=== PATIENT | female | born 1990 | race Caucasian/White ===

== ENCOUNTER → 2018-01-22 10:48 | Outpatient (CLI) | payer OTHER, SELFPAY ==
--- NOTE | 2018-01-22 10:52 | RAD_ITS ---
STUDY: X-RAY CHEST REASON FOR EXAM: Female, 27 years old. EPIGASTRIC PAIN TECHNIQUE: Frontal and lateral views of the chest. COMPARISON: None. FINDINGS: The lungs are clear and expanded. There is no demonstrated pleural abnormality. Normal size heart. Normal mediastinum and cecilia. Normal visualized pulmonary arteries. Normal visualized aortic arch and descending thoracic aorta. Normal visualized thoracic spine. Normal visualized ribs, clavicles, and shoulders. There is no demonstrated abnormality of the visualized soft tissue structures of the upper abdomen. RAD/Chest PA and Lateral IMPRESSION: Normal x-ray examination of the chest. Electronically Signed: Nicole Baires MD at 11:33 EDT Tel , Service support ,
== END ==
PROVIDERS: Family Provider Internal Medicine; PCP Internal Medicine; Visit Provider Physician Assistant
DX: R10.9 Unspecified abdominal pain (principal); Z87.09 Personal history of other diseases of the respiratory system
CPT/HCPCS: 71046

== ENCOUNTER 2018-01-24 12:20 | Observation (INO) | payer OTHER, SELFPAY ==
[2018-01-24] VITALS (7 sets, daily range): BP systolic 110–128; BP diastolic 69–87; PULSE 67–100; RESP 16; TEMP 36.6–37.2; O2SAT 100; BMI 25.6; BMI 25.2
--- NOTE | 2018-01-24 12:54 | ED.VISSUMM ---
- ER Visit Summary Date of Service: 01/24/18 Chief Complaint: Black stool History of Present Illness: The patient is a 27 F with nausea, vomiting, and diarrhea this week. Today she had diarrhea with black stool, 6 episodes. She has a history of cholecystectomy and had a upper endoscopy last year which she said was normal. No history of ulcer. No blood thinners. No history of liver disease or heavy alcohol use. Physical Examination: Vital signs unremarkable. Afebrile. No acute distress. Lungs clear. Heart regular. Abdomen diffusely tender, mildly. No guarding or rebound. No distention or masses. Skin appears normal. Test Results: We will check labs, urinalysis, and Hemoccult. Emergency Department Course and Treatment: Patient received Protonix while awaiting results. Hemoccult positive. Hemoglobin 8.7. Otherwise labs fairly unremarkable. test negative. Patient has remained stable. I spoke with Dr. Montalvo who said he would likely scope the patient tomorrow. I spoke with the hospitalist who will admit. Type and screen pending. Treatment Plan: As above Disposition: Admission Impression: 1. Upper GI bleed 2. Anemia This note was generated with [employer] dictation software. It may contain incorrect words, spelling, and punctuation that were not noted in review of the chart prior to signing ED Disposition - Plan for ED Patient: Chief Complaint: Abd Pain Referrals: Kathie Najera DO [Primary Care Provider] -
[2018-01-24 13:30] LABS: Mucous, Urine 0 SEEN /hpf (<or=2+); Red Blood Cells-Urine 0 SEEN /hpf (0-5); Squamous Epithelial Cells - UA 0 SEEN /hpf (5-10); White Blood Cells 0 SEEN /hpf (0-5)
[2018-01-24 13:37] LABS: Absolute Lymphocyte Count 1.47 X10^3/ul (0.83-4.51); Absolute Neutrophil Count 4.6 X10^3/uL (2.0-7.7); Basophil# 0.04 X10^3/uL; Basophil% 0.6 % (0-1); Color, Urine Yellow (Yellow); Eosinophil# 0.14 X10^3/uL; Glucose, Dipstick Normal (Normal); Hematocrit 28.9 % (37-47); Hemoglobin 8.7 g/dl (12.0-15.0); Ketone-Dipstick Negative (Negative); Leukocyte Esterase-Dipstick Negative /ul (Negative); Lymphocyte # 1.47 X10^3/ul (4.0); Lymphocyte % 21.2 % (19-41); Mean Corp Hgb Conc 30.1 g/gl (32-36); Mean Corpuscular Volume 79.8 fL (81-99); Mean Platelet Vol. 11.6 fl (6.2-12.0); Monocyte# 0.74 X10^3/uL; Monocyte% 10.7 % (0-10); Neutrophil # 4.55 X10^3/uL (2.7-7.7); Neutrophil % 65.5 % (47-70); Nitrite-Dipstick Negative (Negative); Occult Blood-Urine Negative /ul (Negative); POSITIVE COUNT NO; POSITIVE DIFFERENTIAL NO; POSITIVE MORPHOLOGY NO; Platelet Count 250 K/mm3 (150-450); Protein-Dipstick Negative (Negative); RBC Distribution Width CV 14.5 % (11.6-14.6); RBC Distribution Width SD 42.2 fl (35.1-43.9); Red Blood Count 3.62 M/mm3 (4.2-5.4); Specific Gravity, Urine 1.015 (1.002-1.030); Urine Bilirubin Dipstick Negative (Negative); Urine Clarity Sl. Cloudy (Clear); Urine Urobilinogen Normal (Normal); White Blood Count 6.9 K/mm3 (4.4-11.0)
[2018-01-24 13:40] LABS: International Normalized Ratio 1.1; Prothrombin Time (Protime)PT. 13.9 SECONDS (11.7-14.9)
[2018-01-24 13:46] LABS: Bacteria RARE /hpf (None Seen)
[2018-01-24 13:48] LABS: AST(SGOT) 12 U/L (15-37); Alanine Aminotransfer ALT/SGPT 16 U/L (13-56); Albumin, Serum 3.7 g/dL (3.2-5.0); Alkaline Phosphatase 36 U/L (45-117); Anion Gap 6 (5-15); BUN 30 mg/dL (7-18); Calcium,Total 8.8 mg/dL (8.5-10.1); Chloride 108 mmol/L (98-107); Creatinine, Serum 0.86 mg/dL (0.55-1.02); EST Glomerular Filtration Rate 83 mL/min (>60); Est Glom Filt Rate - Afr Amer 100 mL/min (>60); Estimated Creatinine Clearance 90.36 ml/min; Globulin 3.7 g/dL (2.2-4.2); Glucose 70 mg/dL (74-106); Lipase 70 U/L (73-393); Potassium 3.9 mmol/L (3.5-5.1); Protein, Total 7.4 g/dL (6.4-8.2); Sodium Level 142 mmol/L (136-145)
[2018-01-24 13:59] LABS: Pregnancy, Serum, hCG Quali. NEGATIVE Negative (0-9 Nonpreg)
--- NOTE | 2018-01-24 16:29 | CON.PCM_ITS ---
Problem List (1) GI bleed Status: Acute Qualifiers: GI bleed type/associated pathology: melena Qualified Code(s): K92.1 - Melena (2) Anemia Status: Acute Qualifiers: Anemia type: unspecified type Qualified Code(s): D64.9 - Anemia, unspecified Reason for Consult Date of Consultation: 01/24/18 History of Present Illness: The patient is a 27 year old F who presents to the emergency department with a 1 day history of melanotic stools. She has had about a 2 week history of increasing epigastric and right upper quadrant abdominal pain she states that she has not been taking any nonsteroidals or aspirin. She has had + nausea, vomiting and diarrhea. The pain has been aggressive in nature. I have taken out her gallbladder and scoped her in the past and did not find any ulcers. Although her presentation at that time was fairly consistent with peptic ulcer disease. Her hemoglobin in the emergency department was 8.7. Past Medical History Allergies ciprofloxacin [From Cipro] Allergy (Verified 01/24/18 12:22) Hives ciprofloxacin HCl [From Cipro] Allergy (Verified 01/24/18 12:22) Hives levofloxacin [From Levaquin] Allergy (Verified 01/24/18 12:22) Hives prednisone Allergy (Verified 01/24/18 12:22) Hives Home Medications: Ambulatory Orders Medication Instructions Recorded Montelukast [Singulair] 10 mg PO DAILY 04/05/17 Surgical History: cholecystectomy, - - Esophagogastroduodenoscopy with biopsies Smoking Status: Never smoker - *Family History Maternal History Items: No pertinent history Review of Systems Constitutional: Denies: Chills, Fever, Weight Change Eyes: Denies: Blurred vision, Pain, Redness, Vision Change HEENT: Denies: Dysphasia, Ear Pain, Eye Pain, Head Aches, Hearing Changes, Sore Throat Cardiovascular: Denies: Chest Pain, Chest Pressure, Chest Tightness, Palpitations Respiratory: Denies: Cough, Hemoptysis, Shortness of breath at rest, Shortness of breath upon exertion, Wheezing Gastrointestinal: Reports: Abdominal Pain, Diarrhea, Nausea, Melena, Vomiting Genitourinary: Denies: Dysuria, Frequency, Hematuria, Urgency Musculoskeletal: Denies: Joint Pain Psychiatric: Reports: - - Patient has been extremely stressed at work. Patient Problems: Active and Suspected Problems (Last Reviewed 01/22/18 @ 10:19 by Mee Diego) GI bleed (Acute) Anemia (Acute) - Physical Exam General: Alert, Oriented x3 HEENT: Atraumatic, PERRLA, EOMI, Normocephalic Oral: Moist Mucosa Neck: Supple, No JVD Lungs: Clear to auscultation Cardiovascular: Regular rate, Regular Rhythm, No murmurs Abdomen: Bowel Sounds Present, Soft, Non Tender, Non-Distended Extremities: No clubbing, No cyanosis, No edema Skin: No rashes, No breakdown Musculoskeletal: No Tenderness to Palpation of Joints or Extremities Lymphatic: No Cervical, Supraclavicular, or Inguinal Adenopathy Neurological: Cranial nerves II-XII grossly intact Psych/Mental Status: Normal Affect, Appropriate Vital Signs Temp Pulse Resp BP Pulse Ox 98 F 84 16 128/74 H 100 01/24/18 12:23 01/24/18 15:56 01/24/18 15:56 01/24/18 15:56 01/24/18 15:56 Oxygen Delivery Method Room Air Weight: 158 lb 11.725 oz Body Mass Index (BMI) 25.6 Microbiology Past 72 Hours 01/24/18 14:45 Stool Occult Blood (LITA) - Final Stool Occult Blood Positive Laboratory Tests Past 24 Hrs 01/24/18 01/24/18 01/24/18 13:20 13:20 13:20 WBC 6.9 RBC 3.62 L Hgb 8.7 L Hct 28.9 L MCV 79.8 L MCH 24.0 L MCHC 30.1 L RDW 14.5 RDW Differential 42.2 Plt Count 250 MPV 11.6 Immature Gran % (Auto) 0.000 Neut % (Auto) 65.5 Lymph % (Auto) 21.2 [place] % (Auto) 10.7 H Eos % (Auto) 2.0 Baso % (Auto) 0.6 Absolute Neuts (auto) 4.6 Absolute Lymphs (auto) 1.47 Total Counted Not Reportable PT INR APTT Sodium 142 Potassium 3.9 Chloride 108 H Carbon Dioxide 28.0 Anion Gap 6 BUN 30 H Creatinine 0.86 Estim Creat Clear Calc 90.36 Est GFR (MDRD) Af Amer 100 Est GFR (MDRD) Non-Af 83 BUN/Creatinine Ratio 35.0 H Glucose 70 L Calcium 8.8 Total Bilirubin 0.20 AST 12 L ALT 16 Alkaline Phosphatase 36 L Total Protein 7.4 Albumin 3.7 Globulin 3.7 Albumin/Globulin Ratio 1.0 Lipase 70 L Serum , Qual NEGATIVE Urine Color Urine Clarity Urine pH Ur Specific [place] Urine Protein Urine Glucose (UA) Urine Ketones Urine Occult Blood Urine Nitrite Urine Bilirubin Urine Urobilinogen Ur Leukocyte Esterase Urine RBC Urine WBC Ur Squamous Epith Cells Urine Bacteria Urine Mucus Blood Type Antibody Screen 01/24/18 01/24/18 01/24/18 13:20 13:20 15:55 WBC RBC Hgb Hct MCV MCH MCHC RDW RDW Differential Plt Count MPV Immature Gran % (Auto) Neut % (Auto) Lymph % (Auto) [place] % (Auto) Eos % (Auto) Baso % (Auto) Absolute Neuts (auto) Absolute Lymphs (auto) Total Counted PT 13.9 INR 1.1 APTT 31.0 Sodium Potassium Chloride Carbon Dioxide Anion Gap BUN Creatinine Estim Creat Clear Calc Est GFR (MDRD) Af Amer Est GFR (MDRD) Non-Af BUN/Creatinine Ratio Glucose Calcium Total Bilirubin AST ALT Alkaline Phosphatase Total Protein Albumin Globulin Albumin/Globulin Ratio Lipase Serum , Qual Urine Color Yellow Urine Clarity Sl. Cloudy Urine pH 6.0 Ur Specific [place] 1.015 Urine Protein Negative Urine Glucose (UA) Normal Urine Ketones Negative Urine Occult Blood Negative Urine Nitrite Negative Urine Bilirubin Negative Urine Urobilinogen Normal Ur Leukocyte Esterase Negative Urine RBC 0 SEEN Urine WBC 0 SEEN Ur Squamous Epith Cells 0 SEEN Urine Bacteria RARE Urine Mucus 0 SEEN Blood Type Pending Antibody Screen Pending Assessment/Plan Active and Suspected Problems (Last Reviewed 01/22/18 @ 10:19 by Mee Diego) GI bleed (Acute) Anemia (Acute) The plan is to perform an esophagogastroduodenoscopy with biopsy. More than likely we are going to find some sort of peptic ulcer disease either in the stomach or the duodenum. Hopefully we can get her symptoms under control with outpatient proton pump inhibitors.
[2018-01-24] MEDS: 0.9% NaCl Peripheral Flush Adult/Peds IV (17:37)
--- NOTE | 2018-01-24 18:57 | HP.PCM_ITS ---
Problem List (1) GI bleed Status: Acute Qualifiers: GI bleed type/associated pathology: melena Qualified Code(s): K92.1 - Melena (2) Anemia Status: Acute Qualifiers: Anemia type: unspecified type Qualified Code(s): D64.9 - Anemia, unspecified (3) Abdominal pain Status: Acute Qualifiers: Abdominal location: epigastric Qualified Code(s): R10.13 - Epigastric pain History of Present Illness Date of Admission: 01/24/18 Chief Complaint: melena The patient is a 27 year old F non-smoker, social EtOH, occasional NSAIDs, presents with 1 day history melena with epigastric abdominal pain over the past week. Patient reports a stressful job, noted developing epigastric abdominal pain over the past week. She describes pain as heartburn type. This morning she had about 6-7 episodes of diarrheal black stool. She denies dizziness, bright red blood per rectum, chest pain, hematemesis, nausea, or complaints. Emergency department, the patient was hemodynamically stable, blood pressure 128 /87, and afebrile. Laboratories were pertinent for hemoglobin 8.7, MCV 79.8, which represents about a 4 point drop over the past 6 months. Platelet count was normal 250K .INR was normal. Chemistries were noncontributory. Urinalysis , serum , and serum lipase were normal. The patient received IV proton pump inhibitor, supportive care, and was admitted. The patient was seen and examined in the ED. [] Past Medical History Allergies ciprofloxacin [From Cipro] Allergy (Verified 01/24/18 12:22) Hives ciprofloxacin HCl [From Cipro] Allergy (Verified 01/24/18 12:22) Hives levofloxacin [From Levaquin] Allergy (Verified 01/24/18 12:22) Hives prednisone Allergy (Verified 01/24/18 12:22) Hives Home Medications: Ambulatory Orders Medication Instructions Recorded Montelukast [Singulair] 10 mg PO DAILY 04/05/17 Surgical History: cholecystectomy, - - Esophagogastroduodenoscopy with biopsies Smoking Status: Never smoker - *Family History Maternal History Items: No pertinent history Review of Systems Gastrointestinal: Reports: - - as per HPI Gynecological: Reports: - - LMP 1 week ago, normal, menses otherwise normal VTE Information - Inpt Only VTE Present on Admission: No VTE Mechan Device Prophylaxis: None VTE Pharm Prophylaxis ordered?: No Reason prophylaxis not ordered:: Medical Contraindication - low risk, active bleeding Patient Problems: Active and Suspected Problems (Last Reviewed 01/22/18 @ 10:19 by Mee Diego) GI bleed (Acute) Anemia (Acute) Objective: non toxic appearing, HD stable - Physical Exam General: Alert, Oriented x3, Cooperative Oral: Moist Mucosa Neck: No JVD Lungs: Clear to auscultation Cardiovascular: Regular rate, Regular Rhythm, Normal S1, Normal S2 Abdomen: Bowel Sounds Present, Soft, - - tender epigastrium. no masses, no HSM Vital Signs Temp Pulse Resp BP Pulse Ox 98.1 F 93 16 112/69 100 01/24/18 16:51 01/24/18 16:51 01/24/18 16:51 01/24/18 16:52 01/24/18 16:51 Oxygen Delivery Method Room Air Weight: 156 lb 4.924 oz Body Mass Index (BMI) 25.2 Assessment/Plan Active and Suspected Problems (Last Reviewed 01/22/18 @ 10:19 by Mee Diego) GI bleed (Acute) Anemia (Acute) 27-year-old patient who presents with melena, microcytic anemia, and epigastric abdominal pain. Differential diagnosis at this time to include acid peptic disease, erosive esophagitis, Dieulaufoy lesion, AVM/mass. 1. GI bleed, melena 2. Anemia, microcytic, consistent with iron deficiency/blood loss. PLAN admit PCU medical supportive care iron studies appreciate notes from Dr. Montalvo, reviewed IV PPI infusion clear diet, NPO post MN for planned endoscopy repeat H/H at 1999; transfuse PRBCs prn hemoglobin less than 7 full lab in AM Code Visit Inpatient E&M: 57863 Init Hosp L2
[2018-01-24 20:07] LABS: Hematocrit 27.7 % (37-47); Hemoglobin 8.5 g/dl (12.0-15.0)
[2018-01-24 20:48] LABS: Ferritin 3 ng/mL (8-252); Iron 15 ug/dL (50-170); Iron Binding Capacity,Total 340 ug/dL (250-450); PERCENT IRON SATURATION 4.4 % (15.0-55.0)
[2018-01-25] VITALS (12 sets, daily range): BP systolic 97–128; BP diastolic 43–74; PULSE 67–92; RESP 14–18; TEMP 36.6–36.8; O2SAT 97–100; BMI 25.2
--- NOTE | 2018-01-25 07:53 | NURSING ---
pt transported off unit for EGD by endo staff.
--- NOTE | 2018-01-25 08:03 | PCM.OPRPT ---
Problem List (1) GI bleed Status: Acute Qualifiers: GI bleed type/associated pathology: melena Qualified Code(s): K92.1 - Melena (2) Anemia Status: Acute Qualifiers: Anemia type: unspecified type Qualified Code(s): D64.9 - Anemia, unspecified (3) Gastric ulcer Status: Acute Qualifiers: Gastric ulcer chronicity: acute Gastric ulcer complication status: with hemorrhage Qualified Code(s): K25.0 - Acute gastric ulcer with hemorrhage Report of Operation Date of Procedure: 01/25/18 Pre-Operative Diagnosis: k92.1 melena. d64.9 anemia Post-Operative Diagnosis: Same plus k25.0 gastric ulcer with hemorrhage Surgery/Procedure Performed:: 43378 esophagogastroduodenoscopy with biopsy Type of Anesthesia:: IV Sedation Special Medications: 100 mg of Demerol IV. 3 mg of Versed IV Specimen's removed: Biopsy for H. pylori Description of Procedure: Patient was brought into the endoscopy suite. Back of her throat was sprayed with Cetacaine spray. A bite-block was placed. She was placed in the left lateral decubitus position. She was given graded anesthesia. Scope was inserted into the oropharynx and directed down through the esophagus into the stomach and into the duodenum. Operative findings: 1. Duodenum: Normal appearance no mass lesions no ulcerations. 2. Stomach: No less than 6 small gastric ulcers were identified on the greater curvature the stomach and lesser curvature of the stomach the greatest of these was on the lesser curvature all greater like no active bleeding was identified prepyloric area looked good biopsy for H. pylori was obtained. 3 esophagus: Normal appearance no mass lesions no esophagitis no hiatal hernia was identified. Patient will be started on proton pump therapy as well as Carafate. With no active bleeding patient will probably be able to be discharged from the hospital today. She will need another esophagogastroduodenoscopy in 6 weeks. - Admit VTE Documentation VTE Present on Admission: No VTE Mechan Device Prophylaxis: None VTE Pharm Prophylaxis ordered?: No Reason prophylaxis not ordered:: Treatment Not Indicated
[2018-01-25 08:54] LABS: Absolute Lymphocyte Count 1.22 X10^3/ul (0.83-4.51); Absolute Neutrophil Count 2.7 X10^3/uL (2.0-7.7); Basophil# 0.04 X10^3/uL; Basophil% 0.8 % (0-1); Eosinophil# 0.37 X10^3/uL; Eosinophils% 7.6 % (0-5); Hematocrit 27.6 % (37-47); Hemoglobin 8.5 g/dl (12.0-15.0); Lymphocyte # 1.22 X10^3/ul (4.0); Lymphocyte % 25.1 % (19-41); Mean Corp Hgb Conc 30.8 g/gl (32-36); Mean Corpuscular Hgb 24.6 pg (27.0-32.0); Mean Corpuscular Volume 79.8 fL (81-99); Mean Platelet Vol. 11.1 fl (6.2-12.0); Monocyte# 0.53 X10^3/uL; Monocyte% 10.9 % (0-10); Neutrophil # 2.71 X10^3/uL (2.7-7.7); Neutrophil % 55.6 % (47-70); POSITIVE COUNT NO; POSITIVE DIFFERENTIAL NO; POSITIVE MORPHOLOGY NO; Platelet Count 226 K/mm3 (150-450); RBC Distribution Width CV 14.7 % (11.6-14.6); RBC Distribution Width SD 42.2 fl (35.1-43.9); Red Blood Count 3.46 M/mm3 (4.2-5.4); White Blood Count 4.9 K/mm3 (4.4-11.0)
[2018-01-25 09:03] LABS: International Normalized Ratio 1.1; Prothrombin Time (Protime)PT. 14.4 SECONDS (11.7-14.9)
[2018-01-25 09:28] LABS: ALB/GLOB Ratio 0.9 RATIO (0.9-2.4); AST(SGOT) 11 U/L (15-37); Alanine Aminotransfer ALT/SGPT 15 U/L (13-56); Albumin, Serum 3.3 g/dL (3.2-5.0); Alkaline Phosphatase 31 U/L (45-117); Anion Gap 10 (5-15); BUN 17 mg/dL (7-18); BUN/Creat Ratio 20.6 RATIO (10-20); Calcium,Total 8.4 mg/dL (8.5-10.1); Chloride 107 mmol/L (98-107); Creatinine, Serum 0.83 mg/dL (0.55-1.02); EST Glomerular Filtration Rate 86 mL/min (>60); Est Glom Filt Rate - Afr Amer 104 mL/min (>60); Estimated Creatinine Clearance 93.62 ml/min; Globulin 3.5 g/dL (2.2-4.2); Glucose 91 mg/dL (74-106); Potassium 3.9 mmol/L (3.5-5.1); Protein, Total 6.8 g/dL (6.4-8.2); Sodium Level 142 mmol/L (136-145)
--- NOTE | 2018-01-25 11:44 | PCM.PN.HOSP ---
Patient Problems: Active and Suspected Problems (Last Reviewed 01/22/18 @ 10:19 by Mee Diego) GI bleed (Acute) Anemia (Acute) Gastric ulcer (Acute) Subjective: Patient is a 27-year-old with a history of occasional NSAID use who was admitted with a 1 day history of melena and associated epigastric abdominal pain for 4 weeks duration. On presentation she complained about 6 or 7 episodes of black diarrheal stool and denied any dizziness loss of consciousness, chest pain, any hematemesis or any nausea. She had EGD this morning which revealed no less than 6 small ulcers in the duodenum. She has remained stable. In examined this morning. She had no complaints and felt okay. She denied any fever or chills, any shortness of breath, any chest pain, any abdominal pain, any diarrhea vomiting or nausea. Review of systems otherwise negative. Vitals/I&O's: Vital Signs Temp Pulse Resp BP Pulse Ox 98.2 F 86 16 127/66 H 100 01/25/18 08:40 01/25/18 11:00 01/25/18 11:00 01/25/18 11:00 01/25/18 11:00 Oxygen Delivery Method Room Air Weight: 156 lb 4.924 oz Body Mass Index (BMI) 25.2 Intake and Output for Last 24 Hours 01/23/18 01/24/18 01/25/18 23:59 23:59 23:59 Intake Total 672 / 672 Balance 672 / 672 General: Alert, Oriented x3, Cooperative, No apparent distress HEENT: Atraumatic, PERRLA, EOMI, Normocephalic Oral: Moist Mucosa Neck: Supple, No JVD, Negative Carotid Bruits Lungs: Clear to auscultation, Normal air movement, No rhonchi, No wheeze Cardiovascular: Regular rate, Regular Rhythm, Normal S1, Normal S2, No murmurs Abdomen: Bowel Sounds Present, Soft, Non Tender, Non-Distended, No Hepato-splenomegaly, - - laparoscopic cholecystectomy scar on abdomen Extremities: No edema, Capillary Refill Less than 3 Seconds Skin: No rashes, No breakdown Musculoskeletal: No Tenderness to Palpation of Joints or Extremities Lymphatic: No Cervical, Supraclavicular, or Inguinal Adenopathy Neurological: Cranial nerves II-XII grossly intact, Neuro grossly intact Psych/Mental Status: Normal Affect, Appropriate, Alert and oriented to time, place, person, mood and affect Laboratory Results 01/24/18 19:59: Hgb 8.5 L, Hct 27.7 L 01/24/18 19:59: Iron 15 L, TIBC 340, Iron Saturation 4.4 L, Ferritin 3 L 01/25/18 08:40: WBC 4.9, RBC 3.46 L, Hgb 8.5 L, Hct 27.6 L, MCV 79.8 L, MCH 24.6 L, MCHC 30.8 L, RDW 14.7 H, RDW Differential 42.2, Plt Count 226, MPV 11.1, Immature Gran % (Auto) 0.000, Neut % (Auto) 55.6, Lymph % (Auto) 25.1, [place] % (Auto) 10.9 H, Eos % (Auto) 7.6 H, Baso % (Auto) 0.8, Absolute Neuts (auto) 2.7, Absolute Lymphs (auto) 1.22, Total Counted Not Reportable 01/25/18 08:40: PT 14.4, INR 1.1 01/25/18 08:40: Sodium 142, Potassium 3.9, Chloride 107, Carbon Dioxide 25.0, Anion Gap 10, BUN 17, Creatinine 0.83, Estim Creat Clear Calc 93.62, Est GFR (MDRD) Af Amer 104, Est GFR (MDRD) Non-Af 86, BUN/Creatinine Ratio 20.6 H, Glucose 91, Calcium 8.4 L, Magnesium 2.0, Total Bilirubin 0.30, AST 11 L, ALT 15, Alkaline Phosphatase 31 L, Total Protein 6.8, Albumin 3.3, Globulin 3.5, Albumin/Globulin Ratio 0.9 Current Medications Acetaminophen (Tylenol) 650 mg PO Q6H PRN PRN PRN Reason: Mild Pain (scale 0-3)/T>100.7 Pantoprazole Sodium 80 mg/ (Sodium Chloride) 100 mls @ 10 mls/hr CONT INF Q10H [facility] Last Admin: 01/25/18 02:18 Dose: 10 mls/hr Magnesium Hydroxide (Milk Of Magnesia) 30 ml PO DAILY PRN PRN PRN Reason: Constipation Melatonin (Melatonin) 3 mg PO QHS PRN PRN Reason: SLEEP Morphine Sulfate () 1 - 2 mg IV Q4H PRN PRN PRN Reason: Moderate Pain (pain scale 4-5) Nutritional Formula (Lactose Free) (Ensure Clear) 120 ml PO 4X/DAY [facility] Last Admin: 01/25/18 11:07 Dose: 120 ml Ondansetron HCl (Zofran) 4 mg IV Q8H PRN PRN PRN Reason: Nausea Sodium Chloride () 5 - 30 ml IV UD PRN PRN Reason: SALINE FLUSH Last Admin: 01/24/18 17:37 Dose: 10 ml Sucralfate (Carafate) 1 gm PO 1HR_ACHS [facility] Medical Necessity - Tobacco Use Smoking Status: Never smoker Assessment/Plan Active and Suspected Problems (Last Reviewed 01/22/18 @ 10:19 by Mee Diego) GI bleed (Acute) Anemia (Acute) Gastric ulcer (Acute) 27-year-old female presented with melena and epigastric abdominal pain. Being managed for peptic ulcer disease and anemia 1. UGI bleed due to peptic ulcer disease presented with melena stools and abdominal pain of a week's duration has a lot of stress with her work, but denies any chronic NSAID use had EGD this morning which revealed no less than 6 small ulcers in the duodenum biopsy for H pylori taken; per discussion with Dr Montalvo, he highly suspects it will be negative, and so doesnt want her treated for H pylori now will give po prilosec 40mg daily and sucralfate 1gram qid to follow up with Dr Montalvo for repeat EGD in 6 weeks 2. Iron deficiency anemia hb is 8.5. Iron panel indicative of iron deficiency anemia- iron level 15, iron saturation-4.4, TIBC 340, ferritin-3 will give ferrous sulfate 325mg bid. to follow up with PCP for repeat CBC in a 4 weeks Disposition: [facility]. To follow up with PCP and Dr Montalvo. Code Visit OBSV E&M: 26304 Initial observation care L2
--- NOTE | 2018-01-25 11:54 | PN_ITS ---
Patient Problems: Active and Suspected Problems (Last Reviewed 01/22/18 @ 10:19 by Mee Diego) GI bleed (Acute) Anemia (Acute) Gastric ulcer (Acute) Subjective: Patient is a 27-year-old with a history of occasional NSAID use who was admitted with a 1 day history of melena and associated epigastric abdominal pain for 4 weeks duration. On presentation she complained about 6 or 7 episodes of black diarrheal stool and denied any dizziness loss of consciousness , chest pain, any hematemesis or any nausea. She had EGD this morning which revealed no less than 6 small ulcers in the duodenum. She has remained stable. In examined this morning. She had no complaints and felt okay. She denied any fever or chills, any shortness of breath, any chest pain, any abdominal pain, any diarrhea vomiting or nausea. Review of systems otherwise negative. Vitals/I&O's: Vital Signs Temp Pulse Resp BP Pulse Ox 98.2 F 86 16 127/66 H 100 01/25/18 08:40 01/25/18 11:00 01/25/18 11:00 01/25/18 11:00 01/25/18 11:00 Oxygen Delivery Method Room Air Weight: 156 lb 4.924 oz Body Mass Index (BMI) 25.2 Intake and Output for Last 24 Hours 01/23/18 01/24/18 01/25/18 23:59 23:59 23:59 Intake Total 672 / 672 Balance 672 / 672 General: Alert, Oriented x3, Cooperative, No apparent distress HEENT: Atraumatic, PERRLA, EOMI, Normocephalic Oral: Moist Mucosa Neck: Supple, No JVD, Negative Carotid Bruits Lungs: Clear to auscultation, Normal air movement, No rhonchi, No wheeze Cardiovascular: Regular rate, Regular Rhythm, Normal S1, Normal S2, No murmurs Abdomen: Bowel Sounds Present, Soft, Non Tender, Non-Distended, No Hepato- splenomegaly, - - laparoscopic cholecystectomy scar on abdomen Extremities: No edema, Capillary Refill Less than 3 Seconds Skin: No rashes, No breakdown Musculoskeletal: No Tenderness to Palpation of Joints or Extremities Lymphatic: No Cervical, Supraclavicular, or Inguinal Adenopathy Neurological: Cranial nerves II-XII grossly intact, Neuro grossly intact Psych/Mental Status: Normal Affect, Appropriate, Alert and oriented to time, place, person, mood and affect Laboratory Results 01/24/18 19:59: Hgb 8.5 L, Hct 27.7 L 01/24/18 19:59: Iron 15 L, TIBC 340, Iron Saturation 4.4 L, Ferritin 3 L 01/25/18 08:40: WBC 4.9, RBC 3.46 L, Hgb 8.5 L, Hct 27.6 L, MCV 79.8 L, MCH 24.6 L, MCHC 30.8 L, RDW 14.7 H, RDW Differential 42.2, Plt Count 226, MPV 11.1 , Immature Gran % (Auto) 0.000, Neut % (Auto) 55.6, Lymph % (Auto) 25.1, [place] % (Auto) 10.9 H, Eos % (Auto) 7.6 H, Baso % (Auto) 0.8, Absolute Neuts (auto) 2.7 , Absolute Lymphs (auto) 1.22, Total Counted Not Reportable 01/25/18 08:40: PT 14.4, INR 1.1 01/25/18 08:40: Sodium 142, Potassium 3.9, Chloride 107, Carbon Dioxide 25.0, Anion Gap 10, BUN 17, Creatinine 0.83, Estim Creat Clear Calc 93.62, Est GFR ( MDRD) Af Amer 104, Est GFR (MDRD) Non-Af 86, BUN/Creatinine Ratio 20.6 H, Glucose 91, Calcium 8.4 L, Magnesium 2.0, Total Bilirubin 0.30, AST 11 L, ALT 15 , Alkaline Phosphatase 31 L, Total Protein 6.8, Albumin 3.3, Globulin 3.5, Albumin/Globulin Ratio 0.9 Current Medications Acetaminophen (Tylenol) 650 mg PO Q6H PRN PRN PRN Reason: Mild Pain (scale 0-3)/T>100.7 Pantoprazole Sodium 80 mg/ (Sodium Chloride) 100 mls @ 10 mls/hr CONT INF Q10H SARMAD Last Admin: 01/25/18 02:18 Dose: 10 mls/hr Magnesium Hydroxide (Milk Of Magnesia) 30 ml PO DAILY PRN PRN PRN Reason: Constipation Melatonin (Melatonin) 3 mg PO QHS PRN PRN Reason: SLEEP Morphine Sulfate () 1 - 2 mg IV Q4H PRN PRN PRN Reason: Moderate Pain (pain scale 4-5) Nutritional Formula (Lactose Free) (Ensure Clear) 120 ml PO 4X/DAY [facility] Last Admin: 01/25/18 11:07 Dose: 120 ml Ondansetron HCl (Zofran) 4 mg IV Q8H PRN PRN PRN Reason: Nausea Sodium Chloride () 5 - 30 ml IV UD PRN PRN Reason: SALINE FLUSH Last Admin: 01/24/18 17:37 Dose: 10 ml Sucralfate (Carafate) 1 gm PO 1HR_ACHS [facility] Medical Necessity - Tobacco Use Smoking Status: Never smoker Assessment/Plan Active and Suspected Problems (Last Reviewed 01/22/18 @ 10:19 by Mee Diego) GI bleed (Acute) Anemia (Acute) Gastric ulcer (Acute) 27-year-old female presented with melena and epigastric abdominal pain. Being managed for peptic ulcer disease and anemia 1. UGI bleed due to peptic ulcer disease * presented with melena stools and abdominal pain of a week's duration * has a lot of stress with her work, but denies any chronic NSAID use * had EGD this morning which revealed no less than 6 small ulcers in the duodenum * biopsy for H pylori taken; per discussion with Dr Montalvo, he highly suspects it will be negative, and so doesnt want her treated for H pylori now * will give po prilosec 40mg daily and sucralfate 1gram qid * to follow up with Dr Montalvo for repeat EGD in 6 weeks 2. Iron deficiency anemia * hb is 8.5. Iron panel indicative of iron deficiency anemia- iron level 15, iron saturation-4.4, TIBC 340, ferritin-3 * will give ferrous sulfate 325mg bid. * to follow up with PCP for repeat CBC in a 4 weeks * * Disposition: ri home. To follow up with PCP and Dr Montalvo. * Code Visit OBSV E&M: 64180 Initial observation care L2
--- NOTE | 2018-01-25 12:03 | PCM.DC ---
- Discharge Diagnoses Current Active Problems: Current Active and Chronic Problems (Last Reviewed 01/22/18 @ 10:19 by Mee Diego) GI bleed (Acute) Anemia (Acute) Gastric ulcer (Acute) You will use the following diet at home:: No restrictions Your food should be the consistency of: Regular Your liquids should be the consistency of: Regular/Thin Discharge Activity: Return to Normal Activity May resume sexual activity in: No Restrictions Weight Bearing Status: Weight bearing as tolerated Instructions: Anemia Additional Instructions: Please call your doctor if you have any rectal bleeding or vomit blood. Allergies/Adverse Reactions: Allergies ciprofloxacin [From Cipro] Allergy (Verified 01/24/18 12:22) Hives ciprofloxacin HCl [From Cipro] Allergy (Verified 01/24/18 12:22) Hives levofloxacin [From Levaquin] Allergy (Verified 01/24/18 12:22) Hives prednisone Allergy (Verified 01/24/18 12:22) Hives Medications to take at Discharge Montelukast [Singulair] 10 mg PO DAILY 04/05/17 Omeprazole [Prilosec] 20 mg PO BID 30 Days #60 cap 01/25/18 Sucralfate 1 gm PO 4X/DAY 30 Days #1200 mls 01/25/18 The following prescriptions were given: Omeprazole [Prilosec] 20 mg PO BID 30 Days #60 cap Sucralfate 1 gm PO 4X/DAY 30 Days #1200 mls Primary Care Physician: Kathie Najera DO [Primary Care Provider] - Please Follow Up With: Mitchell Montalvo MD When: in 4 weeks
--- NOTE | 2018-01-25 12:11 | PCM.DC.SUM ---
Discharge Date and Diagnosis Date of Admission: 01/24/18 Date of Discharge: 01/25/18 - Primary Discharge Diagnosis Active and Suspected Problems (Last Reviewed 01/22/18 @ 10:19 by Mee Diego) GI bleed (Acute) Anemia (Acute) Gastric ulcer (Acute) Hospital Course and Treatment Imaging Results: Labs & Testing WBC 4.9 K/mm3 (4.4-11.0) 01/25/18 08:40 RBC 3.46 M/mm3 (4.2-5.4) L 01/25/18 08:40 Hgb 8.5 g/dl (12.0-15.0) L 01/25/18 08:40 Hct 27.6 % (37-47) L 01/25/18 08:40 MCV 79.8 fL (81-99) L 01/25/18 08:40 MCH 24.6 pg (27.0-32.0) L 01/25/18 08:40 MCHC 30.8 g/gl (32-36) L 01/25/18 08:40 RDW 14.7 % (11.6-14.6) H 01/25/18 08:40 RDW Differential 42.2 fl (35.1-43.9) 01/25/18 08:40 Plt Count 226 K/mm3 (150-450) 01/25/18 08:40 MPV 11.1 fl (6.2-12.0) 01/25/18 08:40 Immature Gran % (Auto) 0.000 % (0.0-0.9) 01/25/18 08:40 Neut % (Auto) 55.6 % (47-70) 01/25/18 08:40 Lymph % (Auto) 25.1 % (19-41) 01/25/18 08:40 [place] % (Auto) 10.9 % (0-10) H 01/25/18 08:40 Eos % (Auto) 7.6 % (0-5) H 01/25/18 08:40 Baso % (Auto) 0.8 % (0-1) 01/25/18 08:40 Absolute Neuts (auto) 2.7 X10^3/uL (2.0-7.7) 01/25/18 08:40 Absolute Lymphs (auto) 1.22 X10^3/ul (0.83-4.51) 01/25/18 08:40 Total Counted Not Reportable 01/25/18 08:40 PT 14.4 SECONDS (11.7-14.9) 01/25/18 08:40 INR 1.1 01/25/18 08:40 APTT 31.0 Seconds (24.1-36.2) 01/24/18 13:20 Sodium 142 mmol/L (136-145) 01/25/18 08:40 Potassium 3.9 mmol/L (3.5-5.1) 01/25/18 08:40 Chloride 107 mmol/L (98-107) 01/25/18 08:40 Carbon Dioxide 25.0 mmol/L (21.0-32.0) 01/25/18 08:40 Anion Gap 10 (5-15) 01/25/18 08:40 BUN 17 mg/dL (7-18) 01/25/18 08:40 Creatinine 0.83 mg/dL (0.55-1.02) 01/25/18 08:40 Estim Creat Clear Calc 93.62 ml/min 01/25/18 08:40 Est GFR (MDRD) Af Amer 104 mL/min (>60) 01/25/18 08:40 Est GFR (MDRD) Non-Af 86 mL/min (>60) 01/25/18 08:40 BUN/Creatinine Ratio 20.6 RATIO (10-20) H 01/25/18 08:40 Glucose 91 mg/dL (74-106) 01/25/18 08:40 Calcium 8.4 mg/dL (8.5-10.1) L 01/25/18 08:40 Magnesium 2.0 mg/dL (1.6-2.6) 01/25/18 08:40 Iron 15 ug/dL (50-170) L 01/24/18 19:59 TIBC 340 ug/dL (250-450) 01/24/18 19:59 Iron Saturation 4.4 % (15.0-55.0) L 01/24/18 19:59 Ferritin 3 ng/mL (8-252) L 01/24/18 19:59 Total Bilirubin 0.30 mg/dL (0.20-1.00) 04/07/18 08:40 AST 11 U/L (15-37) L 01/25/18 08:40 ALT 15 U/L (13-56) 01/25/18 08:40 Alkaline Phosphatase 31 U/L (45-117) L 01/25/18 08:40 Total Protein 6.8 g/dL (6.4-8.2) 01/25/18 08:40 Albumin 3.3 g/dL (3.2-5.0) 01/25/18 08:40 Globulin 3.5 g/dL (2.2-4.2) 01/25/18 08:40 Albumin/Globulin Ratio 0.9 RATIO (0.9-2.4) 01/25/18 08:40 Lipase 70 U/L (73-393) L 01/24/18 13:20 Serum , Qual NEGATIVE Negative (0-9 Nonpreg) 01/24/18 13:20 Urine Color Yellow (Yellow) 01/24/18 13:20 Urine Clarity Sl. Cloudy (Clear) 01/24/18 13:20 Urine pH 6.0 (5.0 - 8.0) 01/24/18 13:20 Ur Specific [place] 1.015 (1.002-1.030) 01/24/18 13:20 Urine Protein Negative mg/dl (Negative) 01/24/18 13:20 Urine Glucose (UA) Normal mg/dl (Normal) 01/24/18 13:20 Urine Ketones Negative mg/dl (Negative) 01/24/18 13:20 Urine Occult Blood Negative /ul (Negative) 01/24/18 13:20 Urine Nitrite Negative (Negative) 01/24/18 13:20 Urine Bilirubin Negative mg/dL (Negative) 01/24/18 13:20 Urine Urobilinogen Normal mg/dl (Normal) 01/24/18 13:20 Ur Leukocyte Esterase Negative /ul (Negative) 01/24/18 13:20 Urine RBC 0 SEEN /hpf (0-5) 01/24/18 13:20 Urine WBC 0 SEEN /hpf (0-5) 01/24/18 13:20 Ur Squamous Epith Cells 0 SEEN /hpf (5-10) 01/24/18 13:20 Urine Bacteria RARE /hpf (None Seen) 01/24/18 13:20 Urine Mucus 0 SEEN /hpf (<or=2+) 01/24/18 13:20 Blood Type A POSITIVE 01/24/18 15:55 Antibody Screen NEGATIVE 01/24/18 15:55 Procedures: EGD - at least 6 small gastric ulcers in thh greateer and less curvature of stomach. No active bleeding identified. Esophagus normal. Summary of Care Provided: The patient is a 27 year old F who was admitted with a complaint of 1 day history of melena, and epigastric pain of 4 weeks duration. She had 6-7 black, watery stools prior to discharge. Hb was 8.5 on admission. stool for occult blood was positive. EGD showed at least 6 small gastric ulcers in greater and lesser curvatures of stomach, with no active bleeding identified. Iron panel was indicative of iron deficiency anemia. H Pylori testing was done, but per surgeon, he had a very low pretest probability of H pylori infection. Results were not available at time of discharge, so per discussion with surgeon, we deferred treatment for H pylori. She remained stable and was discharged home on Prilosec and sucralfate, as well as Po iron for anemia. She is to follow up with Dr Montalvo for follow up EGD in 4-6 weeks. She is to follow up with her PCP in one week. [] Discharge Diet: No Restrictions Discharge Activity: Return to Normal Activity May resume sexual activity in: No Restrictions Weight Bearing Status: Weight bearing as tolerated Home Medications: Medications to take at Discharge Montelukast [Singulair] 10 mg PO DAILY 04/05/17 Ferrous Sulfate 325 mg PO TIDCM 30 Days #90 tab 01/25/18 Omeprazole [Prilosec] 20 mg PO BID 30 Days #60 cap 01/25/18 Sucralfate 1 gm PO 4X/DAY 30 Days #1200 mls 01/25/18 Following Prescrptions Were Given to Patient: Omeprazole [Prilosec] 20 mg PO BID 30 Days #60 cap Ferrous Sulfate 325 mg PO TIDCM 30 Days #90 tab Sucralfate 1 gm PO 4X/DAY 30 Days #1200 mls Primary Care Physician: Kathie Najera DO [Primary Care Provider] - Please follow up with your Primary Care Physician in: one week Please Follow Up With: Mitchell Montalvo MD When: in 4 weeks Patient Instructions: Anemia Medical Necessity - Tobacco Use Smoking Status: Never smoker Meaningful Use Info Meaningful Use Diagnoses (Choose all that apply): None applicable Code Visit Inpatient E&M: 82977 Disch Hosp
== END 2018-01-25 12:32 | disposition home or self-care (01) ==
LOC: ED 13:15 → PCU 17:25
PROVIDERS: Surgery; Admitting Provider Internal Medicine; Emergency Provider Emergency Medicine; Family Provider Internal Medicine; PCP Internal Medicine; Visit Provider Student in an Organized Health Care Education/Training Program
PROC: (CPT 43239; principal; 2018-01-25 07:55)
DX: K25.0 Acute gastric ulcer with hemorrhage (principal); D50.9 Iron deficiency anemia, unspecified; Z90.49 Acquired absence of other specified parts of digestive tract
CPT/HCPCS: 43239; 36415; 80053; 81001; 82274; 82728; 83540; 83550; 83690; 83735; 84703; 85014; 85018; 85025; 85610; 85730; 86850; 86900; 96365; 96366; 97802; 99152; 99282; J7050; A4216; J3490

== ENCOUNTER 2018-03-12 08:20 | Day surgery (SDC) | payer OTHER, SELFPAY ==
[2018-03-12 08:42] LABS: Internal QC Validated? YES +Cl - CLEAR BKGD
[2018-03-12 08:47] LABS: Pregnancy, Urine Negative Negative
[2018-03-12 09:09] VITALS: BP 111/75; PULSE 72; RESP 16; TEMP 36.9; O2SAT 100; BMI 26.1
--- NOTE | 2018-03-12 09:43 | PCM.OPRPT ---
Problem List (1) Gastric ulcer Status: Acute Qualifiers: (2) Epigastric pain Status: Acute Report of Operation Date of Procedure: 03/12/18 Pre-Operative Diagnosis: k25.0 gastric ulcer. r10.13 epigastric abdominal pain Post-Operative Diagnosis: Same Surgery/Procedure Performed:: [id number] esophagogastroduodenoscopy with biopsy Type of Anesthesia:: MAC Anesthesiologist: Ba Mitchell Description of Procedure: Patient was brought into the endoscopy unit. Back of her throat was sprayed with Cetacaine spray. A bite-block was placed. She was given graded anesthesia. Scope was inserted in the back of the throat and brought down through the esophagus into the stomach and into the duodenum. Operative findings: 1. Duodenum: Normal appearance no mass lesions no ulcerations. 2. Stomach: Multiple small punctated ulcerations have all healed. She does have some significant linear gastritis within the stomach itself. Biopsy for H. pylori was obtained. Retroflexion did not show any signs of hiatal hernia. The larger ulcer on the lesser curvature the stomach had all healed. There was no signs of active bleeding. 3. Esophagus: Normal appearance no mass lesions no esophagitis Z line was at 40 cm. Scope shows improvement in the ulcerations of the stomach and actually quite surprised to see the linear all irritations. 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 - Admit VTE Documentation VTE Present on Admission: No VTE Mechan Device Prophylaxis: None VTE Pharm Prophylaxis ordered?: No Reason prophylaxis not ordered:: Treatment Not Indicated
[2018-03-12 09:45] VITALS: BP 102/63; BP 111/75; PULSE 66; RESP 19; TEMP 36.9; O2SAT 100
[2018-03-12 09:50] VITALS: BP 104/67; BP 111/75; PULSE 60; RESP 16; O2SAT 99
[2018-03-12 09:55] VITALS: BP 110/67; BP 111/75; PULSE 61; RESP 16; O2SAT 99
[2018-03-12 10:00] VITALS: BP 107/69; BP 111/75; PULSE 54; RESP 16; TEMP 37.5; O2SAT 98
[2018-03-12 10:15] VITALS: BP 111/75
== END 2018-03-12 10:18 | disposition home or self-care (01) ==
LOC: EN 08:21 → AC 08:23
PROVIDERS: Family Provider Internal Medicine; PCP Internal Medicine; Visit Provider Surgery
PROC: 0DJ08ZZ Inspection of Upper Intestinal Tract, Via Natural or Artificial Opening Endoscopic (ICD-10-PCS; CPT 43235; principal; 2018-03-12 09:55)
DX: K25.0 Acute gastric ulcer with hemorrhage (principal); D64.9 Anemia, unspecified; K21.9 Gastro-esophageal reflux disease without esophagitis; J01.90 Acute sinusitis, unspecified; Z79.899 Other long term (current) drug therapy
CPT/HCPCS: 43239; 81025; J7120

== ENCOUNTER → 2018-03-27 09:20 | Outpatient (CLI) | payer OTHER, SELFPAY ==
--- NOTE | 2018-03-27 09:20 | DT_ITS ---
This patient was seen during an EMR downtime March 24, 2018 - March 31, 2018. This patient may have a combination of paper and electronic documentation or all paper documentation. All documentation is viewable within the e-chart portion of [employer] for each patient visit.
== END ==
PROVIDERS: Family Provider Internal Medicine; PCP Internal Medicine; Visit Provider Physician Assistant
DX: K25.4 Chronic or unspecified gastric ulcer with hemorrhage (principal)
CPT/HCPCS: 36415; 82941

== ENCOUNTER → 2018-04-21 13:38 | Outpatient (CLI) | payer OTHER, SELFPAY ==
[2018-04-21 14:21] LABS: Absolute Neutrophil Count 4.7 X10^3/uL (2.0-7.7); Basophil# 0.02 X10^3/uL; Basophil% 0.3 % (0-1); Eosinophil# 0.36 X10^3/uL; Eosinophils% 4.9 % (0-5); Hemoglobin 12.2 g/dl (12.0-15.0); Lymphocyte % 21.9 % (19-41); Mean Corp Hgb Conc 30.5 g/gl (32-36); Mean Corpuscular Hgb 26.1 pg (27.0-32.0); Mean Corpuscular Volume 85.5 fL (81-99); Mean Platelet Vol. 12.1 fl (6.2-12.0); Monocyte# 0.65 X10^3/uL; Monocyte% 8.9 % (0-10); Neutrophil # 4.68 X10^3/uL (2.7-7.7); Neutrophil % 63.9 % (47-70); Platelet Count 241 K/mm3 (150-450); RBC Distribution Width CV 15.5 % (11.6-14.6); RBC Distribution Width SD 46.6 fl (35.1-43.9); Red Blood Count 4.68 M/mm3 (4.2-5.4); White Blood Count 7.3 K/mm3 (4.4-11.0)
[2018-04-21 14:22] LABS: POSITIVE COUNT NO; POSITIVE DIFFERENTIAL NO; POSITIVE MORPHOLOGY NO
[2018-04-21 15:09] LABS: Anion Gap 8 (5-15); BUN 16 mg/dL (7-18); BUN/Creat Ratio 16.7 RATIO (10-20); Calcium,Total 8.8 mg/dL (8.5-10.1); Chloride 107 mmol/L (98-107); Creatinine, Serum 0.96 mg/dL (0.55-1.02); EST Glomerular Filtration Rate 73 mL/min (>60); Est Glom Filt Rate - Afr Amer 88 mL/min (>60); Glucose 104 mg/dL (74-106); Potassium 3.8 mmol/L (3.5-5.1); Sodium Level 142 mmol/L (136-145)
== END ==
PROVIDERS: Family Provider Internal Medicine; PCP Internal Medicine; Visit Provider Physician Assistant
DX: R53.1 Weakness (principal)
CPT/HCPCS: 36415; 80048; 85025

== ENCOUNTER → 2018-07-15 15:59 | Outpatient (CLI) | payer OTHER, SELFPAY ==
--- NOTE | 2018-07-15 16:05 | RAD_ITS ---
STUDY: X-RAY - RIGHT WRIST REASON FOR EXAM: Female, 28 years old. Wrist strain. Injury. TECHNIQUE: 3 view(s) of the wrist were obtained. COMPARISON: None. FINDINGS: Normal visualized distal radius and ulna. Normal radiocarpal articulation. Normal distal radioulnar articulation. Normal carpal bones. Normal carpal articulations. Normal carpometacarpal articulation of the thumb. Normal second through fifth carpometacarpal articulations. Normal visualized metacarpal bones. The soft tissue structures are unremarkable. There is no demonstrated acute fracture. RAD/Wrist min 3 Views IMPRESSION: Normal x-ray examination of the wrist. Electronically Signed: Lefty Kenyon MD at 16:23 EDT , Service support ,
== END ==
PROVIDERS: Family Provider Internal Medicine; PCP Internal Medicine; Referring Provider Physician Assistant Surgical; Visit Provider Physician Assistant Surgical
DX: S66.911A Strain of unspecified muscle, fascia and tendon at wrist and hand level, right hand, initial encounter (principal); X58.XXXA Exposure to other specified factors, initial encounter; Y93.9 Activity, unspecified; Y92.9 Unspecified place or not applicable; Y99.9 Unspecified external cause status
CPT/HCPCS: 73110

== ENCOUNTER → 2018-11-04 17:02 | Outpatient (CLI) | payer OTHER, SELFPAY ==
[2018-11-04 15:35] VITALS: BMI 26.2
[2018-11-09 11:27] LABS: HPV APTIMA, High Risk Negative (Negative)
== END ==
PROVIDERS: Family Provider Internal Medicine; PCP Internal Medicine; Referring Provider Obstetrics & Gynecology; Visit Provider Obstetrics & Gynecology
DX: Z12.4 Encounter for screening for malignant neoplasm of cervix (principal)
CPT/HCPCS: 87624; 88175; G0145

== ENCOUNTER 2019-02-10 17:06 | Emergency (ER) | payer OTHER, SELFPAY ==
[2018-11-04 15:35] VITALS: BMI 26.2
[2019-02-10 17:07] VITALS: BP 113/68; PULSE 82; RESP 16; TEMP 36.2; O2SAT 99; BMI 24.4
[2019-02-10] MEDS: 0.9% Normal Saline 1,000 ML 1000 ML IV ×2 (19:09→20:22)
[2019-02-10] MEDS: Ondansetron 4 MG/2 ML Vial IV (19:09)
[2019-02-10 19:14] VITALS: BP 112/76; PULSE 61; RESP 16; O2SAT 100
--- NOTE | 2019-02-10 19:22 | ED.VIS.GEN ---
History of Present Illness Chief Complaint: Abd Pain Detail of Chief Complaint: Nausea, vomiting and diarrhea Informant: Patient Onset: - - Onset of symptoms Saturday Context: Sudden Onset Timing: Intermittent, Waxes and wanes Quality: Colicky generalized pain with N/V/D Location: Generalized Current Severity: Mild Maximum Severity: Severe Worsened by: Vomiting and diarrhea Relieved by: Nothing Associated Symptoms: Thirst, dry mouth and orthostatic symptoms Narrative: Patient is a 28-year-old woman who presents with generalized colicky abdominal pain with nausea, vomiting diarrhea that started Saturday. She had several/many episodes of nausea vomiting on Saturday and Saturday. She is only vomited 4 times a day. She now has profuse diarrhea. She did not initially have profuse diarrhea. She denies hematemesis, melena hematochezia. No ill contacts. No antibiotic use in the past month. No history of C. difficile. History of peptic ulcer disease. Prior similar symptoms: No Recent Illness/Hospitalization: No - Past Medical History (1) Gastric ulcer Status: Acute (2) Sinusitis, acute Status: Acute Past Medical History - Allergies and Home Meds Allergies/Adverse Reactions: Allergies ciprofloxacin [From Cipro] Allergy (Verified 11/04/18 15:35) Hives ciprofloxacin HCl [From Cipro] Allergy (Verified 11/04/18 15:35) Hives levofloxacin [From Levaquin] Allergy (Verified 11/04/18 15:35) Hives prednisone Allergy (Verified 11/04/18 15:35) Hives Primary Care Physician: Oscar Wisdom MD [Primary Care Provider] - Prior records reviewed: Yes Surgical History: cholecystectomy, - - Esophagogastroduodenoscopy with biopsies Lives: Alone Smoking Status: Never smoker Drugs: None - Family History Maternal Family History: Family History (Last Updated 11/04/18 @ 15:37 by Melodie Mckeon) Grandfather Myocardial infarction Family History: Reports: No pertinent history Review of Systems General: Reports: Fever, Malaise, Subjective. Denies: Chills, Sweats, Weight loss, - Eyes: Denies: Visual changes - bilaterally, Diplopia ENT: Denies: Rhinorrhea, Sore throat Cardiovascular: Denies: Chest pain, Palpitations Respiratory: Denies: Dyspnea, Cough, Dyspnea on exertion Gastrointestinal: Reports: Abdominal pain, Nausea, Vomiting, Diarrhea. Denies: Constipation, Melena, Hematochezia, -, - Genitourinary: Denies: Dysuria, Hematuria, Frequency Musculoskeletal: Denies: Back pain, Extremity Pain Skin: Denies: Rash, Wounds Neurological: Reports: Weakness. Denies: Headache, Parasthesia, Numbness Hematologic: Denies: Easy bruising, Easy bleeding Physical Exam Vital Signs/Narrative: Vital Signs Temp Pulse Resp BP Pulse Ox 02/10/19 19:14 61 16 112/76 100 02/10/19 17:07 97.2 F L 82 16 113/68 99 Inital Vital Signs reviewed: Yes General: Well nourished, Well developed, No Acute Distress - She appears in no distress however she does appear ill. Head: Normocephalic, Atraumatic Eyes: Perrl, EOMI. Negative for: Pale conjunctiva, Scleral icterus, - ENT: No rhinorrhea, Dry mucous membranes Neck: Supple, Nontender Cardiovascular: Regular rate, Regular rhythm, No murmurs, Normal S1, Normal S2 Respiratory: No distress, CTA bilaterally, Chest nontender Abdomen: Soft, Nondistended, No masses, Tender, Hyperactive bowel sounds. Negative for: Normal bowel sounds, Guarding, Rebound tenderness, Hypoactive bowel sounds, Hepatomegaly, Splenomegaly, Mass Back: Nontender, Normal Inspection. Negative for: CVA tenderness Extremities: Nontender, No edema Skin: Normal color, No rash Neurological: Alert, Oriented x3, Cranial nerves II-XII grossly intact, Normal Strength, Normal Sensation Psychological: Normal affect, Normal Mood Diagnostic/Tx/Re-eval Laboratory Results 02/10/19 02/10/19 02/10/19 19:05 19:05 19:05 WBC 4.1 L RBC 4.96 Hgb 15.1 H Hct 44.3 MCV 89.3 MCH 30.4 MCHC 34.1 RDW 12.9 RDW Differential 42.1 Plt Count 165 MPV 11.7 Immature Gran % (Auto) 0.200 Neut % (Auto) 60.0 Lymph % (Auto) 17.2 L [place] % (Auto) 15.0 H Eos % (Auto) 7.4 H Baso % (Auto) 0.2 Absolute Neuts (auto) 2.5 Absolute Lymphs (auto) 0.70 L Total Counted Not Reportable Sodium 137 Potassium 3.5 Chloride 106 Carbon Dioxide 25.0 Anion Gap 6 BUN 12 Creatinine 0.84 Estim Creat Clear Calc 95.23 Est GFR (MDRD) Af Amer 102 Est GFR (MDRD) Non-Af 84 BUN/Creatinine Ratio 14.3 Glucose 91 Calcium 8.5 Serum , Qual NEGATIVE - Medical Decision Making Per history and physical patient is dehydrated. She received 2 L of normal saline. Zofran for her nausea. Will then treat with Bentyl and Imodium for her pain and diarrhea. Patient was reassessed at 2030. She is smiling sitting upright and looks markedly improved. She states she feels better. She has had no vomiting or diarrhea since presentation. She tolerated p.o. challenge. Once second liter of normal saline infusions will discharge to home. ED Disposition - Plan for ED Patient: Disposition: Home or Assisted Living Diagnosis: Abdominal pain, vomiting, and diarrhea, Moderate dehydration Instructions: ED Vomiting Diarrhea Nonspecific Ad Referrals: Oscar Wisdom MD [Primary Care Provider] - 1-2 Days if not improving
[2019-02-10 19:26] LABS: Absolute Neutrophil Count 2.5 X10^3/uL (2.0-7.7); Basophil# 0.01 X10^3/uL; Basophil% 0.2 % (0-1); Eosinophils% 7.4 % (0-5); Hematocrit 44.3 % (37-47); Hemoglobin 15.1 g/dl (12.0-15.0); Lymphocyte % 17.2 % (19-41); Mean Corp Hgb Conc 34.1 g/gl (32-36); Mean Corpuscular Hgb 30.4 pg (27.0-32.0); Mean Corpuscular Volume 89.3 fL (81-99); Mean Platelet Vol. 11.7 fl (6.2-12.0); Monocyte# 0.61 X10^3/uL; Neutrophil # 2.45 X10^3/uL (2.7-7.7); POSITIVE COUNT NO; POSITIVE DIFFERENTIAL NO; POSITIVE MORPHOLOGY NO; Platelet Count 165 K/mm3 (150-450); RBC Distribution Width CV 12.9 % (11.6-14.6); RBC Distribution Width SD 42.1 fl (35.1-43.9); Red Blood Count 4.96 M/mm3 (4.2-5.4); White Blood Count 4.1 K/mm3 (4.4-11.0)
[2019-02-10 19:34] LABS: Anion Gap 6 (5-15); BUN 12 mg/dL (7-18); BUN/Creat Ratio 14.3 RATIO (10-20); Calcium,Total 8.5 mg/dL (8.5-10.1); Chloride 106 mmol/L (98-107); Creatinine, Serum 0.84 mg/dL (0.55-1.02); EST Glomerular Filtration Rate 84 mL/min (>60); Est Glom Filt Rate - Afr Amer 102 mL/min (>60); Estimated Creatinine Clearance 95.23 ml/min; Glucose 91 mg/dL (74-106); Potassium 3.5 mmol/L (3.5-5.1); Sodium Level 137 mmol/L (136-145)
[2019-02-10 20:10] LABS: Internal QC Validated? YES +Cl - CLEAR BKGD; Pregnancy, Serum, hCG Quali. NEGATIVE Negative
[2019-02-10] MEDS: Dicyclomine 10 MG Capsule 20 MG PO (20:17)
[2019-02-10] MEDS: Loperamide 2 MG Capsule 4 MG PO (20:17)
[2019-02-10 21:25] VITALS: BP 109/74; PULSE 71; RESP 16; O2SAT 99
== END 2019-02-10 21:26 | disposition home or self-care (01) ==
PROVIDERS: Emergency Provider Emergency Medicine; Family Provider Family Medicine; PCP Family Medicine
DX: R10.9 Unspecified abdominal pain (principal); R11.2 Nausea with vomiting, unspecified; R19.7 Diarrhea, unspecified; E86.0 Dehydration; J01.90 Acute sinusitis, unspecified; Z79.899 Other long term (current) drug therapy; Z87.11 Personal history of peptic ulcer disease; Z90.49 Acquired absence of other specified parts of digestive tract
CPT/HCPCS: 80048; 84703; 85025; 96361; 96374; 99284; J7030; A4216; J2405

== ENCOUNTER → 2019-08-04 15:19 | Outpatient (CLI) | payer OTHER, SELFPAY ==
[2019-08-04 08:13] VITALS: BMI 24.4
[2019-08-04 17:48] LABS: Chlamydia Trachomatis by PCR Negative (Negative); Neisserai gonorrhoeae by PCR Negative (Negative)
[2019-08-04 17:49] LABS: Probe Check PASS; Sample Adequacy Control PASS; Specimen Processing Control PASS
== END ==
PROVIDERS: Family Provider Family Medicine; PCP Family Medicine; Referring Provider Nurse Practitioner Women's Health; Visit Provider Nurse Practitioner Women's Health
DX: N39.0 Urinary tract infection, site not specified (principal); R10.2 Pelvic and perineal pain
CPT/HCPCS: 87070; 87086; 87088; 87205; 87491; 87591

== ENCOUNTER → 2019-08-04 18:13 | Outpatient (CLI) | payer OTHER, SELFPAY ==
[2019-08-04 08:13] VITALS: BMI 24.4
--- NOTE | 2019-08-04 18:18 | US_ITS ---
STUDY: ULTRASOUND OF THE FEMALE PELVIS - COMPLETE REASON FOR EXAM: Female, 29 years old. Pelvic pain. TECHNIQUE: Transvaginal TECHNICAL QUALITY: Adequate. COMPARISON: None. FINDINGS: The uterus is retroverted and is in a midline position. The uterus measures 5.7 x 4.9 x 3.3 cm. The uterus has a septated appearance. The right sided endometrium measures 6 mm and the left-sided endometrium measures 6 mm. Normal uterine cervix. There is no demonstrated myometrial mass. The right ovary is visualized. The right ovary measures 3.1 x 2.3 x 1.6 cm. There is no right ovarian cyst or ovarian mass. There is no visualized right adnexal mass or complex lesion. There is normal arterial and normal venous vascularity. The left ovary is visualized. The left ovary measures 4.6 x 3.1 x 2.3 cm. There are left ovarian cysts with the largest measuring 2.0 x 1.8 cm. There is no visualized left adnexal mass or complex lesion. There is normal arterial and normal venous vascularity. There is a small amount of free fluid. US/Transvaginal Non- IMPRESSION: Septate uterus. Simple cysts in the left ovary. Normal Doppler flow demonstrated to both ovaries. Small amount of free fluid. Electronically Signed: Lambert Madrid, at 19:03 EDT Tel , Service support ,
== END ==
PROVIDERS: Family Provider Family Medicine; PCP Family Medicine; Visit Provider Nurse Practitioner Women's Health
DX: R10.2 Pelvic and perineal pain (principal)
CPT/HCPCS: 76830; 93976

== ENCOUNTER → 2019-08-06 08:48 | Outpatient (CLI) | payer OTHER, SELFPAY ==
[2019-08-04 08:13] VITALS: BMI 24.4
--- NOTE | 2019-08-06 09:04 | CT_ITS ---
STUDY: CT ABDOMEN AND PELVIS WITH CONTRAST REASON FOR EXAM: Female, 29 years old. Few week history of right lower quadrant pain which is worsening. RADIATION DOSAGE (If Supplied By Facility): CTDIvol = ( 9.79 ) mGy, DLP = ( 651.46 ) mGycm TECHNIQUE: Transaxial images were obtained from the dome of the diaphragm to the symphysis pubis with oral contrast. IV/Oral Isovue 300 100mL was administered. Sagittal and coronal images were reconstructed. Individualized dose optimization techniques were used for this CT. COMPARISON: None. FINDINGS: The visualized lung bases are unremarkable. The visualized portions of the heart are within normal limits. Normal liver. The patient is status post cholecystectomy. Normal spleen. Normal pancreas. Normal bilateral adrenal glands. Normal right kidney. Normal left kidney. Normal visualized stomach. Normal small intestine. Normal colon. The appendix is visualized and appears normal. Normal abdominal aorta. Normal inferior vena cava. Normal retroperitoneum. Normal urinary bladder. There is a 2.6 cm x 2.3 cm septated cyst in the left ovary. A dominant follicle is seen in the right ovary. Minimal free fluid is seen in the pelvis. Normal abdominal wall. Normal osseous structures. CT/Abdomen/Pelvis WITH Contrast IMPRESSION: 2.6 cm x 2.3 cm septated cyst in the left ovary. Minimal amount of free fluid in the pelvis. Electronically Signed: Dinh Stone, at 11:34 EDT , Service support ,
[2019-08-06 09:06] LABS: Erythrocyte Sedimentation Rate 5 mm/hr (0-20)
[2019-08-06 09:08] LABS: Absolute Lymphocyte Count 1.79 X10^3/uL (0.83-4.51); Absolute Neutrophil Count 2.7 X10^3/uL (2.0-7.7); Basophil# 0.06 X10^3/uL; Basophil% 1.1 % (0-1); Eosinophil# 0.28 X10^3/uL; Eosinophils% 5.1 % (0-5); Hematocrit 45.5 % (37-47); Hemoglobin 15.3 g/dL (12.0-15.0); Lymphocyte # 1.79 X10^3/ul (4.0); Lymphocyte % 32.7 % (19-41); Mean Corp Hgb Conc 33.6 g/dL (32-36); Mean Corpuscular Hgb 31.5 pg (27.0-32.0); Mean Corpuscular Volume 93.6 fL (81-99); Mean Platelet Vol. 11.6 fl (6.2-12.0); Monocyte# 0.65 X10^3/uL; Monocyte% 11.9 % (0-10); NRBC Flagged by Analyzer 0 % (0-5); Neutrophil # 2.67 X10^3/uL (2.7-7.7); Neutrophil % 48.8 % (47-70); Platelet Count 214 K/mm3 (150-450); RBC Distribution Width SD 41.8 fl (35.1-43.9); Red Blood Count 4.86 M/mm3 (4.2-5.4); White Blood Count 5.5 K/mm3 (4.4-11.0)
[2019-08-06 09:30] LABS: AST(SGOT) 14 U/L (15-37); Alanine Aminotransfer ALT/SGPT 21 U/L (13-56); Albumin, Serum 4.2 g/dL (3.2-5.0); Alkaline Phosphatase 37 U/L (45-117); Anion Gap 7 (5-15); BUN 22 mg/dL (7-18); BUN/Creat Ratio 23.3 RATIO (10-20); CRP < 2.90 mg/L (0.0-3.0); Calcium,Total 9.2 mg/dL (8.5-10.1); Chloride 108 mmol/L (98-107); Creatinine, Serum 0.95 mg/dL (0.55-1.02); EST Glomerular Filtration Rate 73 mL/min (>60); Est Glom Filt Rate - Afr Amer 89 mL/min (>60); Glucose 87 mg/dL (74-106); Potassium 3.9 mmol/L (3.5-5.1); Protein, Total 8.2 g/dL (6.4-8.2); Sodium Level 139 mmol/L (136-145)
== END ==
PROVIDERS: Family Provider Family Medicine; PCP Family Medicine; Referring Provider Internal Medicine; Visit Provider Internal Medicine
DX: R10.31 Right lower quadrant pain (principal)
CPT/HCPCS: 36415; 74177; 80053; 85025; 85652; 86140; Q9967

== ENCOUNTER → 2019-11-17 16:18 | Outpatient (CLI) | payer OTHER, SELFPAY ==
[2019-08-04 08:13] VITALS: BMI 24.4
[2019-11-17 18:05] LABS: Vitamin B12 413 pg/mL (211-911)
== END ==
PROVIDERS: PCP Family Medicine; Referring Provider Family Medicine; Visit Provider Family Medicine
DX: R20.0 Anesthesia of skin (principal)
CPT/HCPCS: 36415; 82607

== ENCOUNTER → 2020-06-01 13:55 | Outpatient (CLI) | payer OTHER, SELFPAY ==
[2020-06-01 09:46] VITALS: BMI 24.4
== END ==
PROVIDERS: PCP Family Medicine; Referring Provider Obstetrics & Gynecology; Visit Provider Obstetrics & Gynecology
DX: N76.0 Acute vaginitis (principal); R10.2 Pelvic and perineal pain
CPT/HCPCS: 87070; 87086; 87205

== ENCOUNTER → 2020-06-02 15:53 | Outpatient (CLI) | payer OTHER, SELFPAY ==
[2020-06-01 09:46] VITALS: BMI 24.4
--- NOTE | 2020-06-02 15:54 | US_ITS ---
STUDY: ULTRASOUND OF THE FEMALE PELVIS - COMPLETE REASON FOR EXAM: Female, 30 years old. RIGHT PELVIC PAIN LMP: 05/11/2020. TECHNIQUE: Transvaginal TECHNICAL QUALITY: Adequate. COMPARISON: Comparison is made with prior study dated 08/04/2019. FINDINGS: The uterus is retroverted and is in a midline position. The uterus measures 6 cm x 4.8 cm x 3.0 cm. Normal uterine cervix. The endometrium measures 1.0 mm in thickness, and is heterogeneous (striated). There is no demonstrated endometrial mass. There is no demonstrated myometrial mass. The uterus has a septated appearance. I.U.D. - The patient does not have an I.U.D. The right ovary is visualized. The right ovary measures 3.7 cm x 2.9 cm x 2.7 cm. There is no right ovarian cyst or ovarian mass. There is no visualized right adnexal mass or complex lesion. There is normal arterial and normal venous vascularity. The left ovary is visualized. The left ovary measures 2.3 cm x 1.7 cm x 1.4 cm. There is no left ovarian cyst or ovarian mass. There is no visualized left adnexal mass or complex lesion. There is normal arterial and normal venous vascularity. There is minimal fluid in the cul-de-sac. Polycystic ovary disease: No. US/Transvaginal Non- IMPRESSION: Findings suggestive of a septated uterus. Minimal free fluid in the pelvis most likely physiologic in nature. Electronically Signed: Dinh Stone, at 9:07 EDT , Service support ,
== END ==
PROVIDERS: PCP Family Medicine; Referring Provider Obstetrics & Gynecology; Visit Provider Obstetrics & Gynecology
DX: R10.2 Pelvic and perineal pain (principal)
CPT/HCPCS: 76830

== ENCOUNTER → 2020-07-13 14:46 | Outpatient (CLI) | payer OTHER, SELFPAY ==
[2020-06-01 09:46] VITALS: BMI 24.4
[2020-07-13 17:57] LABS: Absolute Lymphocyte Count 1.87 X10^3/uL (0.83-4.51); Absolute Neutrophil Count 3.9 X10^3/uL (2.0-7.7); Basophil% 0.6 % (0-1); Eosinophils% 4.4 % (0-5); Hematocrit 42.7 % (37-47); Hemoglobin 14.1 g/dL (12.0-15.0); Lymphocyte # 1.87 X10^3/ul (4.0); Lymphocyte % 27.2 % (19-41); Mean Corpuscular Hgb 32.3 pg (27.0-32.0); Mean Corpuscular Volume 97.7 fL (81-99); Mean Platelet Vol. 13.5 fl (6.2-12.0); Monocyte# 0.73 X10^3/uL; Monocyte% 10.6 % (0-10); Neutrophil # 3.91 X10^3/uL (2.7-7.7); Neutrophil % 56.9 % (47-70); Platelet Count 174 K/mm3 (150-450); RBC Distribution Width CV 12.2 % (11.6-14.6); RBC Distribution Width SD 44.5 fl (35.1-43.9); Red Blood Count 4.37 M/mm3 (4.2-5.4); White Blood Count 6.9 K/mm3 (4.4-11.0)
[2020-07-13 17:58] LABS: Basophil# 0.04 X10^3/uL; NRBC Flagged by Analyzer 0 % (0-5)
[2020-07-13 18:23] LABS: Anion Gap 5 (5-15); BUN 20 mg/dL (7-18); Calcium,Total 9.1 mg/dL (8.5-10.1); Chloride 104 mmol/L (98-107); Creatinine, Serum 0.91 mg/dL (0.55-1.02); EST Glomerular Filtration Rate 76 mL/min (>60); Est Glom Filt Rate - Afr Amer 92 mL/min (>60); Glucose 87 mg/dL (74-106); Magnesium 2.1 mg/dL (1.6-2.6); Potassium 3.7 mmol/L (3.5-5.1); Sodium Level 137 mmol/L (136-145); T4 Free Direct 1.04 ng/dL (0.76-1.46); Thyroid Stim Hormone (TSH) 0.91 uIU/mL (0.358-3.74)
== END ==
PROVIDERS: PCP Family Medicine; Visit Provider Family Medicine
DX: R00.0 Tachycardia, unspecified (principal)
CPT/HCPCS: 36415; 80048; 83735; 84439; 84443; 85025

== ENCOUNTER → 2020-09-09 07:59 | Outpatient (CLI) | payer OTHER, SELFPAY ==
[2020-08-01 14:24] VITALS: BMI 26.4
--- NOTE | 2020-09-09 08:01 | ECHOD_ITS ---
Reason For Study: TACHYCARDIA Procedure This was a 2D Doppler, Color Flow transthoracic echocardiogram. Exam performed in department. Left Ventricle Normal LV size. The estimated ejection fraction is 55 %. No evidence for diastolic dysfunction. No regional wall motion abnormalities noted. Right Ventricle Normal RV size. Normal systolic function. Atria Normal left atrium. Normal right atrium. No doppler evidence for ASD. Bubble contrast study negative for right to left interatrial shunt. Mitral Valve There is no mitral valve stenosis. No mitral valve insufficiency. Tricuspid Valve There is no tricuspid stenosis. Trivial tricuspid valve insufficiency. Unable to estimate RV systolic pressure due to insufficient tricuspid regurgitant envelope. Aortic Valve Trisinus/trileaflet aortic valve. There is no aortic stenosis. No aortic valve insufficiency. Pulmonic Valve There is no pulmonic valvular stenosis. No pulmonic valve insufficiency. Great Vessels Normal aortic root. Pericardium/Pleural No pericardial effusion. Medication 22 gauge I.V. with prn adaptor inserted into right arm. Performed a rapid injection of agitated mix of 9 cc saline and 1cc air to assess for atrial septal defect. MMode/2D Measurements & Calculations LVIDd: 5.1 cm IVSd: 0.69 cm Ao root diam: 2.9 cm LVIDs: 3.6 cm LVPWd: 0.74 cm RVDd: 3.8 cm FS: 29.8 % LAV(MOD-bp): 45.4 ml LA A4 area: 14.9 cm2 LA dimension(2D): 3.8 cm LAV(MOD-bp) Indexed: 25.0 ml/m2 LAV(MOD-sp2): 49.1 ml LAV(MOD-sp4): 39.0 ml RA A4 area: 16.6 cm2 Time Measurements MV dec time: 0.23 sec Doppler Measurements & Calculations MV E max john: 93.3 cm/sec Lat Peak E' John: 19.4 cm/sec Med Peak E' John: 13.4 cm/sec MV A max john: 31.4 cm/sec E/E' lat: 4.8 E/E' med: 7.0 MV E/A: 3.0 Ao V2 max: 129.3 cm/sec LV V1 max: 88.5 cm/sec PA V2 max: 90.3 cm/sec Ao max P.7 mmHg LV V1 max P.1 mmHg TR max john: 218.7 cm/sec TR max P.3 mmHg Interpretation Summary The estimated ejection fraction is 55 %. No evidence for diastolic dysfunction. Ordering Physician: Yue Duggan Referring Physician: LEROY ZAMORA Performed By: Navya Craig, AARTI, RVT
== END ==
PROVIDERS: PCP Family Medicine; Referring Provider Specialist; Visit Provider Specialist
DX: R00.2 Palpitations (principal)
CPT/HCPCS: 93225; 93226; 93306; A4216

== ENCOUNTER → 2020-09-23 16:08 | Outpatient (CLI) | payer OTHER, SELFPAY ==
[2020-08-01 14:24] VITALS: BMI 26.4
== END ==
PROVIDERS: PCP Family Medicine; Visit Provider Family Medicine
DX: Z20.828 Contact with and (suspected) exposure to other viral communicable diseases (principal)
CPT/HCPCS: 87635; U0003

== ENCOUNTER → 2020-12-08 09:33 | Outpatient (CLI) | payer OTHER, SELFPAY ==
[2020-11-03 12:57] VITALS: BMI 27.1
--- NOTE | 2020-12-08 09:37 | RAD_ITS ---
STUDY: X-RAY CHEST REASON FOR EXAM: Female, 30 years old. Persistent cough, neg Covid test previously TECHNIQUE: PA and lateral views of the chest. COMPARISON: Comparison is made with prior study dated 01/22/2018. FINDINGS: The lungs are clear and expanded. There is no demonstrated pleural abnormality. Normal size heart. Normal mediastinum and cecilia. Normal visualized pulmonary arteries. Normal visualized aortic arch and descending thoracic aorta. There is a minimal levoscoliosis of the thoracic spine. Normal visualized ribs, clavicles, and shoulders. There is no demonstrated abnormality of the visualized soft tissue structures of the upper abdomen. RAD/Chest PA and Lateral IMPRESSION: No acute abnormality is seen. Electronically Signed: Dinh Stone MD at 13:51 EST , Service support ,
[2020-12-08 12:14] LABS: Absolute Lymphocyte Count 1.75 X10^3/uL (0.83-4.51); Absolute Neutrophil Count 2.1 X10^3/uL (2.0-7.7); Basophil# 0.06 X10^3/uL; Basophil% 1.2 % (0-1); Eosinophil# 0.46 X10^3/uL; Eosinophils% 9.3 % (0-5); Hematocrit 45.7 % (37-47); Hemoglobin 15.3 g/dL (12.0-15.0); Lymphocyte # 1.75 X10^3/ul (4.0); Lymphocyte % 35.4 % (19-41); Mean Corp Hgb Conc 33.5 g/dL (32-36); Mean Corpuscular Hgb 31.7 pg (27.0-32.0); Mean Corpuscular Volume 94.8 fL (81-99); Mean Platelet Vol. 12.9 fl (6.2-12.0); Monocyte# 0.52 X10^3/uL; Monocyte% 10.5 % (0-10); NRBC Flagged by Analyzer 0 % (0-5); Neutrophil # 2.13 X10^3/uL (2.7-7.7); Neutrophil % 43.2 % (47-70); Platelet Count 216 K/mm3 (150-450); RBC Distribution Width CV 11.8 % (11.6-14.6); Red Blood Count 4.82 M/mm3 (4.2-5.4); White Blood Count 4.9 K/mm3 (4.4-11.0)
[2020-12-08 12:23] LABS: D-Dimer Quantitative (DVT/PE) 0.33 FEU/ug/m (0.27-0.49)
[2020-12-08 12:33] LABS: AST(SGOT) 17 U/L (15-37); Alanine Aminotransfer ALT/SGPT 26 U/L (13-56); Albumin, Serum 4.2 g/dL (3.2-5.0); Alkaline Phosphatase 40 U/L (45-117); Anion Gap 6 (5-15); BUN 20 mg/dL (7-18); BUN/Creat Ratio 18.9 RATIO (10-20); CRP 2.94 mg/L (0.0-3.0); Calcium,Total 9.5 mg/dL (8.5-10.1); Chloride 106 mmol/L (98-107); Creatinine, Serum 1.06 mg/dL (0.55-1.02); EST Glomerular Filtration Rate 64 mL/min (>60); Est Glom Filt Rate - Afr Amer 77 mL/min (>60); Globulin 4.1 g/dL (2.2-4.2); Glucose 68 mg/dL (74-106); Potassium 3.9 mmol/L (3.5-5.1); Protein, Total 8.3 g/dL (6.4-8.2); Sodium Level 139 mmol/L (136-145)
[2020-12-14 13:48] LABS: SARS-COV-2 TOTAL ABS Nonreactive (Nonreactive)
== END ==
PROVIDERS: PCP Family Medicine; Referring Provider Family Medicine; Visit Provider Family Medicine
DX: R05 Cough (principal)
CPT/HCPCS: 36415; 71046; 80053; 85025; 85379; 86140; 86769

== ENCOUNTER → 2020-12-21 | Outpatient (CLI) | payer OTHER, SELFPAY ==
[2020-12-21 09:39] VITALS: BMI 25.7
[2020-12-24 03:07] LABS: Chlamydia By Nucleic Acid AMP Negative (Negative)
[2020-12-24 13:08] LABS: Gonococcus By Nucleic Acid AMP Negative (Negative)
== END | disposition home or self-care (01) ==
LOC: LABSPEC 13:01
PROVIDERS: PCP Family Medicine; Referring Provider Nurse Practitioner Women's Health; Visit Provider Nurse Practitioner Women's Health
DX: Z11.3 Encounter for screening for infections with a predominantly sexual mode of transmission (principal)
CPT/HCPCS: 87491; 87591

== ENCOUNTER → 2021-05-05 06:30 | Outpatient (CLI) | payer OTHER, SELFPAY ==
[2021-02-15 08:08] VITALS: BMI 25.7
--- NOTE | 2021-05-05 06:36 | MRI_ITS ---
STUDY: MRI RIGHT KNEE REASON FOR EXAM: Right knee pain, decreased range of motion and swelling, symptoms for 12 weeks. TECHNIQUE: Standardized fat and water weighted pulse sequences were obtained in all 3 orthogonal planes. COMPARISON: None. FINDINGS: Normal medial meniscus. Normal hyaline cartilage of the medial femorotibial compartment. Normal medial femoral condyle and tibial plateau. Normal medial collateral ligamentous complex (MCL). Normal distal semimembranosus, gracilis and semitendinosus tendons. Normal lateral meniscus. Normal hyaline cartilage of the lateral femorotibial compartment. Normal lateral femoral condyle and tibial plateau. Normal proximal tibiofibular articulation. Normal lateral collateral (fibular) ligament. Normal popliteus tendon. Normal biceps femoris tendon. Normal anterior cruciate ligament (ACL). Normal posterior cruciate ligament (PCL). There is mild lateral tilt of the patella without patellar subluxation (T2 axial image 9). The TT-TG distance is 10 mm. Normal hyaline cartilage of the patellofemoral compartment. Normal medial and lateral patellar retinaculum. Normal visualized quadriceps tendon. Normal patellar tendon. There is mild edema in Hoffa''s fat pad inferior to the lateral aspect of the patellofemoral articulation (T2 sagittal image 9). There is no joint effusion. There is a thin medial patellar plica. The soft tissues are unremarkable. The otherwise visualized osseous structures are unremarkable. MRI/Lower Ext Joint Only (Routine) IMPRESSION: Mild lateral tilt of the patella and mild edema in Hoffa''s fat pad inferior to the lateral aspect of the patellofemoral articulation, suggestive of patellofemoral friction syndrome. No demonstrated meniscal or ligamentous injury. Electronically Signed: Gregorio Nino MD at 8:27 EDT Tel , Service support ,
== END ==
PROVIDERS: PCP Family Medicine; Referring Provider Family Medicine; Visit Provider Family Medicine
DX: M25.561 Pain in right knee (principal); M25.461 Effusion, right knee
CPT/HCPCS: 73721

== ENCOUNTER 2021-05-29 16:30 | Outpatient (RCR) | payer OTHER, SELFPAY ==
[2021-02-15 08:08] VITALS: BMI 25.7
--- NOTE | 2021-05-10 14:33 | HP.PTEVAL ---
Patient's Visit Information MICHELLE QUINTEROS is a 31 year old F referred to Physical Therapy by Dr. Torin Zayas DO with a diagnosis of PF DISORDER R KNEE. 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 ABOUT 80 STUDENTS. MOSTLY DESK TYPE WORK. RARELY PHYSICAL. CROSS FIT. RUNNING. Disability: NO. Present symptoms: RIGHT KNEE FRONT AND BACK. Present since: STARTED ABOUT 3 MONTHS AGO. Pain Scale: WORST 7/10, LEAST 2/10. Currently: 5/10. Commenced as a result of: NO APPARENT REASON. Symptoms at onset: GOT HARDER TO DO SQUATS AT THE GYM AND NOTICED A CLICKING SOUND IN THE KNEE. Worse: SITTING, ANY KIND OF PHYSICAL ACTIVITY, WALKING, STAIRS, WORKING OUT. STEPS. Better: ICING. Disturbed sleep: NO. Previous history/Previous treatment: UNREMARKABLE. Treatment this episode: STEROID INJECTION BY DR. ZAYAS ABOUT MONTH AGO THAT HELPED FOR ABOUT 2 WEEKS. Coughing/sneezing/straining: NO. Gait: STARTS NORMAL THEN SLOWS ME DOWN AND START LIMPING. Accidents: NO. Unexplained weight loss: NO. Imaging: MRI SATURDAY SHOWING R KNEE CAP IS MOVING OUT OF PLACE AND RUBBING. [facility] EMR: MPRESSION: Mild lateral tilt of the patella and mild edema in Hoffa''s fat pad. inferior to the lateral aspect of the patellofemoral articulation,. suggestive of patellofemoral friction syndrome. . No demonstrated meniscal or ligamentous injury. . PMH: UNREMARKABLE. PLOF (Prior Level of Function): UNLIMITED. - Objective THIS PATIENT AMBULATES INDEP'LY INTO PT WITHOUT ANY ASSISTIVE DEVICES OR GROSS DEVIATIONS NOTED. Motor deficit: XIOMY LE'S 5/5 WITH MMT'ING EXCEPT LEFT KNEE FLEX/ET PAIN LIMITED AND GRADED 4/5. Sensory deficit: NO. ROM deficit: RIGHT KNEE FLEXION LIMITATION BY APPROX 20 DEG COMPARED TO LEFT WHEN PRONE. Core strength: GOOD. Palpation: TENDERNESS AND MILD EDEMA OF RIGHT KNEE COMPARED TO LEFT ESPECIALLY IN THE REGION OF THE PATELLAR TENDON. TREATMENT: US AT 1.3 W/CM2, 50% X 8 MIN TO RIGHT KNEE IN SITTING. HEP INST: HSS, CALF STRETCHING AND 3 WAY SLR'S INTO FLEX, ABD AND EXT. ATTEMPTED QUAD STRETCHING BUT INCREASED PAIN AND WILL ATTEMPT A DIFFERENT APPROACH TO QUAD STRETCHING WITH FOLLOW UP. - Goals Goal 1:: DECREASE C/O RIGHT KNEE PAIN Goal Time Frame: 4-6 Weeks Goal 2:: INCREASE FUNCTIONAL STRENGTH OF RIGHT KNEE WITHOUT PAIN TO 5/5 TO ALLOW FOR RETURN TO PRIOR LEVEL OF FUNCTION. Goal Time Frame: 4-6 Weeks Goal 3:: INCREASE FUNCTIONAL PAINFREE ROM TO FULL OF R KNEE TO ALLOW FOR RETURN TO PRIOR LEVEL OF FUNCTION. Goal Time Frame: 4-6 Weeks Goal 4:: PATIENT WILL BE INDEP WITH A HEP. Goal Time Frame: 4-6 Weeks - Anticipated Interventions Patient/Client Instruction: Educate patient on: Condition, Plan of Care, Risk Factors For the Purpose of:: To improve self management Therapeutic Exercise to Include: Strength training, Flexibilty training, Neuromotor development, Passive ROM, Active ROM For the Purpose of:: To decrease pain, To increase ROM, To improve muscle performance and motor function, To increase tolerance to activity/condition/position, To improve ability of physical actions for home/community/work/leisure TENS: Yes IF ES: Yes Cryotherapy (ice pack, ice massage): Yes Thermo therapy (hot pack): Yes Ultrasound (thermal/non thermal): Yes For the Purpose of:: To decrease pain, To decrease swelling/inflammation, To improve nutrient delivery to tissue Thank you for the opportunity to evaluate your patient. For Medicare and Medicare HMO plans, please review the plan of care and approve it. It will need to be FAXED BACK to us at [phone] for Medicare purposes. For Medicare only, by signing this I certify the plan of care. Please let me know if there are questions or concerns regarding this plan of care. Physician Signature: Date:
--- NOTE | 2021-05-29 17:34 | HP.PTREVAL_ITS ---
Dr. Torin Zayas, DO, It has been my pleasure to treat MICHELLE QUINTEROS over the last 9 visits for PF DISORDER R KNEE. Please see the progress note below for an update on the physical therapy plan of care! Subjective: PATIENT REPORTS HER KNEE IS NO BETTER AND NO WORSE SINCE STARTING PT. STATES THAT WHEN SHE TRIES TO PUSH THROUGH THE PAIN HER FUNCTION GETS WORSE AT LEAST TEMPORARILY. PATIENT ALMOST IN TEARS DUE TO FRUSTRATION WITH ON-GOING PAIN IN HER KNEE. Objective/Function: UPON EXAM TODAY THERE ARE NO SIGNIFICANT CHANGES SINCE INITAL EVAL. PATIENT IS FRUSTRATED WITH LACK OF PROGRESS. PHYSICIAN RE- ASSESSMENT RECOMMENDED AT THIS TIME AND PATIENT IS AGREEABLE. Plan Plan: HOLD PT PENDING PHYSICIAN RE-ASSESSMENT. Balance/Gait/Functional tests - Balance/Special Test Scores Lower Extremity Functional Score: 46 Goals Goal 1:: DECREASE C/O RIGHT KNEE PAIN Goal Time Frame: 4-6 Weeks Goal Progress: Not Progressing Goal 2:: INCREASE FUNCTIONAL STRENGTH OF RIGHT KNEE WITHOUT PAIN TO 5/5 TO ALLOW FOR RETURN TO PRIOR LEVEL OF FUNCTION. Goal Time Frame: 4-6 Weeks Goal Progress: Not Progressing Goal 3:: INCREASE FUNCTIONAL PAINFREE ROM TO FULL OF R KNEE TO ALLOW FOR RETURN TO PRIOR LEVEL OF FUNCTION. Goal Time Frame: 4-6 Weeks Goal Progress: Not Progressing Goal 4:: PATIENT WILL BE INDEP WITH A HEP. Goal Time Frame: 4-6 Weeks Goal Progress: Not Progressing Anticipated Interventions Patient/Client Instruction: Educate patient on: Condition, Plan of Care, Risk Factors For the Purpose of:: To improve self management Therapeutic Exercise to Include: Strength training, Flexibilty training, Neuromotor development, Passive ROM, Active ROM For the Purpose of:: To decrease pain, To increase ROM, To improve muscle performance and motor function, To increase tolerance to activity/con dition/position, To improve ability of physical actions for home/community/work/leisure TENS: Yes IF ES: Yes Cryotherapy (ice pack, ice massage): Yes Thermo therapy (hot pack): Yes Ultrasound (thermal/non thermal): Yes For the Purpose of:: To decrease pain, To decrease swelling/inflammation, To improve nutrient delivery to tissue Please do not hesitate to contact me at [phone] by phone or if you have questions or concerns regarding this new plan of care! Sincerely, Danyell Mishra, PT, Cert MDT
--- NOTE | 2021-08-29 13:24 | HP.PT.NRP ---
MICHELLE QUINTEROS was seen in my office for initial evaluation on 05/10/21. The following Plan of Care was established for this patient: Initial Frequency: 2-3x /Week Initial Duration: 4-6 Weeks Patient/Client Instruction: Educate patient on: Condition, Plan of Care, Risk Factors For the Purpose of:: To improve self management Therapeutic Exercise to Include: Strength training, Flexibilty training, Neuromotor development, Passive ROM, Active ROM For the Purpose of:: To decrease pain, To increase ROM, To improve muscle performance and motor function, To increase tolerance to activity/condition/position, To improve ability of physical actions for home/community/work/leisure TENS: Yes IF ES: Yes Cryotherapy (ice pack, ice massage): Yes Thermo therapy (hot pack): Yes Ultrasound (thermal/non thermal): Yes For the Purpose of:: To decrease pain, To decrease swelling/inflammation, To improve nutrient delivery to tissue This patient was last seen in our office 05/29/21. Pertinent comments regarding their Physical therapy will appear below: This patient has not returned to Physical Therapy and is appropriate to return to MD for further follow-up as needed. At this point I will be discontinuing this patient from physical therapy. I would be happy to see this patient again in the future if found appropriate by the physician. Thank you! Danyell Mishra, PT, Cert MDT Balance/Gait/Functional tests - Balance/Special Test Scores Lower Extremity Functional Score: 46
== END 2021-05-29 19:00 | disposition home or self-care (01) ==
LOC: PT 16:30
PROVIDERS: PCP Family Medicine; Referring Provider Family Medicine; Visit Provider Family Medicine
DX: M22.2X1 Patellofemoral disorders, right knee (principal)
CPT/HCPCS: 97014; 97035; 97110; 97162; 97164; 97530; G0283

== ENCOUNTER → 2021-06-16 | Outpatient (CLI) | payer OTHER, SELFPAY | END | disposition home or self-care (01) | PROVIDERS: PCP Family Medicine; Visit Provider Family Medicine | DX: Z20.822 Contact with and (suspected) exposure to COVID-19 (principal) | CPT/HCPCS: 87635; U0005; U0003 ==

== ENCOUNTER → 2021-10-03 | Outpatient (CLI) | payer OTHER, SELFPAY | END | disposition home or self-care (01) | LOC: LABSPEC 10-04 08:52 | PROVIDERS: PCP Family Medicine; Visit Provider Family Medicine | DX: J02.9 Acute pharyngitis, unspecified (principal); R09.81 Nasal congestion | CPT/HCPCS: 87633 ==

== ENCOUNTER 2022-07-18 17:00 | Outpatient (RCR) | payer OTHER, SELFPAY ==
--- NOTE | 2022-05-22 14:14 | HP.PTEVAL_ITS ---
Patient's Visit Information MICHELLE QUINTEROS is a 32 year old F referred to Physical Therapy by Dr. 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 Date of Evaluation: 05/22/22 Physical Therapist: JUSTINO Mason - Visit Plan Frequency: 2-3x /Week Duration: 6 Weeks Plan: 2-3X/ week for 6 weeks for decrease inflammation, AROM, gait training, functional strength, functional transfers with HEP and modalities as needed. HEP: SLR, heel slides (sitting in chair, supine and seated long sitting with a strap), and QS - Subjective Pt was running a lot during COVID and cross fit and her knee started to really b other her. She had trouble with daily things. MRI showed a lot of scar tissue and she removed her Plica band as well. Pt reports that she had surgery on May 01. She was told not to be stupid if it hurts. She is supposed to be careful working out right now. She goes back to the Dr at the end of May. She is not back to doing much except walk everyday. By the time time she does a mile w alk she has some increase in pain. She is not icing as much as she should be. She is sleeping at night. Stairs: It is a challenge. Going up she is really stiff and going down she has to go down with her R first and still painful. - Pain R knee pain Pain Intensity (Out of 10): 2 Pain Intensity Range: 8 Comment: with activity - Objective Gait: Walks with decrease stance time on the R LE. Pt walks on her heels and toes without issue. Walking BW is slow. LE MMT: Did not test the R knee due to increase pain but L knee MMT flex and ext 4/5. R knee AROM: -1 degree from full extension and 101 degrees knee flexion. Pt is able to do a SLR on the R and S/L hip abd on the R X 10. SLB: 30 seconds on the R with straight knee. Stairs: up stairs recip with no hand rails with decrease stance time on the R and down the stairs recip with 1 hand rail with minimal weight on the R side as it increases her anterior knee pain. This was after 5 min on the Nu-step to increase circulation and increase ROM. Increase pain with QS and Heel slides. - Balance/Special Test Scores Lower Extremity Functional Score: 33 - Goals Goal 1:: I HEP Goal Time Frame: 6-8 Weeks Goal 2:: Increase R knee AROM 0-128 degrees knee flexion Goal Time Frame: 6-8 Weeks Goal 3:: Be able to walk with no antalgic gait Goal Time Frame: 6-8 Weeks Goal 4:: Be able to go up and down the steps recip without a rail with fluid motion Goal Time Frame: 6-8 Weeks - Rehabilitation Potential Rehabilitation Potential: Good - Anticipated Interventions Patient/Client Instruction: Educate patient on: Condition, Plan of Care For the Purpose of:: To decrease pain, To increase ROM, To improve nutrient delivery to tissue, To improve muscle performance and motor function, To improve ability to perform ADL's, To increase tolerance to activity/condition/position, To improve performance and independence with ADL's, To decrease level of supervi ines to perform tasks, To improve ability of physical actions for home/community/work/leisure, To improve gait and locomotor functions, To improve health of tissue, To decrease soft tissue restriction, To increase flexibility/ROM, To improve balance, To improve safety with gait Therapeutic Exercise to Include: Strength training, Endurance training, Balance training, Flexibilty training, Gait and locomotor training, Neuromotor development, Passive ROM, Active ROM For the Purpose of:: To decrease pain, To decrease swelling/inflammation, To increase ROM, To improve nutrient delivery to tissue, To increase oxygenation perfusion, To improve muscle performance and motor function, To improve ability to perform ADL's, To increase tolerance to activity/condition/position, To improve performance and independence with ADL's, To decrease level of supervision to perform tasks, To improve ability of physical actions for home/community/work/leisure, To improve gait and locomotor functions, To improve health of tissue, To decrease soft tissue restriction, To increase flexibility/ROM, To improve endurance Functional Training to Include: Gait training For the Purpose of:: To improve gait and locomotor functions Manual Therapy Techniques to Include: Soft tissue mobilization For the Purpose of:: To decrease pain, To decrease swelling/inflammation, To increase ROM, To improve nutrient delivery to tissue IF ES: Yes Cryotherapy (ice pack, ice massage): Yes For the Purpose of:: To decrease pain, To decrease swelling/inflammation, To increase ROM, To improve nutrient delivery to tissue Thank you for the opportunity to evaluate your patient. For Medicare and Medicare HMO plans, please review the plan of care and approve it. It will need to be FAXED BACK to us at [phone] for Medicare purposes. For Medicare only, by signing this I certify the plan of care. Please let me know if there are questions or concerns regarding this plan of c are. Physician Signature: Date:
--- NOTE | 2022-06-20 18:52 | HP.PTREVAL ---
Dr. 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 Please see the progress note below for an update on the physical therapy plan of care! Subjective: She still has trouble going down the stairs. She can do everything but has pain. She sees Dr Mcmullen on the . Pain is not consistant. Today truthfully she feels like she is making some progress. Objective/Function: -2 degrees to 115 degrees. gait: Walks with decrease stance time on the R LE and decrease stride length. Stairs: has trouble descending stairs and eccentric control...still weak Plan Plan: Suggest bike with no resistance 5-10 min everyday to help with swelling and ice after Balance/Gait/Functional tests - Balance/Special Test Scores Lower Extremity Functional Score: 42 Goals Goal 1:: I HEP Goal Time Frame: 6-8 Weeks Goal 2:: Increase R knee AROM 0-128 degrees knee flexion Goal Time Frame: 6-8 Weeks Goal 3:: Be able to walk with no antalgic gait Goal Time Frame: 6-8 Weeks Goal 4:: Be able to go up and down the steps recip without a rail with fluid motion Goal Time Frame: 6-8 Weeks Anticipated Interventions Patient/Client Instruction: Educate patient on: Condition, Plan of Care For the Purpose of:: To decrease pain, To increase ROM, To improve nutrient delivery to tissue, To improve muscle performance and motor function, To improve ability to perform ADL's, To increase tolerance to activity/condition/position, To improve performance and independence with ADL's, To decrease level of supervision to perform tasks, To improve ability of physical actions for home/community/work/leisure, To improve gait and locomotor functions, To improve health of tissue, To decrease soft tissue restriction, To increase flexibility/ROM, To improve balance, To improve safety with gait Therapeutic Exercise to Include: Strength training, Endurance training, Balance training, Flexibilty training, Gait and locomotor training, Neuromotor development, Passive ROM, Active ROM For the Purpose of:: To decrease pain, To decrease swelling/inflammation, To increase ROM, To improve nutrient delivery to tissue, To increase oxygenation perfusion, To improve muscle performance and motor function, To improve ability to perform ADL's, To increase tolerance to activity/condition/position, To improve performance and independence with ADL's, To decrease level of supervision to perform tasks, To improve ability of physical actions for home/community/work/leisure, To improve gait and locomotor functions, To improve health of tissue, To decrease soft tissue restriction, To increase flexibility/ROM, To improve endurance Functional Training to Include: Gait training For the Purpose of:: To improve gait and locomotor functions Manual Therapy Techniques to Include: Soft tissue mobilization For the Purpose of:: To decrease pain, To decrease swelling/inflammation, To increase ROM, To improve nutrient delivery to tissue IF ES: Yes Cryotherapy (ice pack, ice massage): Yes For the Purpose of:: To decrease pain, To decrease swelling/inflammation, To increase ROM, To improve nutrient delivery to tissue Please do not hesitate to contact me at [phone] by phone or if you have questions or concerns regarding this new plan of care! Sincerely, Micaela Bella MPT
--- NOTE | 2022-07-18 17:30 | HP.PTREVAL_ITS ---
Dr. 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 Please see the progress note below for an update on the physical therapy plan of care! Subjective: Pt reports that she is making progress. Pt wants to continue to do somethings at home. Objective/Function: R knee AROM: 0-130 degrees. stairs: Normal up and down recip with no handrails Plan Plan: Hold chart X 2 weeks incase she feels she needs additional PT. Pt wishes to continue on her own for the next few weeks before seeing Dr. He bike with no resistance 5-10 min everyday to help with swelling and ice after. Discussed trying new exercises but modify to avoid pain and progress them as able Balance/Gait/Functional tests - Balance/Special Test Scores Lower Extremity Functional Score: 57 Goals Goal 1:: I HEP Goal Time Frame: 6-8 Weeks Goal Progress: Goal Met Goal 2:: Increase R knee AROM 0-128 degrees knee flexion Goal Time Frame: 6-8 Weeks Goal Progress: Goal Met Goal 3:: Be able to walk with no antalgic gait Goal Time Frame: 6-8 Weeks Goal Progress: Goal Met Goal 4:: Be able to go up and down the steps recip without a rail with fluid motion Goal Time Frame: 6-8 Weeks Goal Progress: Goal Met Anticipated Interventions Patient/Client Instruction: Educate patient on: Condition, Plan of Care For the Purpose of:: To decrease pain, To increase ROM, To improve nutrient delivery to tissue, To improve muscle performance and motor function, To improve ability to perform ADL's, To increase tolerance to activity/condition/position, To improve performance and independence with ADL's, To decrease level of supervision to perform tasks, To improve ability of physical actions for home/community/work/leisure, To improve gait and locomotor functions, To improve health of tissue, To decrease soft tissue restriction, To increase flexibility/ROM, To improve balance, To improve safety with gait Therapeutic Exercise to Include: Strength training, Endurance training, Balance training, Flexibilty training, Gait and locomotor training, Neuromotor development, Passive ROM, Active ROM For the Purpose of:: To decrease pain, To decrease swelling/inflammation, To increase ROM, To improve nutrient delivery to tissue, To increase oxygenation perfusion, To improve muscle performance and motor function, To improve ability to perform ADL's, To increase tolerance to activity/condition/position, To improve performance and independence with ADL's, To decrease level of supervision to perform tasks, To improve ability of physical actions for ho me/community/work/leisure, To improve gait and locomotor functions, To improve health of tissue, To decrease soft tissue restriction, To increase flexibility/ROM, To improve endurance Functional Training to Include: Gait training For the Purpose of:: To improve gait and locomotor functions Manual Therapy Techniques to Include: Soft tissue mobilization For the Purpose of:: To decrease pain, To decrease swelling/inflammation, To increase ROM, To improve nutrient delivery to tissue IF ES: Yes Cryotherapy (ice pack, ice massage): Yes For the Purpose of:: To decrease pain, To decrease swelling/inflammation, To increase ROM, To improve nutrient delivery to tissue Please do not hesitate to contact me at [phone] by phone or if you have questions or concerns regarding this new plan of care! Sincerely, Micaela Bella MPT
== END 2022-07-18 19:00 | disposition home or self-care (01) ==
LOC: PT 17:00
PROVIDERS: PCP Family Medicine; Referring Provider Orthopaedic Surgery; Visit Provider Orthopaedic Surgery
DX: E88.89 Other specified metabolic disorders (principal)
CPT/HCPCS: 97014; 97016; 97110; 97161; 97530; G0283

== ENCOUNTER → 2022-11-16 | Outpatient (CLI) | payer OTHER, SELFPAY ==
[2022-11-16 15:22] LABS: Absolute Lymphocyte Count 1.89 X10^3/uL (0.83-4.51); Absolute Neutrophil Count 4.3 X10^3/uL (2.0-7.7); Basophil# 0.06 X10^3/uL; Basophil% 0.8 % (0-1); Eosinophil# 0.38 X10^3/uL; Eosinophils% 5.1 % (0-5); Hematocrit 46.4 % (37-47); Hemoglobin 15.1 g/dL (12.0-15.0); Lymphocyte # 1.89 X10^3/ul (0.83-4.51); Lymphocyte % 25.5 % (19-41); Mean Corp Hgb Conc 32.5 g/dL (32-36); Mean Corpuscular Hgb 30.9 pg (27.0-32.0); Mean Corpuscular Volume 94.9 fL (81-99); Monocyte# 0.72 X10^3/uL; Monocyte% 9.7 % (0-10); NRBC Flagged by Analyzer 0 % (0-5); Neutrophil # 4.32 X10^3/uL (2.7-7.7); Neutrophil % 58.5 % (47-70); Platelet Count 204 K/mm3 (150-450); RBC Distribution Width SD 41.7 fl (35.1-43.9); Red Blood Count 4.89 M/mm3 (4.2-5.4); White Blood Count 7.4 K/mm3 (4.4-11.0)
[2022-11-16 15:50] LABS: Vitamin B12 507 pg/mL (211-911)
[2022-11-16 15:54] LABS: Ferritin 18 ng/mL (8-252); Iron 153 ug/dL (50-170); T4 Free Direct 0.98 ng/dL (0.76-1.46); Thyroid Stim Hormone (TSH) 1.18 uIU/mL (0.358-3.74)
== END | disposition home or self-care (01) ==
LOC: BFHLAB 14:04
PROVIDERS: PCP Family Medicine; Visit Provider Family Medicine
DX: E61.1 Iron deficiency (principal); L65.9 Nonscarring hair loss, unspecified; Z51.81 Encounter for therapeutic drug level monitoring
CPT/HCPCS: 36415; 82607; 82728; 83540; 84439; 84443; 85025

== ENCOUNTER → 2023-12-13 | Outpatient (CLI) | payer OTHER, SELFPAY ==
[2023-12-17 07:08] LABS: Chlamydia By Nucleic Acid AMP Negative (Negative); Gonococcus By Nucleic Acid AMP Negative (Negative)
== END | disposition home or self-care (01) ==
LOC: LABSPEC 16:28
PROVIDERS: PCP Family Medicine; Referring Provider Advanced Practice Midwife; Visit Provider Advanced Practice Midwife
DX: Z34.90 Encounter for supervision of normal pregnancy, unspecified, unspecified trimester (principal)
CPT/HCPCS: 87086; 87491; 87591

== ENCOUNTER → 2023-12-23 | Outpatient (CLI) | payer OTHER, SELFPAY ==
[2023-12-23 08:27] LABS: Absolute Neutrophil Count 3.8 X10^3/uL (2.0-7.7); Basophil# 0.04 X10^3/uL; Basophil% 0.7 % (0-1); Eosinophil# 0.22 X10^3/uL; Eosinophils% 3.6 % (0-5); Hematocrit 40.8 % (37-47); Hemoglobin 14.3 g/dL (12.0-15.0); Lymphocyte % 24.8 % (19-41); Mean Corpuscular Hgb 32.4 pg (27.0-32.0); Mean Corpuscular Volume 92.3 fL (81-99); Monocyte# 0.51 X10^3/uL; Monocyte% 8.4 % (0-10); NRBC Flagged by Analyzer 0 % (0-5); Neutrophil # 3.75 X10^3/uL (2.7-7.7); Neutrophil % 62.2 % (47-70); Platelet Count 165 K/mm3 (150-450); RBC Distribution Width CV 12.3 % (11.6-14.6); RBC Distribution Width SD 41.7 fl (35.1-43.9); Red Blood Count 4.42 M/mm3 (4.2-5.4)
--- OUTSIDE RECORDS SUMMARY | 2023-12-23 08:37 | XMS RPT_ITS | CCD ---
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 Cipro] Allergy (Verified 05/29/18 14:39) Hives levofloxacin [From Levaquin] Allergy (Verified 05/29/18 14:39) Hives prednisone Allergy (Verified 05/29/18 14:39) Hives Medications Montelukast [Singulair] 10 mg PO DAILY 04/05/17 [History Confirmed 05/29/18] Sucralfate 1 gm PO 4X/DAY 30 Days #1200 mls 01/25/18 [Rx Confirmed 05/29/18] Triamcinolone Acetonide [Kenalog-40] 40 mg IM PRN PRN 03/11/18 [History Confirmed 05/29/18] omeprazole 20 mg capsule,delayed release 20 mg PO BID 30 Days #60 cap 05/02/18 [Rx Confirmed 05/29/18] PFSH Medical History GI bleed (Acute) Anemia (Acute) Gastric ulcer (Acute) Abdominal pain (Acute) Cough in adult (Acute) Sinusitis, acute (Acute) Surgical History History of cholecystectomy (Acute) History of esophagogastroduodenoscopy (EGD) (Acute 01/25/18) Social History Smoking Status: Never smoker alcohol intake: current alcohol intake frequency: a few times a week substance use type: does not use HPI HPI Chief Complaint: R shoulder pain Details: FABI QUINTEROS, is a 28 F who presents to the office today for initial evaluation right anterior shoulder pain after performing weightlifting exercises at a local gym yesterday. Patient notes pulling weights towards her chest wall with her right hand in the process noted a burning sensation to the anterior aspect of her right shoulder. She notes localized moderate aching tenderness is aggravated to touch and with range of motion right shoulder alleviated with lying her arm rest to her side. She notes no prior history of injuries or surgeries to her right shoulder. She notes no limitations in range of motion, though crossing her right arm over her anterior chest wall tends to exacerbate symptoms. She notes no complaints of chest pain/shortness of breath/dyspnea on exertion/PND/ orthopnea/syncope or near syncope. [id number] Tylenol assist minimally with discomfort. She notes no other associated symptoms no other alleviating or aggravating factors. ROS Const Constitutional: Positive for other (ROS negative 10 other than that noted above) Exam Const General: cooperative, healthy appearing, no acute distress, comfortable Nutritional Appearance: average body habitus Orientation: alert, awake, oriented x3 HENMT Head: normal to inspection Ears: hearing grossly normal bilaterally, external ears normal Nose: external nose normal Eyes General: appearance normal, both eyes and all related structures Neck Neck: normal visual inspection, full ROM Lymphatic: no lymphadenopathy noted Chest Chest palpation AND inspection: normal inspection of the chest Resp Effort AND Inspection: normal respiratory effort, able to speak in complete sentences, symmetric chest movement Cardio Rate: regular rate Pulses: radial pulses present Skin General: no rashes or lesions noted Neuro General: alert, awake, oriented x3, gait normal Cognition: normal cognition Speech: speech normal Gait: normal gait Motor: muscle tone normal throughout Sensory Exam: no sensory deficits noted Extrem General: normal to inspection, full ROM (w/ palpation R ant. shoulder, + apprehension, neg Apley and empty can), normal capillary refill, no joint enlargement Psych Appearance: grossly normal Mental Status: mental status grossly normal Mood: congruent mood Affect: normal affect Speech and Movement: speech and movement normal Attitude: cooperative Thought Process: normal Thought Content: normal Judgment: judgment good Assessment AND Plan Problems 1. Right shoulder strain S46.911A Plan -likely rotator cuff strain Rest, ice, passive range of motion exercises only, Tylenol as needed for symptomatic relief. Patient unable to take NSAIDs due to history of gastric ulcers and unable to take prednisone due to history of anaphylaxis. Follow-up with PCP or orthopedics in 5-7 days should symptoms not improve, sooner should symptoms worsen or any other concerns develop. Patient states acknowledging understanding all the above. This note was generated with [employer] dictation software. It may contain incorrect words, spelling, and punctuation that were not noted in checking the note before signing. Coding Level of Care Code Off vis,est,level 3 Diagnoses Right shoulder strain S46.911A 05/29/18 1505 <Electronically signed by Lambert GIBBS> Date _ Lambert March Signature: Date _ (if applicable) CC: Jana Scott Start: 05-03-2018 End: 05-03-2018 Surgery Visit Report Comments: See Note; NOTES: [facility] [address] [place] [address] OFFICE VISIT Date of Service: 05/02/18 MR#: [id number] Acct: [id number] Name: FABI QUINTEROS Rep #: [id number] : 1990 Provider: Mitchell Montalvo MD Age/Sex: 28/F Location: [facility] Status: Signed Intake Intake Visit Reasons: FU EGD 03/12 Chief Complaint: f/u endo Manager Solution Required: No Is patient in pain?: No Allergies ciprofloxacin [From Cipro] Allergy (Verified 05/02/18 14:40) Hives ciprofloxacin HCl [From Cipro] Allergy (Verified 05/02/18 14:40) Hives levofloxacin [From Levaquin] Allergy (Verified 05/02/18 14:40) Hives prednisone Allergy (Verified 05/02/18 14:40) Hives Medications Montelukast [Singulair] 10 mg PO DAILY 04/05/17 [History Confirmed 05/02/18] Sucralfate 1 gm PO 4X/DAY 30 Days #1200 mls 01/25/18 [Rx Confirmed 05/02/18] Triamcinolone Acetonide [Kenalog-40] 40 mg IM PRN PRN 03/11/18 [History Confirmed 05/02/18] omeprazole 20 mg capsule,delayed release 20 mg PO BID 30 Days #60 cap 05/02/18 [Rx Confirmed 05/02/18] PFSH Medical History GI bleed (Acute) Anemia (Acute) Gastric ulcer (Acute) Abdominal pain (Acute) Cough in adult (Acute) Sinusitis, acute (Acute) Surgical History History of cholecystectomy (Acute) History of esophagogastroduodenoscopy (EGD) (Acute 01/25/18) Social History Smoking Status: Never smoker alcohol intake: current alcohol intake frequency: a few times a week substance use type: does not use HPI HPI HPI: FABI QUINTEROS, is a 28 F who presents to the office today for for follow-up from an esophagogastroduodenoscopy with biopsy completed on 03/12/2018 and a gastrin test which was completed on 03/27/2018. We had the patient off of her proton pump inhibitors and her gastrin level was 82 which was within the normal limits. She is still having some soreness in the right upper quadrant abdominal area. She is not complaining of any blood loss. She is tolerating a diet. Exam Const Other: No exam today Assessment AND Plan Problems 1. Chronic gastric ulcer with hemorrhage K25.4 Plan Since the gastrin level is normal I do not think missing a gastrinoma. I think it would be prudent for us to repeat an upper endoscopy on her sometime in September to make sure things have continued to heal and there is no recurrence. I would like for her to remain on her proton pump inhibitors. This is extremely difficult case. Recurrent gastric ulcers in the face of H. pylori negativity as well as a negative gastrin level is difficult. And I may need to entertain the thought of obtaining a GI consultation. Medications Refilled: Coding Level of Care Code Off vis,est,level 2 Diagnoses Chronic gastric ulcer with hemorrhage K25.4 Gastric ulcer chronicity: chronic Gastric ulcer complication status: with hemorrhage Time Spent (min) 10 05/03/18 0931 <Electronically signed by Mitchell Montalvo MD> Date _ Mitchell Montalvo MD Cosigner Signature: Date _ (if applicable) CC: Kathie Najera DO Jana Scott Start: 04-10-2018 End: 04-10-2018 Downtime Report Comments: See Note; NOTES: [facility] Medical Records Department [address] [place] [address] Downtime Report MR#: [id number] Acct: [id number] Name: FABI QUINTEROS Rep #: [id number] : 1990 27 From: [place] Robert PCP: Kathie Najera DO Status: REG CLI This patient was seen during an EMR downtime March 24, 2018 - March 31, 2018. This patient may have a combination of paper and electronic documentation or all paper documentation. All documentation is viewable within the e-chart portion of [employer] for each patient visit. Jana Scott Start: 03-19-2018 End: 03-19-2018 Surgery Visit Report Comments: See Note; NOTES: [facility] [address] [place] [address] OFFICE VISIT Date of Service: 03/19/18 MR#: [id number] Acct: [id number] Name: FABI QUINTEROS Rep #: [id number] : 1990 Provider: Mitchell Montalvo MD Age/Sex: 27/F Location: [facility] Status: Signed Intake Intake Visit Reasons: F/U EGD 03/12/2018 DP Chief Complaint: f/u endo Manager Solution Required: No Is patient in pain?: No Allergies ciprofloxacin [From Cipro] Allergy (Verified 03/19/18 13:48) Hives ciprofloxacin HCl [From Cipro] Allergy (Verified 03/19/18 13:48) Hives levofloxacin [From Levaquin] Allergy (Verified 03/19/18 13:48) Hives prednisone Allergy (Verified 03/19/18 13:48) Hives Medications Montelukast [Singulair] 10 mg PO DAILY 04/05/17 [History Confirmed 03/11/18] Omeprazole [Prilosec] 20 mg PO BID 30 Days #60 cap 01/25/18 [Rx Confirmed 03/11/18] Sucralfate 1 gm PO 4X/DAY 30 Days #1200 mls 01/25/18 [Rx Confirmed 03/11/18] Triamcinolone Acetonide [Kenalog-40] 40 mg IM PRN PRN 03/11/18 [History Confirmed 03/11/18] Is last menstrual period known: No Post menopausal: No Patient : No PFSH Medical History GI bleed (Acute) Anemia (Acute) Gastric ulcer (Acute) Abdominal pain (Acute) Cough in adult (Acute) Sinusitis, acute (Acute) Surgical History History of cholecystectomy (Acute) History of esophagogastroduodenoscopy (EGD) (Acute 01/25/18) Social History Smoking Status: Never smoker alcohol intake: current alcohol intake frequency: a few times a week substance use type: does not use HPI HPI HPI: FABI QUINTEROS, is a 27 F who presents to the office today for for follow-up from an esophagogastroduodenoscopy with biopsy completed on 03/12/2018. She notes that she still remains sore in the epigastric and right upper quadrant area. Her scope showed that the multiple small punctated ulcerations that she once had are all healed at this time. She did have some significant linear gastritis within the stomach itself but she was once again H. pylori negative and there was no signs of any active bleeding. Exam GI Other: Abdomen is soft no rebound guarding or peritoneal signs are identified Assessment AND Plan Problems 1. Chronic gastric ulcer with hemorrhage K25.4 Plan At this point I am going to have the patient off of her proton pump inhibitor for at least one week. At that time we are going to obtain a serum gastrin level. If it is abnormal then obviously we will have to work her up for gastrinoma. It is negative I am still not sure that I am not going to have to do some sort of secretin stimulation test to see if she might still have a gastrinoma. Pretty here where we treated her effectively with proton pump inhibitors and despite that she has developed gastric ulcers and she is H. pylori negative. Coding Level of Care Code Off vis,est,level 2 Diagnoses Chronic gastric ulcer with hemorrhage K25.4 Gastric ulcer chronicity: chronic Gastric ulcer complication status: with hemorrhage 03/19/18 1420 <Electronically signed by Mitchell Montalvo MD> Date _ Mitchell Montalvo MD Cosign Signature: Date _ (if applicable) CC: Kathie Najera DO Jana Scott Start: 03-12-2018 End: 03-12-2018 Operative Report Comments: See Note; NOTES: [facility] Medical Records Department [address] [place] [address] Operative Report 03/12/18 0943 MR#: [id number] Acct: [id number] Name: FABI QUINTEROS Rep #: [id number] : 1990 27 From: Mitchell Montalvo MD PCP: Kathie Najera DO Status: [facility] Location: [place] [address] Problem List (1) Gastric ulcer Status: Acute Qualifiers: (2) Epigastric pain Status: Acute Report of Operation Date of Procedure: 03/12/18 Pre-Operative Diagnosis: k25.0 gastric ulcer. r10.13 epigastric abdominal pain Post-Operative Diagnosis: Same Surgery/Procedure Performed:: 22561 esophagogastroduodenoscopy with biopsy Type of Anesthesia:: MAC Anesthesiologist: Ba Mitchell Description of Procedure: Patient was brought into the endoscopy unit. Back of her throat was sprayed with Cetacaine spray. A bite-block was placed. She was given graded anesthesia. Scope was inserted in the back of the throat and brought down through the esophagus into the stomach and into the duodenum. Operative findings: 1. Duodenum: Normal appearance no mass lesions no ulcerations. 2. Stomach: Multiple small punctated ulcerations have all healed. She does have some significant linear gastritis within the stomach itself. Biopsy for H. pylori was obtained. Retroflexion did not show any signs of hiatal hernia. The larger ulcer on the lesser curvature the stomach had all healed. There was no signs of active bleeding. 3. Esophagus: Normal appearance no mass lesions no esophagitis Z line was at 40 cm. Scope shows improvement in the ulcerations of the stomach and actually quite surprised to see the linear all irritations. 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 - Admit VTE Documentation VTE Present on Admission: No VTE Mechan Device Prophylaxis: None VTE Pharm Prophylaxis ordered?: No Reason prophylaxis not ordered:: Treatment Not Indicated 03/12/18 0949 <Electronically signed by Mitchell Montalvo MD> Date _ Mitchell Montalvo MD CC: Mitchell Montalvo MD; Kathie Najera DO Signed Jana Scott Start: 03-11-2018 End: 03-11-2018 Surgery Visit Report Comments: See Note; NOTES: [facility] [address] [place] [address]. [address] [place] [address] OFFICE VISIT Date of Service: 03/11/18 MR#: [id number] Acct: [id number] Name: FABI QUINTEROS Rep #: [id number] : 1990 Provider: Mitchell Montalvo MD Age/Sex: 27/F Location: [facility] Status: Signed Intake Vital Signs03/11/18 Height 5 ft 7 in 03/11/18 Weight: 156 lb Intake Visit Reasons: epigastric pain and vomiting Chief Complaint: diarrhea, black stool, vomiting, nausea and abdominal pain Manager Solution Required: No Allergies ciprofloxacin [From Cipro] Allergy (Verified 03/11/18 10:31) Hives ciprofloxacin HCl [From Cipro] Allergy (Verified 03/11/18 10:31) Hives levofloxacin [From Levaquin] Allergy (Verified 03/11/18 10:31) Hives prednisone Allergy (Verified 03/11/18 10:31) Hives Medications Montelukast [Singulair] 10 mg PO DAILY 04/05/17 [History Confirmed 03/11/18] Ferrous Sulfate 325 mg PO TIDCM 30 Days #90 tab 01/25/18 [Rx Confirmed 03/11/18] Omeprazole [Prilosec] 20 mg PO BID 30 Days #60 cap 01/25/18 [Rx Confirmed 03/11/18] Sucralfate 1 gm PO 4X/DAY 30 Days #1200 mls 01/25/18 [Rx Confirmed 03/11/18] [facility] Medical History GI bleed (Acute) Anemia (Acute) Gastric ulcer (Acute) Abdominal pain (Acute) Cough in adult (Acute) Sinusitis, acute (Acute) Surgical History History of cholecystectomy (Acute) History of esophagogastroduodenoscopy (EGD) (Acute 01/25/18) Social History Smoking Status: Never smoker alcohol intake: current alcohol intake frequency: a few times a week substance use type: does not use HPI HPI HPI: FABI QUINTEROS, is a 27 F who presents to the office today for follow-up from an upper endoscopy which was completed on 01/25/2018. At that time she was noted to have 6 small gastric ulcers identified on the greater curvature the stomach and lesser curvature stomach. The largest of these was on the lesser curvature the stomach. Her H. pylori exam at that time was negative. She is actively being treated with 40 mg of Prilosec daily. And when I saw her back on 02/19/2018 she was improving. However the last several days she has noticed increasing disc comfort and soreness in the epigastric area. She has not noticed any change in her bowel or bladder habits. The pain does not radiate into the back area she has had some significant nausea. She called and I started her on some Zofran for this. Exam Const General: well developed, no acute distress, well hydrated Orientation: oriented to person, oriented to place, oriented to time [facility] Head: normocephalic, atraumatic Ears: external ears normal Mouth: moist mucous membranes Eyes Sclera: sclerae normal Pupils: normal by confrontation Neck Neck: no lymphadenopathy noted Neck mass: No Thyroid: symmetrical, thyroid normal Chest Chest palpation AND inspection: normal inspection of the chest Resp Effort AND Inspection: normal respiratory effort Auscultation: clear to auscultation bilaterally Percussion: percussion normal Cardio Rate: regular rate Rhythm: regular rhythm GI Palpation: soft, no masses, no hepatosplenomegaly, nontender Rectal Exam: other Other: Rectal exam deferred. Extrem General: no clubbing, cyanosis or edema, normal to inspection Assessment AND Plan Problems 1. Acute gastric ulcer with hemorrhage K25.0 2. Epigastric pain R10.13 Plan I have discussed the above with the patient. I have offered the patient esophagogastroduodenoscopy for evaluation. I have explained the risks/benefits of the procedure and described the procedure. I have discussed the risks with the patient, including but not limited to: infection, bleeding, perforation of the GI tract requiring emergency surgery, inability to complete the procedure, injury to any internal organs, complications of anesthesia, etc. - the patient understands and agrees to proceed. I have answered all the patient's questions to the patient's satisfaction and the patient has no further questions. Since her pain has recurred a lot will depend on what we find on this upper scope. Regardless I believe that we need to work her up for Guido-Burrell syndrome. And even if we do not see any recurrence of her ulcers she may still need to have an antrectomy with vagotomy and possibly a Billroth I. Her presentation of abdominal pain is clearly abnormal. Coding Level of Care Code Off vis,est,level 2 Diagnoses Acute gastric ulcer with hemorrhage K25.0 Gastric ulcer chronicity: acute Gastric ulcer complication status: with hemorrhage Epigastric pain R10.13 Abdominal location: epigastric 03/11/18 1033 <Electronically signed by Mitchell Montalvo MD> Date _ Mitchell Montalvo MD [facility] [place] [facility] Signature: Date _ (if applicable) CC: Kathie Najera DO Jana Scott Start: 02-20-2018 End: 02-20-2018 Surgery Visit Report Comments: See Note; NOTES: [facility] [address] [place] [address] OFFICE VISIT Date of Service: 02/19/18 MR#: [id number] Acct: [id number] Name: FABI QUINTEROS Rep #: [id number] : 1990 Provider: Mitchell Montalvo MD Age/Sex: 27/F Location: [facility] Status: Signed Intake Intake Visit Reasons: EGD 01/25 DP Chief Complaint: diarrhea, black stool, vomiting, nausea and abdominal pain Manager Solution Required: No Is patient in pain?: No Allergies ciprofloxacin [From Cipro] Allergy (Verified 02/19/18 14:18) Hives ciprofloxacin HCl [From Cipro] Allergy (Verified 02/19/18 14:18) Hives levofloxacin [From Levaquin] Allergy (Verified 02/19/18 14:18) Hives prednisone Allergy (Verified 02/19/18 14:18) Hives Medications Montelukast [Singulair] 10 mg PO DAILY 04/05/17 [History Confirmed 02/19/18] Ferrous Sulfate 325 mg PO TIDCM 30 Days #90 tab 01/25/18 [Rx Confirmed 02/19/18] Omeprazole [Prilosec] 20 mg PO BID 30 Days #60 cap 01/25/18 [Rx Confirmed 02/19/18] Sucralfate 1 gm PO 4X/DAY 30 Days #1200 mls 01/25/18 [Rx Confirmed 02/19/18] PFSH Medical History GI bleed (Acute) Anemia (Acute) Gastric ulcer (Acute) Abdominal pain (Acute) Cough in adult (Acute) Sinusitis, acute (Acute) Surgical History History of cholecystectomy (Acute) History of esophagogastroduodenoscopy (EGD) (Acute 01/25/18) Social History Smoking Status: Never smoker alcohol intake: current alcohol intake frequency: a few times a week substance use type: does not use HPI HPI HPI: FABI QUINTEROS, is a 27 F who presents to the office today for follow-up from an upper endoscopy. This was done for melena and anemia. Patient was noted to have 6 small gastric ulcers identified on the greater curvature the stomach and lesser curvature the stomach the largest of these was on the lesser curvature the stomach her H. pylori exam was negative. She is actively being treated with 40 mg of Prilosec a day. Her discomfort has improved. ROS General General: Yes fatigue; no weight change, appetite, colon cancer, breast cancer or weakness HEENT HEENT: No difficulty swallowing, eye injury, eye surgery, swollen glands or hoarseness Endo Endocrine: No thyroid disease, diabetes mellitus, thyroid cancer, Hair loss, heat intolerance or cold intolerance Skin Skin: No rash or changing moles Breast Breast: No left breast lump, right breast lump, nipple discharge, breast pain, abnormal mammogram, abnormal US or breast enlargement Musc Musculoskeletal: No back problems, arthritis, rheumatoid arthritis, gout or joint pain Cardio Cardiovascular: No murmur, pacemaker, heart disease, atrial fibrillation, high blood pressure, heart attack, heart stent, palpitations, shortness of breat with exertion or chest pain Psych Psychiatric: No depression, anxiety or hearing voices Resp Respiratory: No shortness of breath, No sleep apnea, No cough, No COPD, No asthma, No emphysema, No wheezing Gastro Gastrointestinal: Yes abdominal pain, No nausea or vomiting, No diarrhea, No constipation, No blood in stool, No acid reflux, No hemorrhoids, Yes ulcers, No gallbladder problem, No black,tarry stools Umair Hematologic: No blood thinners, No blood disorders, No bleeding, Yes anemia, No blood clots Neuro Neurologic: No system reviewed and no additional complaints, except as docu, No as per HPI, No abnormal walking, No abnormal hearing, No abnormal movements, No abnormal speech, No behavioral changes, No burning sensations, No confusion, No seizure-like activity, No unsteadiness, No dizziness, No localized weakness, No frequent falls, No headache(s), No lack of coordination, No loss of vision, No memory loss, No numbness, No other visual disturbances, No radiating pain, No restless legs, No sensory deficit, No fainting, No tingling, No tremor(s), No weakness, No other Exam Chest Breast Palpation: No nipple discharge Cardio Heart Sounds: no murmurs GI Other: Her abdomen is soft and nontender. There is no signs of rebound guarding or peritoneal signs. Assessment AND Plan Problems 1. Acute gastric ulcer with hemorrhage K25.0 Plan My plan is to re-scope her in about 6-8 weeks. She will need to remain on her proton pump inhibitor indefinitely. If the ulcers recur despite being on proton pump therapy. I am going to need to work her up for Guido-Burrell syndrome Coding Level of Care Code Off vis,est,level 2 Diagnoses Acute gastric ulcer with hemorrhage K25.0 Gastric ulcer chronicity: acute Gastric ulcer complication status: with hemorrhage 02/20/18 0652 <Electronically signed by Mitchell Montalvo MD> Date _ Mitchell March Signature: Date _ (if applicable) CC: Kathie Najera DO Jana Scott Start: 01-22-2018 End: 01-22-2018 Urgent Care Visit Report Comments: See Note; NOTES: [facility] [address] [place] [address] OFFICE VISIT Date of Service: 01/22/18 MR#: [id number] Acct: [id number] Name: FABI QUINTEROS Rep #: [id number] : 1990 Provider: Lambert GIBBS Age/Sex: 27/F Location: [facility] Status: Signed Intake Vital Signs01/22/18 Height 5 ft 7 in Intake Visit Reasons: STOMACH Chief Complaint: abdominal pain Is patient in pain?: Yes (abdominal ) Allergies ciprofloxacin [From Cipro] Allergy (Verified 01/22/18 10:19) Hives ciprofloxacin HCl [From Cipro] Allergy (Verified 01/22/18 10:19) Hives levofloxacin [From Levaquin] Allergy (Verified 01/22/18 10:19) Hives prednisone Allergy (Verified 01/22/18 10:19) Hives Medications Montelukast [Singulair] 10 mg PO DAILY 04/05/17 [History Confirmed 01/22/18] PFSH Surgical History History of cholecystectomy (Acute) Social History Smoking Status: Never smoker alcohol intake: current alcohol intake frequency: a few times a week HPI HPI Chief Complaint: abdominal pain Details: FABI QUINTEROS, is a 27 F who presents to the office today for initial evaluation abdominal pain 2 weeks. Patient notes having had similar symptoms in the summer 2016, stating she had had a cholecystectomy soon thereafter and has been asymptomatic since then. She also notes last summer having had pleurisy which resolved with monitoring and management by her PCP. She has having abdominal pain which is generalized throughout more so on her right abdomen right flank and right upper back regions which is aggravated to touch alleviated by essentially nothing. She has tried no foog-ibv-wrfiwys products to assist with her symptoms. She has a follow-up appointment with her primary care physician in 1 week, but did not want to have to wait until then to have her symptoms evaluated. She notes changes in the color or character of her urine and stool, no complaints of dysuria or urinary frequency, and no vaginal discharge or changes in menstrual cycles. She does note recent changes in her diet having added additional nutrition supplements to assist with her exercise routine which she began approximately 2-1/2 to 3 weeks ago. No other associated symptoms and no other alleviating or aggravating factors. ROS Const Constitutional: No excessive sweating, abnormal sleep pattern, chills, fever(s), night sweats or body ache Eyes Eyes: No change in vision ENT ENT: No ear pain Resp Respiratory: No cough, chest congestion or shortness of breath Cardio Cardiology: No excessive sweating, chest pain at rest, chest pain with exertion, shortness of breath, dyspnea on exertion, irregular heart rhythm, generalized swelling or leg pain with exertion Gastro GI: Positive for abdominal pain; no change in stool character, change in bowel habits, belching, bloating, diarrhea, nausea/dyspepsia, Black,tarry stools, blood in stool, loose stools or vomiting Genitourinary-Female: No difficulty urinating, urinary incontinence, burning urination, urinary frequency, painful urination or urinary urgency Musc Musculoskeletal: No joint pain, back pain, limited range of motion, tingling or numbness Skin Skin: No rash Neuro Neurology: No tingling or numbness Psych Psychiatric: No abnormal sleep pattern Endo Endocrine: No excessive sweating, change in body appearance, cold intolerance or heat intolerance Aller/Imm Allergy/Immunologic: No food intolerance Umair/Lymp Hematologic/Lymphatic: No easy bruising Exam Const General: cooperative, healthy appearing, no acute distress, uncomfortable, well groomed Nutritional Appearance: average body habitus Orientation: alert, awake, oriented x3 HENMT Head: normal to inspection Ears: hearing grossly normal bilaterally, external ears normal, TM's normal bilaterally, EAC's normal Nose: external nose normal, nares normal, septum normal, no nasal discharge Face and sinus: normal facial exam, sinuses nontender, face symmetric Mouth: tongue normal, lip normal, oropharynx normal, oral mucosae normal Teeth and gingiva: dentition normal, gingiva normal Throat: uvula midline, tonsils normal, posterior oropharynx normal, no postnasal drainage Eyes General: appearance normal, both eyes and all related structures Neck Neck: normal visual inspection, full ROM, no lymphadenopathy, no meningeal signs, supple Neck mass: No Thyroid: thyroid normal Lymphatic: no lymphadenopathy noted Chest Chest palpation AND inspection: normal inspection of the chest Resp Effort AND Inspection: normal respiratory effort, able to speak in complete sentences, symmetric chest movement, no cough Auscultation: Bilateral: Clear to Auscultation Cardio Palpation: normal PMI Rate: regular rate Rhythm: regular rhythm Heart Sounds: S1 normal, S2 normal, no gallops, no murmurs, no rubs Pulses: radial pulses present GI Inspection: normal to inspection Palpation: soft, no hepatosplenomegaly Skin General: no rashes or lesions noted Neuro General: alert, awake, oriented x3, gait normal Cognition: normal cognition Speech: speech normal Gait: normal gait Motor: muscle tone normal throughout Sensory Exam: no sensory deficits noted Extrem General: normal to inspection Psych Appearance: grossly normal Mental Status: mental status grossly normal Mood: congruent mood Affect: normal affect Speech and Movement: speech and movement normal Attitude: cooperative Thought Process: normal Thought Content: normal Judgment: judgment good Results [facility] Office Urine Color Yellow Last Edit by Mee Diego on 01/22/18 10:50 Office Urine Clarity Clear Last Edit by Mee Diego on 01/22/18 10:50 [facility] Office , Urine Negative Last Edit by Mee Diego on 01/22/18 10:50 Assessment AND Plan Problems 1. Abdominal pain R10.9 Plan Patient aware today's urinalysis dip and urine hCG results. Patient aware today's chest x-ray reveals no acute pathology per my review, pending radiology interpretation at the time of this dictation. Clear fluids, rest, Tylenol/bismuth as needed for symptomatic relief. Recommend patient discontinue lres-cbq-cwhlisn nutritional supplements which she recently started approximately 2 and half to 3 weeks ago and keep a follow-up appointment with her primary care physician as previously arranged in 1 week. Patient aware she should report to the emergency room should her symptoms only worsen or any other concerns develop. Patient states acknowledging understanding all the above. This note was generated with ZapMe dictation software. It may contain incorrect words, spelling, and punctuation that were not noted in checking the note before signing. Orders Orders: Coding Level of Care Code Off vis,est,level 4 Diagnoses Abdominal pain R10.9 01/22/18 1126 <Electronically signed by Lambert GIBBS> Date _ Lambert GIBBS Cosigner Signature: Date _ (if applicable) CC: Jana Scott Start: 01-22-2018 End: 01-23-2018 Chest PA and Lateral Comments: See Note; NOTES: [facility] Imaging Services [address] [place] [address] Chest PA and Lateral MR#: [id number] Acct: [id number] Name: NELIFABI M Rep #: [id number] : 1990 F 27 From: Nicole Baires MD PCP: Kathie Najera DO Status: REG CLI Study: Chest PA and Lateral Date of Exam: 01/22/18 Exam# [id number] Ordering Dr: Lambert Daniels STUDY: X-RAY CHEST REASON FOR EXAM: Female, 27 years old. EPIGASTRIC PAIN TECHNIQUE: Frontal and lateral views of the chest. COMPARISON: None. _ FINDINGS: The lungs are clear and expanded. There is no demonstrated pleural abnormality. Normal size heart. Normal mediastinum and cecilia. Normal visualized pulmonary arteries. Normal visualized aortic arch and descending thoracic aorta. Normal visualized thoracic spine. Normal visualized ribs, clavicles, and shoulders. There is no demonstrated abnormality of the visualized soft tissue structures of the upper abdomen. _ RAD/Chest PA and Lateral IMPRESSION: Normal x-ray examination of the chest. Electronically Signed: Nicole Baires MD at 11:33 EDT Tel , Service support , CC: Kathie Najera DO; Lambert GIBBS Shuttlecock Feather Trimmer: Signed Jana Scott Work Phone: Start: 10-08-2017 End: 10-08-2017 Urgent Care Visit Report Comments: See Note; NOTES: [facility] [address] [place] [address] OFFICE VISIT Date of Service: 10/08/17 MR#: [id number] Acct: [id number] Name: FABI QUINTEROS Rep #: [id number] : 1990 Provider: Filiberto GIBBS Age/Sex: 27/F Location: [facility] Status: Signed Intake Vital Signs10/08/17 Height 5 ft 7 in Intake Visit Reasons: CHEST CONGESTION Is patient in pain?: No Allergies ciprofloxacin [From Cipro] Allergy (Verified 10/08/17 15:46) Hives ciprofloxacin HCl [From Cipro] Allergy (Verified 10/08/17 15:46) Hives levofloxacin [From Levaquin] Allergy (Verified 10/08/17 15:46) Hives prednisone Allergy (Verified 10/08/17 15:46) Hives Medications Montelukast [Singulair] 10 mg PO DAILY 04/05/17 [History Confirmed 10/08/17] amoxicillin 875 mg-potassium clavulanate 125 mg tablet 1 tab PO Q12H 10 Days #20 tab 10/08/17 [Rx Confirmed 10/08/17] benzonatate 100 mg capsule 100 mg PO TID PRN 10 Days #30 cap 10/08/17 [Rx Confirmed 10/08/17] PFSH Medical History Sinusitis, acute (Acute) Surgical History History of cholecystectomy (Acute) Social History Smoking Status: Never smoker alcohol intake: current alcohol intake frequency: a few times a week HPI CHEST CONGESTION: Details: FABI QUINTEROS, is a 27 F who presents to the office today for evaluation of nasal pain, sinus pressure and cough for the past 2 weeks. Patient states that the nasal drainage has increased over the past week and seems to of cause nasal pressure below her eyes. She denies any sinus headaches however states that she does have facial pain. Additionally she complains of cough which has kept her awake at night. She denies hemoptysis or shortness of breath. No chest pain. No fever, chills, sweats. No other associated symptoms or alleviating/aggravating factors. ROS Const Constitutional: No fever(s), chills, night sweats or headache(s) ENT ENT: Positive for nasal congestion, sinus pressure, sinus pain, nasal discharge and facial pain; no headache(s) or ear pain Resp Respiratory: Positive for cough Cough: Yes non-productive; no shortness of breath, hemoptysis or pain on inspiration Cardio Cardiology: No shortness of breath, irregular heart rhythm or fast heart rate Neuro Neurology: No headache(s) or confusion Psych Psychiatric: No confusion Exam Const General: cooperative HENMT Head: normal to inspection Ears: hearing grossly normal bilaterally Nose: nasal discharge purulent, no epistaxis, no nasal polyps Face and sinus: sinus tenderness frontal and maxillary Mouth: oral mucosae normal Throat: abnormal tonsil bilaterally, postnasal drainage Resp Effort AND Inspection: normal respiratory effort Auscultation: Bilateral: Clear to Auscultation Cardio Rate: regular rate Rhythm: regular rhythm Neuro General: alert, CN's II-XI intact bilaterally Psych Appearance: grossly normal Mental Status: mental status grossly normal Assessment AND Plan Problems 1. Acute non-recurrent maxillary sinusitis J01.00; J01.00 Status Acute 2. Cough in adult R05 Status Acute Plan Encouraged to get plenty of rest, drink lots of clear liquids, and use Tylenol or Ibuprofen (unless contraindicated) for fever and comfort. Patient also educated on other symptomatic management techniques. To be seen in 7-10 days if no improvement; sooner if worsening of symptoms. Patient advised of potential red flags and when appropriate report to the ED. Patient verbalized understanding of the above. Medications New: Coding Level of Care Code Off vis,new,level 3 Diagnoses Acute non-recurrent maxillary sinusitis J01.00; J01.00 Sinusitis location: maxillary Recurrence: non-recurrent Cough in adult R05 10/08/17 1818 <Electronically signed by Filiberto GIBBS> Date _ Filiberto GIBBS Cosigner Signature: Date _ (if applicable) CC: Jana Scott Start: 06-14-2017 End: 06-14-2017 Emergency Department Summary Comments: See Note; NOTES: [facility] Medical Records Department [address] [place] [address] Emergency Department Summary 06/13/17 1728 MR#: [id number] Acct: [id number] Name: FABI QUINTEROS Rep #: [id number] : 1990 27 From: Chicho Benavides MD PCP: Kathie Najera DO Status: DEP ER - ER Visit Summary Date of Service: 06/13/17 Chief Complaint: Abdominal pain History of Present Illness: The patient is a [address] Najera. She reports that she has had epigastric abdominal pain for the past 6 days. Is a constant waxing and waning pain. She describes the pain as sharp. Is 8 out of 10 in severity at worst and currently. Is worsened by nothing including movement or food. It is also relieved by nothing. She reports that she has been nauseated and vomiting. Today she is vomited approximately 15 times. No blood in her emesis. She reports that today is the first day that she has had diarrhea. She had approximately 5 episodes. No blood in her stools or black tarry stools. No dysuria or frequency. Her last menstrual period was 3 weeks ago. No vaginal bleeding or discharge. Of note patient was in the emergency department approximately 1 week ago and had a CT of the chest that was negative. She was started on etodolac, which she stopped 2 days ago. Patient denies sick contacts. Has not been camping out of the country. No possible bad food exposure. She does drink well water, but others do at home as well and they are not ill. No recent antibiotic use. Physical Examination: Vitals: Stable. Afebrile. General: Well-nourished and well-developed. Head: Normocephalic atraumatic. Neck: Supple, no lymphadenopathy. No JVD. Nontender. Cardiovascular: Regular rate and rhythm. No murmurs. Respiratory: No respiratory distress. Clear to auscultation bilaterally. Abdominal: Soft, mild epigastric and right upper quadrant tenderness to palpation, nondistended, normal bowel sounds. No guarding, rebound, or peritoneal signs. Back: Nontender. Extremities: Nontender, no edema. Skin: Normal color, no rash. Neurologic: Alert and oriented 3. Cranial nerves II through XII are intact. Normal strength and sensation. Psych: Normal affect. Test Results: EDC is more for hematocrit of 36.9, lymphocytes 17, monocytes of 11, and eosinophils of 10. Chem-7 is normal. LFTs are marked for an albumin 3.1, globulin 3.8, alk phos of 42, and AST of 11. Her lipase is normal. Her UA is negative. Her test is negative. Emergency Department Course and Treatment: Patient had an IV placed. She was given Zofran IV and GI cocktail p.o. She did have significant relief with this. Treatment Plan: Patient will be discharged on Prilosec and instructed to follow-up with Dr. Najera in 1 week if not improving. Return to the emergency department for any worsening symptoms. Disposition: To home in improved and stable condition. Impression: 1. Epigastric abdominal pain. This note was generated with ZapMe dictation software. It may contain incorrect words, spelling, and punctuation that were not noted in review of the chart prior to signing. ED Disposition - Plan for ED Patient: Chief Complaint: Abd Pain Instructions: ED PUD Vs Gastritis Prescriptions: Ondansetron [Zofran Odt] 4 mg PO Q8H PRN PRN #10 tablet PRN Reason: Nausea Omeprazole [Prilosec] 20 mg PO DAILY #30 capsule Referrals: Kathie Najera DO [Primary Care Provider] - 1 Week Additional Instructions: Use Duo complete (a combination of Tums and Pepcid) for the next few days until the Prilosec begins to work. What to do if you have Problems For any increased pain, shortness of breath, bleeding, nausea or vomiting, chest pain, or any unexpected problems, contact your Primary Care Provider. Call [facility] ([phone]) or report to the closest Emergency Room. Call 911 if necessary. 06/14/17 0025 <Electronically signed by Chicho Benavides MD> Date _ Chicho Benavides MD Cosigner Signature (If Indicated): Date _ CC: Kathie Najera DO Jana Scott Start: 06-07-2017 End: 06-07-2017 12 lead ECG Comments: See Note; NOTES: [facility] Cardiovascular Services [address] [place] [address] 12 Lead EKG 06/06/17 1855 MR#: [id number] Acct: [id number] Name: FABI QUINTEROS Rep #: [id number] : 1990 27 From: Thai Austin MD Attending Dr: Status: DEP ER Ordering Dr: Venkata Calderon MD Date: 06/06/17 Location: ED Sex: F C Admitted: Test Reason : SHORTNESS OF BREATH Blood Pressure : / mmHG Vent. Rate : 069 BPM Atrial Rate : 069 BPM P-R Int : 138 ms QRS Dur : 076 ms QT Int : 390 ms P-R-T Axes : 067 057 039 degrees QTc Int : 417 ms Normal sinus rhythm Normal ECG Confirmed by THAI AUSTIN MD ([id number]), editor house organ ENDY DENG ([id number]) on 06/07/2017 9:04:55 AM Referred By: JONAS Confirmed By:THAI AUSTIN MD 06/07/17 0904 Date _ Thai Austin MD CC: Kathie Najera DO Date Dictated: 06/06/171854 Date Transcribed: 06/06/171854 Shuttlecock Feather Trimmer: Signed Jana Scott Start: 06-06-2017 End: 06-06-2017 Emergency Department Summary Comments: See Note; NOTES: [facility] Medical Records Department [address] [facility] [place] [address] Emergency Department Summary 06/06/171857 MR#: [id number] Acct: [id number] Name: FABI QUINTEROS Rep #: [id number] : 1990 From: Venkata Calderon MD PCP: Kathie Najera DO Status: DEP ER - ER Visit Summary Date of Service: 06/06/17 Chief Complaint: Back pain, shortness of breath History of Present Illness: The patient is a 27 F who presents to the emergency department with back pain and dyspnea. The patient states her symptoms began on Saturday. She states she woke with some pain in her back mostly on the right side. She thought that she had some ribs out . She went to the chiropractor. She states that she got some manipulation and stim treatment she did feel little bit better. However, the pain got worse again. She states worse when she takes a deep breath. She did have a cholecystectomy at the end of March. She has no history of pulmonary embolus. She does not take control. She does not smoke. She denies any recent travel. She was seen in the office by her PCP. She had a d-dimer which was elevated. Physical Examination: Vital signs reviewed General: Well-nourished, well-developed Head: Normocephalic, atraumatic Eyes: Pupils equal and reactive, extraocular muscles intact Neck, supple, no lymphadenopathy Heart: Regular rate and rhythm Respiratory: No distress, clear bilaterally Abdomen: Soft, nontender, nondistended, no peritoneal signs Back: Nontender Extremities: Nontender, no edema, no cords Skin: Normal color no rash Neuro: Alert and oriented, no focal or lateralizing deficits Test Results: CT of the chest shows no acute pulmonary embolus Emergency Department Course and Treatment: Patient presents with right-sided posterior lung pain worse with breathing and a positive d-dimer. She did have a recent cholecystectomy. Patient underwent CTA which is negative. There is no evidence of acute pulmonary embolus. I am unsure of the exact etiology of her pain but I do not suspect a dangerous process. Patient will continue anti-inflammatories, analgesics, and antispasmodics. She will follow-up with Dr. Najera for reevaluation within the next few days. Treatment Plan: [] Disposition: Discharged home Impression: 1. Pleurisy ED Disposition - Plan for ED Patient: Disposition: Home or Assisted Living Chief Complaint: Abn Labs Instructions: ED Chest Pain Pleurisy Prescriptions: Oxycodone HCl/Acetaminophen [Percocet 5/325] 1 - 2 tablet PO Q4H PRN PRN #12 tablet PRN Reason: Pain Referrals: Kathie Najera, [Primary Care Provider] - What to do if you have Problems For any increased pain, shortness of breath, bleeding, nausea or vomiting, chest pain, or any unexpected problems, contact your Primary Care Provider. Call [facility] ([phone]) or report to the closest Emergency Room. Call 911 if necessary. 06/06/17 8391 <Electronically signed by Venkata Calderon MD> Date _ Venkata Calderon MD Cosigner Signature (If Indicated): Date _ CC: Kathie Najera DO Jana Scott Start: 06-06-2017 End: 06-06-2017 CTA Chest W/WO Contrast Comments: See Note; NOTES: [facility] Imaging Services [address] [place] [address] CTA Chest W/WO Contrast MR#: [id number] Acct: [id number] Name: FABI QUINTEROS Rep #: [id number] : 1990 From: mEiliano Wise MD PCP: Kathie Najera DO Status: REG ER Study: CTA Chest W/WO Contrast Date of Exam: 06/06/17 Exam# [id number] Ordering Dr: Venkata Calderon MD STUDY: CTA CHEST REASON FOR EXAM: Female, 27 years old. Short of breath and chest pain RADIATION DOSAGE (If Supplied By Facility): CTDIvol = ( 13.69 ) mGy, DLP = ( 369.30 ) mGycm TECHNIQUE: The examination was performed with the intravenous administration of 75ML ml of Isovue 370 contrast material. Post-processing of the angiographic images was performed, with multiplanar reformation and 3D reconstruction. Individualized dose optimization techniques were used for this CT. COMPARISON: None. _ FINDINGS: Normal enhancement of the main pulmonary artery and right and left pulmonary arteries. Normal enhancement of the bilateral peripheral pulmonary arteries. There is no demonstrated pulmonary embolism. Normal thoracic aorta and visualized great vessels. There is no demonstrated aortic dissection. Normal heart and pericardium. Normal mediastinum. Normal hilar regions. Normal visualized trachea and bronchi. The lungs are well expanded. Normal pulmonary parenchyma. Normal pleura. Normal chest wall structures. Normal osseous structures. Normal visualized upper abdomen. _ CT/CTA Chest W/WO Contrast IMPRESSION: Normal CTA chest examination, without a demonstrated pulmonary embolism or arterial dissection. No evidence for pulmonary embolus, aortic aneurysm, periaortic leak or dissection Electronically Signed: Emiliano Wise MD at 20:28 EDT , Service support , CC: Kathie Najera DO; Venkata Calderon MD Shuttlecock Feather Trimmer: Signed Jana Scott Start: 04-13-2017 End: 04-13-2017 Consultation Comments: See Note; NOTES: [facility] Medical Records Department [address] [place] [address] Consultation MR#: [id number] Acct: [id number] Name: FABI QUINTEROS Rep #: [id number] : 1990 26 From: Mitchell Montalvo MD PCP: Kathie Najera DO Status: [facility] DATE OF SERVICE: 04/11/2017 This is a 26-year-old white female whom I have been following along for many months now. She has been complaining of right upper quadrant abdominal pain that goes into her back, shoulder area. She describes the pain as a 7/10. It is achy, sharp, shooting and stabbing. She denies any heartburn. She denies dysphagia. Denies history of peptic ulcer disease. She has had a negative gallbladder ultrasound, a HIDA scan with ejection fraction of 61%. The HIDA scan did bring about her symptoms of sweating, nausea and pain. The patient has had an upper scope revealing a little bit of gastritis. She was placed on a proton pump inhibitor, which I initially thought was going to make her feel much better, but unfortunately she is still having classic biliary colic type pain. I have ordered H. pylori series which all came back negative. At this point, I do not think we have any other choice, but to remove her gallbladder. PAST MEDICAL HISTORY: Significant for cough and pharyngitis. PAST MEDICAL HISTORY: None. CURRENT MEDICATIONS: She is on Nasonex, Singulair, Dulera, Loprox, Tessalon perles. ALLERGIES: Cipro, Levaquin and prednisone. SOCIAL HISTORY: Single. No smoking. No alcohol. REVIEW OF SYSTEMS: Currently no heart, lung or kidney disease. No apparent coughing, shortness of breath, dyspnea on exertion. No dysuria, hematuria. No easy bruising. PHYSICAL EXAMINATION: HEENT: Benign. LUNGS: Clear. HEART: Regular rate. ABDOMEN: Soft. IMPRESSION: Right upper quadrant abdominal pain, bilious vomiting and nausea. PLAN: Plan will be to perform laparoscopic appendectomy. Risks, benefits have been reviewed in great detail with the patient numerous times to include bleeding, infection, blood clots, heart attacks, pneumonia, strokes, injury to surrounding structures up to and including . I have also instructed her that there is a chance that this may not work at all for her discomfort in which I will have to refer her either to pain management or to GI. Mitchell Montalvo MD T: NTS JOB: [id number] 04/13/17 1454 <Electronically signed by Mitchell Montalvo MD> Date _ Mitchell Montalvo MD Cosigner Signature (If Indicated): Date _ CC: Mitchell Montalvo MD; Kathie Najera DO Date Dictated: 04/11/171246 Date Transcribed: 04/11/171246 Shuttlecock Feather Trimmer: Signed Jana Sonia Start: 04-13-2017 End: 04-13-2017 Operative Report Comments: See Note; NOTES: [facility] Medical Records Department [address] [place] [id number] Operative Report MR#: [id number] Acct: [id number] Name: FABI QUINTEROS Rep #: [id number] : 1990 26 From: Mitchell Montalvo MD PCP: Kathie Najera DO Status: [facility] DATE OF SERVICE: 04/11/2017 DATE OF OPERATION: April 11, 2017 PREOPERATIVE DIAGNOSES: Right upper quadrant abdominal pain, bilious nausea and vomiting. POSTOPERATIVE DIAGNOSES: Right upper quadrant abdominal pain, bilious nausea and vomiting. PROCEDURE: Laparoscopic cholecystectomy. SURGEON: Mitchell Montalvo MD. ANESTHESIA: General endotracheal intubation. ESTIMATED BLOOD LOSS: Less than 25 mL. FLUID REPLACEMENT: About a liter of crystalloid. ASA: 2. DESCRIPTION OF PROCEDURE: The patient was brought into the operating room, placed in supine position. Under excellent general endotracheal intubation, the abdomen was sterilely prepped and draped in usual fashion. Local was injected infraumbilically. Incision was made, carried down to the fascia. The fascia was grasped with Delonte. Veress needle inserted into the abdomen. The abdomen was insufflated to 15 torr. A 10/12 trocar was placed without difficulty. Subxiphoid #5 trocar was placed. Inferior to this, another #5 trocar was placed; laterally a #5 trocar was placed. Fundus of the gallbladder was grasped and retracted in a cephalad direction. Infundibulum was grasped and retracted laterally. These have moderate amount of adhesions, which were taken down with electrocautery. Came down to the cystic duct, placed Hem-o-Vicky clips proximally and distally and ligated the duct, came down to the cystic artery, placed Hem-o-Vicky clips proximally and distally, ligated the artery, delivered the gallbladder from the gallbladder bed with the use of electrocautery, had no spillage of bile. I placed the specimen in specimen bag, delivered it through the umbilical port without difficulty. Inspection of the right upper quadrant revealed good hemostasis. Removed the trocars under direct visualization. Good hemostasis. Closed the fascia of the umbilical port with [id number] stitch of 0 Vicryl. Skin incisions were closed with subcuticular stitches of 4-0 Monocryl. Steri-Strips were applied. Sterile dressings were applied and the patient tolerated the procedure well. Mitchell Montalvo MD T: NTS JOB: [id number] 04/13/17 1454 <Electronically signed by Mitchell Montalvo MD> Date _ Mitchell Montalvo MD Cosigner Signature (If Indicated): Date _ CC: Mitchell Montalvo MD; Kathie Najera DO Date Dictated: 04/11/17 1405 Date Transcribed: 04/11/17 140 Shuttlecock Feather Trimmer: Signed Jana Scott Start: 04-11-2017 End: 04-11-2017 Discharge Instruction Comments: See Note; NOTES: [facility] Medical Records Department [address] [place] [address] Instructions for Home/Discharge Instructions 04/11/17 1329 MR#: [id number] Acct: [id number] Name: FABI QUINTEROS Rep #: [id number] : 1990 26 From: Mitchell Montalvo MD PCP: Kathie Najera DO Status: [facility] Discharge Diet: Light diet - advance as tolerated Discharge Activity: May Not Drive - for 2-3 days or while taking narcotic pain medications., - - Do not drive, work heavy equipment or sign legal documents for 24 hours. May shower in (days): 1 - with the bandage in place. Additional Activity Instructions:: Pain medication may cause nausea. You should typically eat light foods as you take your pain medications. Pain medication may also cause constipation. If this is a problem for you, please discuss with your doctor. Call your doctor if your incision/area has: Continuous Slow Oozing, Sudden Increased Bleeding, Increased Pain/ Swelling, Increased Redness, Foul Smelling Discharge Call your doctor if you observe: Fever of 101 or Higher Suture Line Care: Avoid Pulling/Pushing, Avoid Pinching/Bending Additional Dressing/Incision Instructions:: Leave operative bandaids on for 2 days. When you remove dressing, leave Steri-Strips on until your follow-up appointment, or until the Steri- Strips fall off on their own. Allergies/Adverse Reactions: Allergies ciprofloxacin [From Cipro] Allergy (Verified 04/05/17 14:59) Hives ciprofloxacin HCl [From Cipro] Allergy (Verified 04/05/17 14:59) Hives levofloxacin [From Levaquin] Allergy (Verified 04/05/17 14:59) Hives prednisone Allergy (Verified 04/05/17 14:59) Hives Medications to take at Discharge Montelukast [Singulair] 10 mg PO DAILY 04/05/17 Oxycodone HCl/Acetaminophen [Percocet 5/325] 1 - 2 tablet PO Q4H PRN PRN #30 tablet 04/11/17 The following prescriptions were given: Oxycodone HCl/Acetaminophen [Percocet 5/325] 1 - 2 tablet PO Q4H PRN PRN #30 tablet PRN Reason: Pain Primary Care Physician: Kathie Najera DO [Primary Care Provider] - Please Follow Up With: Mitchell Montalvo - Please call [phone] to schedule an appointment. When: 7 days after your surgery. 04/11/17 1329 <Electronically signed by Mitchell Montalvo MD> Date _ Mitchell Montalvo MD CC: Kathie Najera DO Jana Scott Start: 04-09-2017 End: 04-09-2017 12 lead ECG Comments: See Note; NOTES: [facility] Cardiovascular Services [address] [place] [address] 12 Lead EKG 04/08/17 1247 MR#: [id number] Acct: [id number] Name: FABI QUINTEROS Rep #: [id number] : 1990 26 From: Thai Austin MD Attending Dr: Mitchell Montalvo MD Status: PRE SDC Ordering Dr: Mitchell Montalvo MD Date: 04/08/17 Location: [facility] Sex: F C Admitted: Test Reason : PRE-OP Blood Pressure : / mmHG Vent. Rate : 069 BPM Atrial Rate : 069 BPM P-R Int : 150 ms QRS Dur : 080 ms QT Int : 414 ms P-R-T Axes : 072 056 047 degrees QTc Int : 443 ms Normal sinus rhythm Possible Left atrial enlargement Borderline ECG Confirmed by THAI AUSTNI MD ([id number]), editor house organ JESUS ROBERT ([id number]) on 04/09/2017 2:56:30 PM Referred By: ARSEN Confirmed By:THAI AUSTIN MD 04/09/17 1456 Date _ Thai Austin MD CC: Kathie Najera DO Date Dictated: 04/08/17 1247 Date Transcribed: 04/08/171246 Shuttlecock Feather Trimmer: Signed Jana Scott Start: 05-30-2016 End: 05-30-2016 Ecg routine ecg w/least 12 lds w/i&r [MEASUREMENTS ANALYSIS] Date of Test: 05/30/2016 14:23:35; Heart Rate: 64; NM Interval: 160; QRS: 88; QT Interval: 396; Corrected QT Interval (QTc): 403; P Wave Avery: 67; QRS Wave Avery: 46; T Wave Avery: 19; Blood Pressure: 126/70 [ECG DIAGNOSTIC STATEMENTS] Date of Test: 05/30/2016 14:23:35; Summary: Sinus Rhythm -With rate variation cv = 14.WITHIN NORMAL LIMITS Kathie Najera Work Phone: Plan of Treatment Date Care Activity Detail Author Start: 06-21-2022 Influenza vaccination [facility] Start: 02-12-2022 Procedure Education Eprescribed prescriptions (G8553) [facility] Work Phone: Start: 02-12-2022 Provider Instructions for Treatment Continue Current Prescription(s) [facility]; [facility] Work Phone: Start: 08-06-2019 Provider Instructions for Treatment *Abd Pain Red Flags [facility] Work Phone: Start: 08-06-2019 Blood count manual cell count each CBC with auto diff (29336) [facility] Work Phone: Start: 08-06-2019 Comprehensive metabolic panel Metabolic Panel, Comprehensive (03802) [facility] Work Phone: Start: 08-06-2019 Sedimentation rate rbc non-automated Sed Rate Erythrocyte (09012) [facility] Work Phone: Start: 08-06-2019 C-reactive protein C-REACTIVE PROTEIN (39977) [facility]; [facility] Work Phone: Start: 08-06-2019 CRP [Mass/Vol] C-REACTIVE PROTEIN (05000) [facility] Work Phone: Start: 05-08-2018 Procedure Education Eprescribed prescriptions (G8553) [facility] Work Phone: Start: 05-08-2018 Provider Instructions for Treatment [facility] Work Phone: Start: 05-08-2018 Assay of thyroid stimulating hormone tsh TSH (61920) [facility]; [facility] Work Phone: Start: 05-08-2018 TSH Qn TSH (93275) [facility] Work Phone: Start: 05-08-2018 Comprehensive metabolic panel METABOLIC PANEL, COMPREHENSIVE (00367) [facility] Work Phone: Start: 05-08-2018 Iron binding capacity IRON BINDING CAPACITY (TIBC) (53419) [facility] Work Phone: Start: 05-08-2018 Assay of iron IRON (63272) [facility]; [facility] Work Phone: Start: 05-08-2018 Iron [Mass/Vol] IRON (58822) [facility] Work Phone: Start: 05-08-2018 Assay of ferritin FERRITIN (00753) [facility]; [facility] Work Phone: Start: 05-08-2018 Ferritin [Mass/Vol] FERRITIN (36060) [facility] Work Phone: Start: 05-08-2018 Blood count complete auto&auto difrntl wbc CBC W/AUTO DIFF WBC (23393) [facility] Work Phone: Start: 2018 HPV TESTING HPV TESTING [facility] Start: 02-05-2018 Provider Instructions for Treatment [facility] Work Phone: Start: 01-27-2018 Assay of iron Iron (78074) [facility]; [facility] Work Phone: Start: 01-27-2018 Iron [Mass/Vol] Iron (14181) [facility] Work Phone: Start: 07-09-2017 End: 07-09-2017 Appointment Appointment [facility] Work Phone: Start: 06-10-2017 Procedure Education Eprescribed prescriptions (G8553) [facility] Work Phone: Start: 06-10-2017 Provider Instructions for Treatment [facility] Work Phone: Start: 06-06-2017 Fibrin dgradj products d-dimer quantitative D-Dimer (70871) [facility] Work Phone: Payers Date Payer Category Payer Private Health Insurance [facility] [employer] CHOICE PLUS [id number] 2012-Present [phone] [address] [address] [place] [address] HMO [id number] 2012 Private Health Insurance [facility] UMR CHOICE PLUS [id number] 2012-Present [phone] [address] [address] [place] [address] HMO [id number] 1988 Unknown [id number] 1988 Unknown [id number] 1988 Unknown [id number] 1988 Unknown [id number] 1959 Private Health Insurance [id number] Unknown Social History Date Type Detail Facility Start: 02-21-2022 End: 03-07-2022 Current Work/Study Status Current Work/Study Status [facility] Work Phone: Functional Status Date Assessment Result Facility NEGATED: Highlighted row Functional performance Functional status health issues are not documented [facility] -[facility] Work Phone: Mental Status Date Assessment Result Facility NEGATED: Highlighted row Cognitive function [Interpretation] Cognitive status health issues are not documented [facility] Work Phone: Clinical Notes 01-23-2016 to 08-16-2022 Addendum Note - Jaylene Martínez, DO - 06/29/2022 1:06 PM Radha Martínez, DO - 06/29/2022 11:19 AM Radha Martínez, DO - 05/16/2022 10:58 AM EDT Note Date & Type Note Facility 08-16-2022 Note HNO ID: [id number] Author: Jaylene Martínez, DO Service: ? Author Type: Physician Type: Progress Notes Filed: 08/16/2022 9:40 AM Note Text: Follow Up Visit Chief Complaint Fabi Quinteros is a 32 year old female who presents today for follow up office visit. Patient presents with: Right Knee - Follow Up, Post Op History of Present Illness PAIN EVALUATION No data found in the last 1 encounters. HPI: Fabi Quinteros is a 32 year old female for a follow up visit follow up after right knee surgery. Pain history is noted as above. Denies calf pain, numbness, tingling, fever, chills or other constitutional symptoms. Back to almost all activities, happy with progress. Is there any overall improvement in your condition? Yes, Any new injury, since being seen last: No REVIEW OF SYMPTOMS: Patient did not have, and does not currently have, any weight loss, malaise, fever, chills, headache, chest pain, chest pressure, palpitations, cough, shortness of breath, orthopnea, paroxsymal nocturnal dyspnea, nausea, vomiting, diarrhea, constipation, melena, hematochezia, urinary difficulties, prolonged bleeding, easily bruising, heat or cold intolerance, new onset joint pain or swelling, new onset extremity weakness or numbness, new onset auditory or visual disturbances, lightheadedness, dizziness, partial loss of consciousness or full loss of consciousness. Current Outpatient Medications Medication Sig meloxicam (MOBIC) 7.5 mg tablet Take 1 tablet by mouth once daily. busPIRone (BUSPAR) 7.5 mg tablet Take 7.5 mg by mouth twice daily. levonorgestrel (MIRENA INTRAUTERINE) by INTRAUTERINE route. albuterol HFA (PROVENTIL HFA, VENTOLIN HFA) 90 mcg/actuation inhaler Inhale 2 Puffs as instructed as needed. sucralfate (CARAFATE) 1 gram tablet Take 1 tablet by mouth four times daily. (Patient taking differently: Take 1 g by mouth as needed.) pantoprazole DR (PROTONIX) 40 mg tablet Take 40 mg by mouth once daily. montelukast (SINGULAIR) 10 mg tablet Take 10 mg by mouth daily at bedtime. CALCIUM CARBONATE (TUMS ORAL) Take by mouth as needed. oxyCODONE-acetaminophen (PERCOCET) 5-325 mg tablet Take 1 tablet by mouth every 6 hours as needed for pain. (Patient not taking: Reported on 08/16/2022) oxyCODONE-acetaminophen (PERCOCET) 5-325 mg tablet Take 1 tablet by mouth every 6 hours as needed for pain. (Patient not taking: Reported on 08/16/2022) No current facility-administered medications for this visit. Physical Exam Vitals: [facility] 11/12/2018 Psych: Pleasant, good affect and mood General Appearance: Well appearing, alert, in no acute distress, well-hydrated, well nourished.. Skin: Skin color, texture, turgor normal, no suspicious rashes or lesions. Peripheral Pulses: Normal. Neurologic: Gait normal. Reflexes normal and symmetric. Sensation grossly intact.. Lymph Nodes: No cervical lymphadenopathy, No supraclavicular lymphadenopathy, No axillary lymphadenopathy., and No inguinal lymphadenopathy.. Respiratory: No recent pulmonary infection, hemoptysis, chronic cough, or shortness of breath at rest Rheumatologic: Joint deformities: no pain knees Right Knee Exam Right knee exam is normal. Muscle Strength The patient has normal right knee strength. Tenderness The patient is experiencing no tenderness. Range of Motion Extension: normal Flexion: normal Tests Pb: Anterior - negative Posterior - negative Drawer: Anterior - negative Posterior - negative Other Erythema: absent Sensation: normal Pulse: present Swelling: none Left Knee Exam Left knee exam is normal. Muscle Strength The patient has normal left knee strength. Tenderness The patient is experiencing no tenderness. Range of Motion Extension: normal Flexion: normal Tests Pb: Anterior - negative Posterior - negative Drawer: Anterior - negative Posterior - negative Other Erythema: absent Sensation: normal Pulse: present Swelling: none Comments: Neg homans bilaterally Assessment and Plan Radiographs: No imaging to review. 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 We discussed strategies for decreasing pain and improving strength, stability and motion. Patient's questions were answered in detailed. Patient verbalizes understanding and agrees with the treatment plan as discussed. Patient doing well back to all activities no issues no complaints Follow-up on an as-needed basis Patient aware and in agreement of plan. All questions answered. Jaylene Martínez, DO [facility] 08-16-2022 Note HNO ID: [id number] Author: Marta Brewer RN Service: ? Author Type: Registered Nurse Type: Progress Notes Filed: 08/16/2022 9:40 AM Note Text: Patient presents with: Right Knee - Follow Up, Post Op Pt here for follow up on right knee. Pt denies pain. [facility] 06-29-2022 Note HNO ID: [id number] Author: Jaylene Martínez, DO Service: ? Author Type: Physician Type: Progress Notes Filed: 06/29/2022 11:22 AM Note Text: Follow Up Visit Chief Complaint Fabi Quinteros is a 32 year old female who presents today for follow up office visit. Patient presents with: Right Knee - Post Op, Established Patient, Follow Up History of Present Illness PAIN EVALUATION 06/29/2022 0838 Pain Level: 3 Pain Location: Knee-Right Description: Aching;Dull Frequency: Continuous Intervention/Comfort measure: Medication;Cold naprosyn prn Comments: PT currently HPI: Fabi Quinteros is a 32 year old female for a follow up visit right knee arthroscopy. Pain history is noted as above. In PT, clicking, snapping, popping with deep knee squats at PT, no recurrent swelling ,no calf pain or other concerns.Patient aware and in agreement of plan. All questions answered. Is there any overall improvement in your condition? Yes, Any new injury, since being seen last: No REVIEW OF SYMPTOMS: Patient did not have, and does not currently have, any weight loss, malaise, fever, chills, headache, chest pain, chest pressure, palpitations, cough, shortness of breath, orthopnea, paroxsymal nocturnal dyspnea, nausea, vomiting, diarrhea, constipation, melena, hematochezia, urinary difficulties, prolonged bleeding, easily bruising, heat or cold intolerance, new onset joint pain or swelling, new onset extremity weakness or numbness, new onset auditory or visual disturbances, lightheadedness, dizziness, partial loss of consciousness or full loss of consciousness. Current Outpatient Medications Medication Sig naproxen (NAPROSYN) 500 mg tablet Take 500 mg by mouth twice daily as needed. oxyCODONE-acetaminophen (PERCOCET) 5-325 mg tablet Take 1 tablet by mouth every 6 hours as needed for pain. oxyCODONE-acetaminophen (PERCOCET) 5-325 mg tablet Take 1 tablet by mouth every 6 hours as needed for pain. busPIRone (BUSPAR) 7.5 mg tablet Take 7.5 mg by mouth twice daily. levonorgestrel (MIRENA INTRAUTERINE) by INTRAUTERINE route. albuterol HFA (PROVENTIL HFA, VENTOLIN HFA) 90 mcg/actuation inhaler Inhale 2 Puffs as instructed as needed. sucralfate (CARAFATE) 1 gram tablet Take 1 tablet by mouth four times daily. (Patient taking differently: Take 1 g by mouth as needed.) pantoprazole DR (PROTONIX) 40 mg tablet Take 40 mg by mouth once daily. montelukast (SINGULAIR) 10 mg tablet Take 10 mg by mouth daily at bedtime. CALCIUM CARBONATE (TUMS ORAL) Take by mouth as needed. No current facility-administered medications for this visit. Physical Exam Vitals: Ht 5' 7 (1.70m) Wt 177 lb (80.3kg) LMP 11/12/2018 BMI 27.72 kg/(m2). Psych: Pleasant, good affect and mood General Appearance: Well appearing, alert, in no acute distress, well-hydrated, well nourished.. Skin: Skin color, texture, turgor normal, no suspicious rashes or lesions. Peripheral Pulses: Normal. Neurologic: Gait normal. Reflexes normal and symmetric. Sensation grossly intact.. Lymph Nodes: No cervical lymphadenopathy, No supraclavicular lymphadenopathy, No axillary lymphadenopathy., and No inguinal lymphadenopathy.. Respiratory: No recent pulmonary infection, hemoptysis, chronic cough, or shortness of breath at rest Rheumatologic: Joint deformities: right knee pain Right Knee Exam Tenderness The patient is experiencing tenderness in the medial retinaculum and lateral retinaculum. Range of Motion Extension: normal Flexion: normal Tests Pb: Anterior - negative Posterior - negative Drawer: Anterior - negative Posterior - negative Other Erythema: absent Scars: present Sensation: normal Pulse: present Swelling: none Comments: Atrophy right knee Left Knee Exam Left knee exam is normal. Muscle Strength The patient has normal left knee strength. Tenderness The patient is experiencing no tenderness. Range of Motion Extension: normal Flexion: normal Tests Pb: Anterior - negative Posterior - negative Drawer: Anterior - negative Posterior - negative Other Erythema: absent Sensation: normal Pulse: present Swelling: none Comments: Neg homans bilaterally Assessment and Plan Radiographs: No imaging to review. Impression: Encounter Diagnosis ICD-10-CM 1. 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 H/O arthroscopic knee surgery Z98.890 Today, in detail, through a thorough evaluation, we discussed possible etiologies of pain and our plans for further diagnostic and therapeutic interventions. We discussed strategies for decreasing pain and improving strength, stability and motion. Patient's questions were answered in detailed. Patient verbalizes understanding and agrees with the treatment plan as discussed. If not improved at next visit will inject scar tissue med/lat with kenalog Ok to start back jogging Ok to (more content not included)... [facility] 06-29-2022 Miscellaneous Notes Addended by: JAYLENE MARTÍNEZ on: 06/29/2022 01:06 PM Modules accepted: Orders documented in this encounter [facility] 06-29-2022 History of Presen t illness Narrative Images from the original note were not included. Follow Up Visit Chief Complaint Fabi Quinteros is a 32 year old female who presents today for follow up office visit. Patient presents with: Right Knee - Post Op, Established Patient, Follow Up History of Present Illness PAIN EVALUATION 06/29/2022 0838 Pain Level: 3 Pain Location: Knee-Right Description: Aching;Dull Frequency: Continuous Intervention/Comfort measure: Medication;Cold naprosyn prn Comments: PT currently HPI: Fabi Quinteros is a 32 year old female for a follow up visit right knee arthroscopy. Pain history is noted as above. In PT, clicking, snapping, popping with deep knee squats at PT, no recurrent swelling ,no calf pain or other concerns.Patient aware and in agreement of plan. All questions answered. Is there any overall improvement in your condition? Yes, Any new injury, since being seen last: No REVIEW OF SYMPTOMS: Patient did not have, and does not currently have, any weight loss, malaise, fever, chills, headache, chest pain, chest pressure, palpitations, cough, shortness of breath, orthopnea, paroxsymal nocturnal dyspnea, nausea, vomiting, diarrhea, constipation, melena, hematochezia, urinary difficulties, prolonged bleeding, easily bruising, heat or cold intolerance, new onset joint pain or swelling, new onset extremity weakness or numbness, new onset auditory or visual disturbances, lightheadedness, dizziness, partial loss of consciousness or full loss of consciousness. Current Outpatient Medications Medication Sig naproxen (NAPROSYN) 500 mg tablet Take 500 mg by mouth twice daily as needed. oxyCODONE-acetaminophen (PERCOCET) 5-325 mg tablet Take 1 tablet by mouth every 6 hours as needed for pain. oxyCODONE-acetaminophen (PERCOCET) 5-325 mg tablet Take 1 tablet by mouth every 6 hours as needed for pain. busPIRone (BUSPAR) 7.5 mg tablet Take 7.5 mg by mouth twice daily. levonorgestrel (MIRENA INTRAUTERINE) by INTRAUTERINE route. albuterol HFA (PROVENTIL HFA, VENTOLIN HFA) 90 mcg/actuation inhaler Inhale 2 Puffs as instructed as needed. sucralfate (CARAFATE) 1 gram tablet Take 1 tablet by mouth four times daily. (Patient taking differently: Take 1 g by mouth as needed.) pantoprazole DR (PROTONIX) 40 mg tablet Take 40 mg by mouth once daily. montelukast (SINGULAIR) 10 mg tablet Take 10 mg by mouth daily at bedtime. CALCIUM CARBONATE (TUMS ORAL) Take by mouth as needed. No current facility-administered medications for this visit. Physical Exam Vitals: Ht 5' 7 (1.70m) Wt 177 lb (80.3kg) LMP 11/12/2018 BMI 27.72 kg/(m^2). Psych: Pleasant, good affect and mood General Appearance: Well appearing, alert, in no acute distress, well-hydrated, well nourished.. Skin: Skin color, texture, turgor normal, no suspicious rashes or lesions. Peripheral Pulses: Normal. Neurologic: Gait normal. Reflexes normal and symmetric. Sensation grossly intact.. Lymph Nodes: No cervical lymphadenopathy, No supraclavicular lymphadenopathy, No axillary lymphadenopathy., and No inguinal lymphadenopathy.. Respiratory: No recent pulmonary infection, hemoptysis, chronic cough, or shortness of breath at rest Rheumatologic: Joint deformities: right knee pain Right Knee Exam Tenderness The patient is experiencing tenderness in the medial retinaculum and lateral retinaculum. Range of Motion Extension: normal Flexion: normal Tests Pb: Anterior - negative Posterior - negative Drawer: Anterior - negative Posterior - negative Other Erythema: absent Scars: present Sensation: normal Pulse: present Swelling: none Comments: Atrophy right knee Left Knee Exam Left knee exam is normal. Muscle Strength The patient has normal left knee strength. Tenderness The patient is experiencing no tenderness. Range of Motion Extension: normal Flexion: normal Tests Pb: Anterior - negative Posterior - negative Drawer: Anterior - negative Posterior - negative Other Erythema: absent Sensation: normal Pulse: present Swelling: none Comments: Neg homans bilaterally Assessment and Plan Radiographs: No imaging to review. Impression: Encounter Diagnosis ICD-10-CM 1. 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 H/O arthroscopic knee surgery Z98.890 Today, in detail, through a thorough evaluation, we discussed possible etiologies of pain and our plans for further diagnostic and therapeutic interventions. We discussed strategies for decreasing pain and improving strength, stability and motion. Patient's questions were answered in detailed. Patient verbalizes understanding and agrees with the treatment plan as discussed. If not improved at next visit will inject scar tissue med/lat with kenalog Ok to start back jogging Ok to advance strengthening, work on proprioception F/u 6 weeks Wean out of PT, do on own at own pace Patient aware and in agreement of plan. All questions answered. Jaylene Martínez DO documented in this encounter [facility] 05-16-2022 Note HNO ID: [id number] Author: Jaylene Martínez DO Service: ? Author Type: Physician Type: Progress Notes Filed: 05/18/2022 8:39 AM Note Text: Follow Up Visit Chief Complaint Fabi Quinteros is a 32 year old female who presents today for follow up office visit. Patient presents with: Right Knee - Knee Pain, Post Op History of Present Illness PAIN EVALUATION 05/16/2022 1050 Pain Level: 1 Pain Location: Knee-Right Description: Aching;Sore;Dull Duration Amount of Time: ? DOS: 05/01/22 Frequency: Intermittent Intervention/Comfort measure: Reposition;Relaxation;Medicatio n;Cold HPI: Fabi Quinteros is a 32 year old female for a follow up visit S/P Right knee extensive synovectomy, posterior medial lateral tibial plateau chondroplasty. Patient states she is doing well, some pain with certain knee movements. Pain history is noted as above. Denies calf pain, numbness, tingling, fever, chills or other constitutional symptoms. Is there any overall improvement in your condition? Yes, decrease in pain Any new injury, since being seen last: No REVIEW OF SYMPTOMS: Patient did not have, and does not currently have, any weight loss, malaise, fever, chills, headache, chest pain, chest pressure, palpitations, cough, shortness of breath, orthopnea, paroxsymal nocturnal dyspnea, nausea, vomiting, diarrhea, constipation, melena, hematochezia, urinary difficulties, prolonged bleeding, easily bruising, heat or cold intolerance, new onset joint pain or swelling, new onset extremity weakness or numbness, new onset auditory or visual disturbances, lightheadedness, dizziness, partial loss of consciousness or full loss of consciousness. Current Outpatient Medications Medication Sig - oxyCODONE-acetaminophen (PERCOCET) 5-325 mg tablet Take 1 tablet by mouth every 6 hours as needed for pain. - oxyCODONE-acetaminophen (PERCOCET) 5-325 mg tablet Take 1 tablet by mouth every 6 hours as needed for pain. - busPIRone (BUSPAR) 7.5 mg tablet Take 7.5 mg by mouth twice daily. - levonorgestrel (MIRENA INTRAUTERINE) by INTRAUTERINE route. - albuterol HFA (PROVENTIL HFA, VENTOLIN HFA) 90 mcg/actuation inhaler Inhale 2 Puffs as instructed as needed. - sucralfate (CARAFATE) 1 gram tablet Take 1 tablet by mouth four times daily. (Patient taking differently: Take 1 g by mouth as needed. ) - pantoprazole DR (PROTONIX) 40 mg tablet Take 40 mg by mouth once daily. - montelukast (SINGULAIR) 10 mg tablet Take 10 mg by mouth daily at bedtime. - CALCIUM CARBONATE (TUMS ORAL) Take by mouth as needed. No current facility-administered medications for this visit. Physical Exam Vitals: LMP 11/12/2018 Psych: Pleasant, good affect and mood General Appearance: Well appearing, alert, in no acute distress, well-hydrated, well nourished.. Skin: Skin color, texture, turgor normal, no suspicious rashes or lesions. Peripheral Pulses: Normal. Neurologic: Gait normal. Reflexes normal and symmetric. Sensation grossly intact.. Lymph Nodes: No cervical lymphadenopathy, No supraclavicular lymphadenopathy, No axillary lymphadenopathy. and No inguinal lymphadenopathy.. Respiratory: No recent pulmonary infection, hemoptysis, chronic cough, or shortness of breath at rest Rheumatologic: Joint deformities: Right knee pain Right Knee Exam Right knee exam is normal. Muscle Strength The patient has normal right knee strength. Tenderness The patient is experiencing no tenderness. Range of Motion Extension: normal Flexion: normal Tests Pb: Anterior - negative Posterior - negative Drawer: Anterior - negative Posterior - negative Other Erythema: absent Scars: present Sensation: normal Pulse: present Swelling: mild Left Knee Exam Left knee exam is normal. Muscle Strength The patient has normal left knee strength. Tenderness The patient is experiencing no tenderness. Range of Motion Extension: normal Flexion: normal Tests Pb: Anterior - negative Posterior - negative Drawer: Anterior - negative Posterior - negative Other Erythema: absent Sensation: normal Pulse: present Swelling: none Comments: Neg homans bilaterally Assessment and Plan Radiographs: I have reviewed the images with the patient and family. 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 We discussed strategies for decreasing pain and improving strength, stability and motion. Patient's questions were answered in detailed. Patient verbalizes understanding and agrees with the treatment plan as discussed. Doing well from postop standpoint, slight swelling c/w synovectomy Follow up in 4 weeks Call with increased pain or issues, PT to start and progress as tolerated [facility] 05-16-2022 History of Presen t illness Narrative Images from the original note were not included. Follow Up Visit Chief Complaint Fabi Quinteros is a 32 year old female who presents today for follow up office visit. Patient presents with: Right Knee - Knee Pain, Post Op History of Present Illness PAIN EVALUATION 05/16/2022 1050 Pain Level: 1 Pain Location: Knee-Right Description: Aching;Sore;Dull Duration Amount of Time: DOS: 05/01/22 Frequency: Intermittent Intervention/Comfort measure: Reposition;Relaxation;Medicatio n;Cold HPI: Fabi Quinteros is a 32 year old female for a follow up visit S/P Right knee extensive synovectomy, posterior medial lateral tibial plateau chondroplasty. Patient states she is doing well, some pain with certain knee movements. Pain history is noted as above. Denies calf pain, numbness, tingling, fever, chills or other constitutional symptoms. Is there any overall improvement in your condition? Yes, decrease in pain Any new injury, since being seen last: No REVIEW OF SYMPTOMS: Patient did not have, and does not currently have, any weight loss, malaise, fever, chills, headache, chest pain, chest pressure, palpitations, cough, shortness of breath, orthopnea, paroxsymal nocturnal dyspnea, nausea, vomiting, diarrhea, constipation, melena, hematochezia, urinary difficulties, prolonged bleeding, easily bruising, heat or cold intolerance, new onset joint pain or swelling, new onset extremity weakness or numbness, new onset auditory or visual disturbances, lightheadedness, dizziness, partial loss of consciousness or full loss of consciousness. Current Outpatient Medications Medication Sig oxyCODONE-acetaminophen (PERCOCET) 5-325 mg tablet Take 1 tablet by mouth every 6 hours as needed for pain. oxyCODONE-acetaminophen (PERCOCET) 5-325 mg tablet Take 1 tablet by mouth every 6 hours as needed for pain. busPIRone (BUSPAR) 7.5 mg tablet Take 7.5 mg by mouth twice daily. levonorgestrel (MIRENA INTRAUTERINE) by INTRAUTERINE route. albuterol HFA (PROVENTIL HFA, VENTOLIN HFA) 90 mcg/actuation inhaler Inhale 2 Puffs as instructed as needed. sucralfate (CARAFATE) 1 gram tablet Take 1 tablet by mouth four times daily. (Patient taking differently: Take 1 g by mouth as needed. ) pantoprazole DR (PROTONIX) 40 mg tablet Take 40 mg by mouth once daily. montelukast (SINGULAIR) 10 mg tablet Take 10 mg by mouth daily at bedtime. CALCIUM CARBONATE (TUMS ORAL) Take by mouth as needed. No current facility-administered medications for this visit. Physical Exam Vitals: LMP 11/12/2018 Psych: Pleasant, good affect and mood General Appearance: Well appearing, alert, in no acute distress, well-hydrated, well nourished.. Skin: Skin color, texture, turgor normal, no suspicious rashes or lesions. Peripheral Pulses: Normal. Neurologic: Gait normal. Reflexes normal and symmetric. Sensation grossly intact.. Lymph Nodes: No cervical lymphadenopathy, No supraclavicular lymphadenopathy, No axillary lymphadenopathy. and No inguinal lymphadenopathy.. Respiratory: No recent pulmonary infection, hemoptysis, chronic cough, or shortness of breath at rest Rheumatologic: Joint deformities: Right knee pain Right Knee Exam Right knee exam is normal. Muscle Strength The patient has normal right knee strength. Tenderness The patient is experiencing no tenderness. Range of Motion Extension: normal Flexion: normal Tests Pb: Anterior - negative Posterior - negative Drawer: Anterior - negative Posterior - negative Other Erythema: absent Scars: present Sensation: normal Pulse: present Swelling: mild Left Knee Exam Left knee exam is normal. Muscle Strength The patient has normal left knee strength. Tenderness The patient is experiencing no tenderness. Range of Motion Extension: normal Flexion: normal Tests Pb: Anterior - negative Posterior - negative Drawer: Anterior - negative Posterior - negative Other Erythema: absent Sensation: normal Pulse: present Swelling: none Comments: Neg homans bilaterally Assessment and Plan Radiographs: I have reviewed the images with the patient and family. 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 We discussed strategies for decreasing pain and improving strength, stability and motion. Patient's questions were answered in detailed. Patient verbalizes understanding and agrees with the treatment plan as discussed. Doing well from postop standpoint, slight swelling c/w synovectomy Follow up in 4 weeks Call with increased pain or issues, PT to start and progress as tolerated documented in this encounter [facility] 05-01-2022 Note HNO ID: [id number] Author: Sherrill Rojas APRN.CRNA Service: Anesthesiology Author Type: Nurse Sports Information Director Type: Anesthesia Procedure Notes Filed: 05/01/2022 10:33 AM Note Text: ANESTHESIOLOGY PROCEDURE NOTE Airway General Information Procedure Start Time/Medication Administration: 05/01/2022 10:25 AM Patient location during procedure: OR Timeout Performed Pre-procedure: timeout performed Consent Obtained: Yes Patient identity confirmed: arm band and patient Staffing AEROGRAPHER: Sherrill Rojas APRN.AEROGRAPHER Indications and Patient Condition Preoxygenated: yes Patient position: sniffing Indications for airway management: anesthesia anesthesia circuit Method: asleep Final Airway Details Final airway type: supraglottic airway Number of attempts at approach: 1 Final Supraglottic Airway: i-gel Size 4 Seal Adequate: yes Comments Easy, atraumatic x 1 SIGNATURE: Sherrill Rojas APRN.AEROGRAPHER PATIENT NAME: Fabi Quinteros DATE: May 01, 2022 TIME: 10:33 AM CSN: [id number] [facility] documented as of this encounter (statuses as of 05/18/2022) [facility]06-29-2022 History of Past illness Narrative* Problem Noted Date Resolved Date Plica of knee, right 2022 05/01/2022 Hoffa's syndrome 2022 05/01/2022 RUQ pain 01/23/2016 2022 Bilious vomiting with nausea 01/23/2016 documented as of this encounter (statuses as of 05/28/2022) [facility] History of Past illness Narrative* Problem Noted Date Resolved Date Plica of knee, right 2022 05/01/2022 Hoffa's syndrome 2022 05/01/2022 RUQ pain 01/23/2016 2022 Bilious vomiting with nausea 01/23/2016 documented as of this encounter (statuses as of 06/29/2022) [facility]06-29-2022 Instructions* Patient Instructions* Jeannie Islsa APRN.SALESPERSON WOMEN'S HATS - 2022 1:00 PM EDT PATIENT PREOPERATIVE INSTRUCTIONS Jaylene Martínez has scheduled you for your procedure at this surgery center: [facility]: [phone] -- [address] [facility] [address] [facility] [address]. Please read below carefully for your personalized instructions. Dietary Restrictions: - No solid food after midnight. - You may have 12 ounces of clear liquids (water, clear juices such as apple juice or gatorade, carbonated beverages, clear tea, black coffee, jello) until 2 hours before scheduled arrival at facility. - Do not drink any alcohol after midnight the night before your surgery. Medications: Unless instructed differently below, stay on all of your medications until your surgery. Approved medications to take the morning of surgery with a sip of water: Albuterol (if needed), Buspirone and Protonix If you start any new medications after today's visit, please contact the surgeon's office. Blood Thinning Medications: - Stop NSAIDS (Ibuprofen, Advil, Aleve, Motrin, Celebrex, Mobic, etc.) 7 days before surgery, as directed by your surgeon. - Stop Aspirin 7 days before surgery, as directed by your surgeon. - Stop Vitamin E, ALL multi-vitamins, herbals and dietary supplements 7 days before surgery. - You may take Tylenol (Acetaminophen) or any of your pain medications that do not contain aspirin or NSAIDS as needed. Important Reminders: - If you are prescribed inhalers for breathing, continue using them. - Candy, mints, and tobacco products are NOT permitted the morning of surgery. - Hearing aids, dentures and glasses may be worn the morning of surgery. - NO jewelry, body piercings, makeup, hairpins or contacts are to be worn the day of surgery. If you develop symptoms such as a fever, cold, or flu, or have other changes to your health within TWO DAYS of scheduled surgery or the morning of surgery, please contact the surgery center above. Personal Belongings: -Please have photo ID and insurance cards. -If you do not have a copy of advance directives on file with us, please bring a copy with you on the day of surgery. - Leave ALL valuables and money at home or with family members. For Outpatient Procedures: - YOU MUST HAVE A RESPONSIBLE OPERATOR ENGINEER TAKE YOU HOME. A SOAPING MACHINE BACK TENDER OR CDL DRIVER CANNOT BE MADE A RESPONSIBLE OPERATOR ENGINEER. - We recommend that a responsible person stays with you overnight to take care of you. - You cannot stay in a hotel alone after outpatient surgery. You will not be permitted to have yoursurgery, if you do not have someone to take care of you. Arrival Time for Surgery: - The Surgery Center or hospital where you are having surgery will call the afternoon before surgery (or Saturday for Saturday surgery) with a scheduled arrival time. - If you have not heard by 4 pm, please contact the surgery center above. Please be aware that emergency situations arise, which may delay or change your surgical time. If this happens, we will notify you as soon as possible and regret any inconvenience. If you already have an Advance Directive, please fax a copy to [phone] or email to for it to be added to your chart. If you do not have an Advance Directive, you can find the appropriate form and more information at [email or web address]. We recommend that youcomplete the Advance Directive form found on the website and bring it with you the day of your surgery. It can be witnessed and scanned into your chart that day. Jeannie Islas APRN.CNP [facility] History and physical note * Jeannie Islas APRN.CNP - 2022 12:47 PM EDT HISTORY AND PHYSICAL EXAMINATION SERVICE DATE: 2022 SERVICE TIME: 12:47 PM PRIMARY CARE PHYSICIAN: Leroy Zayas DO REASON FOR VISIT: Fabi Quinteros is a 32 year old female who is scheduled for ARTHROSCOPY KNEE SYNOVECTOMY MAJOR at the request of Dr. Jaylene Martínez for consultation. My final recommendationwill be communicated back to the requesting physician by way of shared medical record or letter. Subjective The patient has the following: ACTIVE PROBLEM LIST Plica of Knee, Right Hoffa's Syndrome (Hcc) History of Peptic Ulcer Disease Anxiety COVID-19 Immunization Status Overdue - COVID-19 VACCINE (1) Overdue - never done No completion, postpone, frequency change, or communication history exists for this topic. Patient reports being fully vaccinated against COVID-19. Patient reports a prior COVID-19 infection, with an infection date of 09/2021. CHIEF COMPLAINT: Pre-Op Exam HPI: 32 year old female presents with plica of right knee. Patient states the knee has been bothersome for the past year and a half. She was told she tore the plica but does not remember a specific injury. She runs and does crossfit for exercise but has had to quit crossfit because she is unable todo flexing motions like lunges. The knee has also started to become bothersome when sitting for a long period of time. Pain is typically aching in sensation but she can have occasional sharp pain with activity. The pain has occasionally interfered with sleep. She denies any current alleviating factors. She worked with PT but did not have any improvement and felt ROM was worsening. REVIEW OF SYSTEMS: General: No weight loss, malaise or fevers. Neurological: No history of TIA's, stroke, FIRST BREAKER FEEDER tumor, impaired sensorium, hemiplegia, paraplegia orquadraplegia. No neurological symptoms or problems. Respiratory: Positive for: prior COVID-19 infection. Date of COVID-19 infection: 09/2021. Negative for: asthma, bronchitis, COPD, current cough, dyspnea, home oxygen, orthopnea, pneumonia within 6 weeks, tobacco use and obstructive sleep apnea. Cardiovascular: No history of HTN requiring medication, no history of angina, CHF, OR, cardiac surgery or stents. Denies rest pain, gangrene or revascularization/amputation for PVD. No history of cardiovascular symptoms or problems. GI: Positive for: PUD (Stable on Rx) Negative for: abdominal pain, dysphagia, diverticulitis, GERD, GI bleed <30 days, heartburn, hepatitis, irritable bowel syndrome, inflammatory bowel disease, liver disease, nausea and vomiting. : No history of dysuria, frequency or incontinence, stones or chronic kidney disease. No difficulty urinating, nocturia > 1 time per night or hematuria. INSPECTOR BALANCE BRIDGE: Negative for abnormal vaginal bleeding, abnormal vaginal discharge. Endocrine: No history of diabetes. Has not taken steroids within the past 30 days. No history of endocrinological symptoms or problems. Hematology: No history of bleeding or clotting disorder. Patient is not taking anti-coagulation or platelet medications. No history of hematological symptoms or problems. Oncology: No history of CA metastasis, chemo within 30 days, or radiotherapy within 90 days. No history of oncological symptoms or problems. Psych: Positive for: anxiety (Stable on Rx, following with PCP). Negative for: depression. Musculoskeletal: Positive for: joint pain (SEE HPI). Negative for: swelling. Skin: Negative for lesions, rash and itching. PAST MEDICAL HISTORY Diagnosis Date Acute pharyngitis Anxiety Cough History of peptic ulcer disease PAST SURGICAL HISTORY Procedure Laterality Date EGD 2016 LAPS SURG CHOLECYSTECTOMY W/CHOLANGIOGRAPHY 2017 FAMILY HISTORY Problem Relation Age of Onset GI Mother Colitis None Other Social History Tobacco Use Smoking status: Never Smoker Smokeless tobacco: Never Used Vaping Use Vaping Use: Never used Substance Use Topics Alcohol use: Yes Alcohol/week: 0.0 - 2.0 standard drinks Drug use: No Prior to Admission medications as of 04/18/22 1258 Medication Sig Last Dose Taking busPIRone (BUSPAR) 7.5 mg tablet Take 7.5 mg by mouth twice daily. Taking Yes levonorgestrel (MIRENA INTRAUTERINE) by INTRAUTERINE route. Taking Yes albuterol HFA (PROVENTIL HFA, VENTOLIN HFA) 90 mcg/actuation inhaler Inhale 2 Puffs as instructed as needed. Taking Yes sucralfate (CARAFATE) 1 gram tablet Take 1 tablet by mouth four times daily. Patient taking differently: Take 1 g by mouth as needed. Taking Differently Yes pantoprazole DR (PROTONIX) 40 mg tablet Take 40 mg by mouth once daily. Taking Yes montelukast (SINGULAIR) 10 mg tablet Take 10 mg by mouth daily at bedtime. Taking Yes CALCIUM CARBONATE (TUMS ORAL) Take by mouth as needed. Taking Yes No medication comments found. ALLERGIES Allergen Reactions Ciprofloxacin Rash, Hives, Other: See Comments rapid heart beat Levaquin [Levofloxa* Other: See Comments Prednisone Other: See Comments headache Objective PHYSICAL EXAM: General: alert and oriented and healthy appearance. Pertinent negatives noted - not distressed. Skin: normal color, no rash or lesions. HEENT: pupils equal round and pupils reactive to light. Pertinent negatives noted - no carotid bruit. Cardiovascular: regular rate and rhythm, normal S1 and S2, no rub, murmurs, or gallop. Respiratory: normal breath sounds, no wheezes or crackles. No chest wall deformity or tenderness. Abdomen: soft. Pertinent negatives noted - no hernia, no mass, not rigid and not tender. Extremities: no deformity, no edema or tenderness, no joint swelling or clubbing. Neurological: normal cognition and motor skills. Gait normal. No weakness or sensory deficit. PAIN ASSESSMENT: Pain Pain Level: 3 Pain Location: Knee-Right Description: Radiating Duration Amount of Time: 1.5 Duration Units: Years Frequency: Continuous Intervention/Comfort measure: Cold VITALS: BP 126/78 Pulse 64 Temp (Src) 98.3 (Temporal) Resp 16 Ht 5' 7 (1.70m) Wt 177 lb (80.3kg) SpO2 97% LMP 11/12/2018 BMI 27.72 kg/(m^2). Diagnostic tests reviewed for today's visit: Lab Value Units Date High Low HB No results within date range. HCT No results within date range. WBC No results within date range. PLT No results within date range. NA No results within date range. K No results within date range. GLUC No results within date range. BUN No results within date range. CREAT No results within date range. PTSEC No results within date range. INR No results within date range. APTT No results within date range. ALT No results within date range. AST No results within date range. TBILI No results within date range. TSH No results within date range. Lab Value Units Date High Low HCGQT No results within date range. UHCG No results within date range. HCG, BODY* No results within date range. Lab Value Units Date High Low ABORHD No results within date range. ABSCREEN No results within date range. No results found for: HBA1C No results found for this or any previous visit (from the past 8760 hour(s)). No results found for this or any previous visit (from the past 10814 hour(s)). Assessment History of peptic ulcer disease Assessment: Currently stable on Protonix. Denies heartburn or abdominal pain. Anxiety Assessment: Currently stable on Rx, following with PCP. [place] Activity Status Index: METS: Run a short distance (8.00 METs) DASI Score: 8 Patient denies any chest pain or undue shortness of breath with the above physical activity. Clinical Frailty Scale: 1. Very fit STOP-Bang Score: Denies snoring loudly Denies feeling tired, fatigued, or sleepy during the daytime Has not been observed to stop breathing or choking/gasping during sleep Denies having high blood pressure BMI less than or equal to 35 kg/m^2 Patient 50 years old or younger Does not have a large neck Non-male patient STOP-Bang Score: 0 [id number] Score: Age: <65 Sex: female CHF history: No Hypertension history: No Stroke/TIA/thromboembolism history: No Vascular disease history: No Diabetes history: No [id number] Score: 1 ASA Class: 2 ANESTHESIA FINDINGS: Intubation History: No history of difficult intubation. No abnormal airway history Significant Anesthesia Considerations: none Airway History: No history of difficult airway No abnormal airway history I - PHYSICAL EVALUATION AIRWAY Tracheostomy tube not present Mallampati: I. TM distance: >3 FB. Neck ROM: full ROM without neurological symptoms. Mouth opening: adequate. Short neck: no. Thick neck: no DENTAL Dental findings: teeth intact. II - ANESTHESIA PLAN ASA Score: 2 Prepared for Surgery: optimally prepared for surgery. CONSULTS: Patient does not require consults for optimization at this time Planned Anesthetic: anesthesia choice The Following Tests/Procedures Have Been Initiated: Orders Placed This Encounter busPIRone (BUSPAR) 7.5 mg tablet Sig: Take 7.5 mg by mouth twice daily. levonorgestrel (MIRENA INTRAUTERINE) Sig: by INTRAUTERINE route. albuterol HFA (PROVENTIL HFA, VENTOLIN HFA) 90 mcg/actuation inhaler Sig: Inhale 2 Puffs as instructed as needed. Instructions Given to Patient: Instructions located in the after visit summary. Patient given verbal and written preop instructions and voices comprehension and compliance. SIGNATURE: Jeannie Islas APRN.CNP PATIENT NAME: Fabi Quinteros DATE: 2022 TIME: 12:47 PM PAGER/CONTACT #: documented in this encounterC[facility] NoteHNO ID: [id number] Author: Jaylene Martínez, DO Service: ? Author Type: Physician Type: Progress Notes Filed: 03/07/2022 9:47 AM Note Text: Follow Up Visit Chief Complaint Fabi Quinteros is a 31 year old female who presents today for follow up office visit. Patient presents with: Right Knee - Follow Up, Knee Pain History of Present Illness PAIN EVALUATION 03/07/2022 0915 Pain Level: 5 Pain Location: Knee-Right Description: Aching;Dull;Throbbing;Sore Duration Amount of Time: ? ongoing Frequency: Continuous Intervention/Comfort measure: Reposition;Relaxation;Other: See comment;Medication;Cold cortisone injection 02/21/22 with no relief HPI: Fabi Quinteros is a 31 year old female for a follow up visit right knee pain. Patient had cortisone injection last visit that gave no relief. Continues to use ice, HEP, brace PRN. Pain history is noted as above. Denies calf pain, numbness, tingling, fever, chills or other constitutional symptoms. Is there any overall improvement in your condition? No Any new injury, since being seen last: No REVIEW OF SYMPTOMS: Patient did not have, and does not currently have, any weight loss, malaise, fever, chills, headache, chest pain, chest pressure, palpitations, cough, shortness of breath, orthopnea, paroxsymal nocturnal dyspnea, nausea, vomiting, diarrhea, constipation, melena, hematochezia, urinary difficulties, prolonged bleeding, easily bruising, heat or cold intolerance, new onset joint pain or swelling, new onset extremity weakness or numbness, new onset auditory or visual disturbances, lightheadedness, dizziness, partial loss of consciousness or full loss of consciousness. Current Outpatient Medications Medication Sig - dicyclomine (BENTYL) 20 mg tablet Take 1 tablet by mouth four times daily as needed. - sucralfate (CARAFATE) 1 gram tablet Take 1 tablet by mouth four times daily. - meloxicam (MOBIC) 15 mg tablet Take 1 tablet by mouth once daily. - pantoprazole DR (PROTONIX) 40 mg tablet Take 40 mg by mouth once daily. - hyoscyamine sublingual (LEVSIN/SL) 0.125 mg Dissolve 1 tablet under the tongue every 4 hours as needed (abdominal pain). - montelukast (SINGULAIR) 10 mg tablet Take 10 mg by mouth daily at bedtime. - CALCIUM CARBONATE (TUMS ORAL) Take by mouth as needed. No current facility-administered medications for this visit. Physical Exam Vitals: [facility] 11/12/2018 Psych: Pleasant, good affect and mood General Appearance: Well appearing, alert, in no acute distress, well-hydrated, well nourished.. Skin: Skin color, texture, turgor normal, no suspicious rashes or lesions. Peripheral Pulses: Normal. Neurologic: Gait normal. Reflexes normal and symmetric. Sensation grossly intact.. Lymph Nodes: No cervical lymphadenopathy, No supraclavicular lymphadenopathy, No axillary lymphadenopathy. and No inguinal lymphadenopathy.. Respiratory: No recent pulmonary infection, hemoptysis, chronic cough, or shortness of breath at rest Rheumatologic: Joint deformities: Right knee pain Right Knee Exam Tenderness The patient is experiencing tenderness in the medial joint line, medial retinaculum and lateral retinaculum. Range of Motion Extension: normal Flexion: normal Tests Pb: Anterior - negative Posterior - negative Drawer: Anterior - negative Posterior - negative Other Erythema: absent Sensation: normal Pulse: present Swelling: none Comments: Pos hoffas syndrome Left Knee Exam Left knee exam is normal. Muscle Strength The patient has normal left knee strength. Tenderness The patient is experiencing no tenderness. Range of Motion Extension: normal Flexion: normal Tests Pb: Anterior - negative Posterior - negative Drawer: Anterior - negative Posterior - negative Other Erythema: absent Sensation: normal Pulse: present Swelling: none Comments: Neg homans bilaterally Assessment and Plan Radiographs: I have independently reviewed films and my findings are the same. 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 Risks including but not limited to blood loss, blood clot, infection, neurovascular injury, failure of procedure, need for revision operation, loss of life and loss of limb. Patient aware of risks and benefits and agrees to proceed with written consent for surgical intervention. Today, in detail, through a thorough evaluation, we discussed possible etiologies of pain and our plans for further diagnostic and therapeutic interventions. We discussed strategies for decreasing pain and improving strength, stability and motion. Patient's questions were answered in detailed. Patient verbalizes understanding and agrees (more content not included)...[facility]05-18-2022 History of Present illness Narrative* Marlena Mauricio, DO - 03/07/2022 9:18 AM EDT Images from the original note were not included. Follow Up Visit Chief Complaint Fabi Quinteros is a 31 year old female who presents today for follow up office visit. Patient presents with: Right Knee - Follow Up, Knee Pain History of Present Illness PAIN EVALUATION 03/07/2022 0915 Pain Level: 5 Pain Location: Knee-Right Description: Aching;Dull;Throbbing;Sore Duration Amount of Time: ongoing Frequency: Continuous Intervention/Comfort measure: Reposition;Relaxation;Other: See comment;Medication;Cold cortisone injection 02/21/22 with no relief HPI: Fabi Quinteros is a 31 year old female for a follow up visit right knee pain. Patient had cortisone injection last visit that gave no relief. Continues to use ice, HEP, brace PRN. Pain history is noted as above. Denies calf pain, numbness, tingling, fever, chills or other constitutional symptoms. Is there any overall improvement in your condition? No Any new injury, since being seen last: No REVIEW OF SYMPTOMS: Patient did not have, and does not currently have, any weight loss, malaise, fever, chills, headache, chest pain, chest pressure, palpitations, cough, shortness of breath, orthopnea, paroxsymal nocturnal dyspnea, nausea, vomiting, diarrhea, constipation, melena, hematochezia, urinary difficulties, prolonged bleeding, easily bruising, heat or cold intolerance, new onset joint pain or swelling, newonset extremity weakness or numbness, new onset auditory or visual disturbances, lightheadedness, dizziness, partial loss of consciousness or full loss of consciousness. Current Outpatient Medications Medication Sig dicyclomine (BENTYL) 20 mg tablet Take 1 tablet by mouth four times daily as needed. sucralfate (CARAFATE) 1 gram tablet Take 1 tablet by mouth four times daily. meloxicam (MOBIC) 15 mg tablet Take 1 tablet by mouth once daily. pantoprazole DR (PROTONIX) 40 mg tablet Take 40 mg by mouth once daily. hyoscyamine sublingual (LEVSIN/SL) 0.125 mg Dissolve 1 tablet under the tongue every 4 hours as needed (abdominal pain). montelukast (SINGULAIR) 10 mg tablet Take 10 mg by mouth daily at bedtime. CALCIUM CARBONATE (TUMS ORAL) Take by mouth as needed. No current facility-administered medications for this visit. Physical Exam Vitals: [facility] 11/12/2018 Psych: Pleasant, good affect and mood General Appearance: Well appearing, alert, in no acute distress, well-hydrated, well nourished.. Skin: Skin color, texture, turgor normal, no suspicious rashes or lesions. Peripheral Pulses: Normal. Neurologic: Gait normal. Reflexes normal and symmetric. Sensation grossly intact.. Lymph Nodes: No cervical lymphadenopathy, No supraclavicular lymphadenopathy, No axillary lymphadenopathy. and No inguinal lymphadenopathy.. Respiratory: No recent pulmonary infection, hemoptysis, chronic cough, or shortness of breath at rest Rheumatologic: Joint deformities: Right knee pain Right Knee Exam Tenderness The patient is experiencing tenderness in the medial joint line, medial retinaculum and lateral retinaculum. Range of Motion Extension: normal Flexion: normal Tests Pb: Anterior - negative Posterior - negative Drawer: Anterior - negative Posterior - negative Other Erythema: absent Sensation: normal Pulse: present Swelling: none Comments: Pos hoffas syndrome Left Knee Exam Left knee exam is normal. Muscle Strength The patient has normal left knee strength. Tenderness The patient is experiencing no tenderness. Range of Motion Extension: normal Flexion: normal Tests Pb: Anterior - negative Posterior - negative Drawer: Anterior - negative Posterior - negative Other Erythema: absent Sensation: normal Pulse: present Swelling: none Comments: Neg homans bilaterally Assessment and Plan Radiographs: I have independently reviewed films and my findings are the same. 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 Risks including but not limited to blood loss, blood clot, infection, neurovascular injury, failure of procedure, need forrevision operation, loss of life and loss of limb. Patient aware of risks and benefits and agrees to proceed with written consent for surgical intervention. Today, in detail, through a thorough evaluation, we discussed possible etiologies of pain and our plans for further diagnostic and therapeutic interventions. We discussed strategies for decreasing pain and improving strength, stability and motion. Patient's questions were answered in detailed. Patient verbalizes understanding and agrees with the treatment plan as discussed. documented [facility] NoteHNO ID: [id number] Author: Jaylene Martínez DO Service: ? Author Type: Physician Type: Progress Notes Filed: 03/14/2022 11:15 AM Note Text: Follow Up Visit Chief Complaint Fabi Quinteros is a 31 year old female who presents today for follow up office visit. Patient presents with: Right Knee - Follow Up, Knee Pain History of Present Illness PAIN EVALUATION 02/21/2022 1346 Pain Level: 3 Pain Location: Knee-Right Description: Aching;Dull;Sharp;Shooting;Throbbing Duration Amount of Time: ? ongoing Frequency: Intermittent Intervention/Comfort measure: Reposition;Relaxation;Medication;Cold;Other: See comment cortisone injection HPI: Fabi Quinteros is a 31 year old female for a follow up visit right knee pain. Patient is here for increased pain in her right knee. Now has pain with ADLs. No new injury Pain history is noted as above. Denies calf pain, numbness, tingling, fever, chills or other constitutional symptoms. Is there any overall improvement in your condition? No Any new injury, since being seen last: No REVIEW OF SYMPTOMS: Patient did not have, and does not currently have, any weight loss, malaise, fever, chills, headache, chest pain, chest pressure, palpitations, cough, shortness of breath, orthopnea, paroxsymal nocturnal dyspnea, nausea, vomiting, diarrhea, constipation, melena, hematochezia, urinary difficulties, prolonged bleeding, easily bruising, heat or cold intolerance, new onset joint pain or swelling, new onset extremity weakness or numbness, new onset auditory or visual disturbances, lightheadedness, dizziness, partial loss of consciousness or full loss of consciousness. Current Outpatient Medications Medication Sig - dicyclomine (BENTYL) 20 mg tablet Take 1 tablet by mouth four times daily as needed. - sucralfate (CARAFATE) 1 gram tablet Take 1 tablet by mouth four times daily. - meloxicam (MOBIC) 15 mg tablet Take 1 tablet by mouth once daily. - pantoprazole DR (PROTONIX) 40 mg tablet Take 40 mg by mouth once daily. - hyoscyamine sublingual (LEVSIN/SL) 0.125 mg Dissolve 1 tablet under the tongue every 4 hours as needed (abdominal pain). - montelukast (SINGULAIR) 10 mg tablet Take 10 mg by mouth daily at bedtime. - CALCIUM CARBONATE (TUMS ORAL) Take by mouth as needed. No current facility-administered medications for this visit. Physical Exam Vitals: [facility] 11/12/2018 Psych: Pleasant, good affect and mood General Appearance: Well appearing, alert, in no acute distress, well-hydrated, well nourished.. Skin: Skin color, texture, turgor normal, no suspicious rashes or lesions. Peripheral Pulses: Normal. Neurologic: Gait normal. Reflexes normal and symmetric. Sensation grossly intact.. Lymph Nodes: No cervical lymphadenopathy, No supraclavicular lymphadenopathy, No axillary lymphadenopathy. and No inguinal lymphadenopathy.. Respiratory: No recent pulmonary infection, hemoptysis, chronic cough, or shortness of breath at rest Rheumatologic: Joint deformities: right knee pain Right Knee Exam Tenderness The patient is experiencing tenderness in the lateral retinaculum and medial retinaculum. Range of Motion Extension: normal Flexion: normal Tests Pb: Anterior - negative Posterior - negative Drawer: Anterior - negative Posterior - negative Other Erythema: absent Sensation: normal Pulse: present Swelling: none Comments: Pos hoffa syndrome Left Knee Exam Left knee exam is normal. Muscle Strength The patient has normal left knee strength. Tenderness The patient is experiencing no tenderness. Range of Motion Extension: normal Flexion: normal Tests Pb: Anterior - negative Posterior - negative Drawer: Anterior - negative Posterior - negative Other Erythema: absent Sensation: normal Pulse: present Swelling: none Comments: Neg homans bilaterally Large Joint Arthro/Inj: R knee joint Informed Consent Consent Obtained: Verbal [place] Protocol A moment to CARE was completed. SIGN IN Personnel directly involved with the procedure wore the appropriate PPE. Special Equipment: N/A Patient/Surrogate Stated/Verified: Patient name, Date of , Relevant allergies and Intended procedure TIME OUT Intended patient and procedure match the source document(s). Consent documented and matches the intended procedure. Relevant labs, photos, and/or imaging studies have been reviewed. No correct side/site applicable for marking and visibility. Medications required for procedure verified. Fire risk assessed and interventions discussed. No implant(s) inserted. 02/21/2022 12:42 PM The procedure site was prepped in the usual sterile fashion. Site: R knee joint Medications: 80 mg triamcinolone acetonide 40 mg/mL Anesthetics: 8 mL ropivacaine (PF) 5 mg/mL (0.5 %) Outcome: Tolerated well, no immediate complications Post-injection instructions were reviewed with the patient (more content not included)...[facility] History of Present illness Narrative* Jaylene Martínez, DO - 02/21/2022 1:49 PM EDT Associated Order(s): Large Joint Arthro/Inj: R knee joint Post-Procedure Diagnose(s): Hoffa's knee joint disease (HCC) Images from the original note were not included. Follow Up Visit Chief Complaint Fabi Quinteros is a 31 year old female who presents today for follow up office visit. Patient presents with: Right Knee - Follow Up, Knee Pain History of Present Illness PAIN EVALUATION 02/21/2022 1346 Pain Level: 3 Pain Location: Knee-Right Description: Aching;Dull;Sharp;Shooting;Throbbing Duration Amount of Time: ongoing Frequency: Intermittent Intervention/Comfort measure: Reposition;Relaxation;Medication;Cold;Other: See comment cortisone injection HPI: Fabi Quinteros is a 31 year old female for a follow up visit right knee pain. Patient is herefor increased pain in her right knee. Now has pain with ADLs. No new injury Pain history is noted as above. Denies calf pain, numbness, tingling, fever, chills or other constitutional symptoms. Is there any overall improvement in your condition? No Any new injury, since being seen last: No REVIEW OF SYMPTOMS: Patient did not have, and does not currently have, any weight loss, malaise, fever, chills, headache, chest pain, chest pressure, palpitations, cough, shortness of breath, orthopnea, paroxsymal nocturnal dyspnea, nausea, vomiting, diarrhea, constipation, melena, hematochezia, urinary difficulties, prolonged bleeding, easily bruising, heat or cold intolerance, new onset joint pain or swelling, newonset extremity weakness or numbness, new onset auditory or visual disturbances, lightheadedness, dizziness, partial loss of consciousness or full loss of consciousness. Current Outpatient Medications Medication Sig dicyclomine (BENTYL) 20 mg tablet Take 1 tablet by mouth four times daily as needed. sucralfate (CARAFATE) 1 gram tablet Take 1 tablet by mouth four times daily. meloxicam (MOBIC) 15 mg tablet Take 1 tablet by mouth once daily. pantoprazole DR (PROTONIX) 40 mg tablet Take 40 mg by mouth once daily. hyoscyamine sublingual (LEVSIN/SL) 0.125 mg Dissolve 1 tablet under the tongue every 4 hours as needed (abdominal pain). montelukast (SINGULAIR) 10 mg tablet Take 10 mg by mouth daily at bedtime. CALCIUM CARBONATE (TUMS ORAL) Take by mouth as needed. No current facility-administered medications for this visit. Physical Exam Vitals: [facility] 11/12/2018 Psych: Pleasant, good affect and mood General Appearance: Well appearing, alert, in no acute distress, well-hydrated, well nourished.. Skin: Skin color, texture, turgor normal, no suspicious rashes or lesions. Peripheral Pulses: Normal. Neurologic: Gait normal. Reflexes normal and symmetric. Sensation grossly intact.. Lymph Nodes: No cervical lymphadenopathy, No supraclavicular lymphadenopathy, No axillary lymphadenopathy. and No inguinal lymphadenopathy.. Respiratory: No recent pulmonary infection, hemoptysis, chronic cough, or shortness of breath at rest Rheumatologic: Joint deformities: right knee pain Right Knee Exam Tenderness The patient is experiencing tenderness in the lateral retinaculum and medial retinaculum. Range of Motion Extension: normal Flexion: normal Tests Pb: Anterior - negative Posterior - negative Drawer: Anterior - negative Posterior - negative Other Erythema: absent Sensation: normal Pulse: present Swelling: none Comments: Pos hoffa syndrome Left Knee Exam Left knee exam is normal. Muscle Strength The patient has normal left knee strength. Tenderness The patient is experiencing no tenderness. Range of Motion Extension: normal Flexion: normal Tests Pb: Anterior - negative Posterior - negative Drawer: Anterior - negative Posterior - negative Other Erythema: absent Sensation: normal Pulse: present Swelling: none Comments: Neg homans bilaterally Large Joint Arthro/Inj: R knee joint Informed Consent Consent Obtained: Verbal [place] Protocol A moment to CARE was completed. SIGN IN Personnel directly involved with the procedure wore the appropriate PPE. Special Equipment: N/A Patient/Surrogate Stated/Verified: Patient name, Date of , Relevant allergies and Intended procedure TIME OUT Intended patient and procedure match the source document(s). Consent documented and matches the intended procedure. Relevant labs, photos, and/or imaging studies have been reviewed. No correct side/site applicable for marking and visibility. Medications required for procedure verified. Fire risk assessed and interventions discussed. No implant(s) inserted. 03/07/2022 12:42 PM The procedure site was prepped in the usual sterile fashion. Site: R knee joint Medications: 80 mg triamcinolone acetonide 40 mg/mL Anesthetics: 8 mL ropivacaine (PF) 5 mg/mL (0.5 %) Outcome: Tolerated well, no immediate complications Post-injection instructions were reviewed with the patient and the patient voiced understanding of these instructions. SIGN OUT All specimen containers correctly labeled. All instruments, equipment, possible retained foreign bodies accounted for. Post-procedure follow-up management communicated and Plan of Care Visit completed when applicable Assessment and Plan Radiographs: No imaging to review. Impression: Encounter Diagnosis ICD-10-CM 1. Hamstring tendinitis M76.899 2. Plica of knee, right M67.51 3. 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 We discussed strategies for decreasing pain and improving strength, stability and motion. Patient's questions were answered in detailed. Patient verbalizes understanding and agrees with the treatment plan as discussed. documented in this [facility] NoteHNO ID: [id number] Author: Jaylene Martínez DO Service: ? Author Type: Physician Type: Progress Notes Filed: 09/13/2021 12:08 PM Note Text: Follow Up Visit Chief Complaint Fabi Quinteros is a 31 year old female who presents today for follow up office visit. Patient presents with: Right Knee - Follow Up, Knee Pain History of Present Illness PAIN EVALUATION 09/13/2021 0856 Pain Level: 5 Pain Location: Knee-Right Description: Aching;Dull Duration Amount of Time: ? Ongoing Frequency: Continuous Intervention/Comfort measure: Reposition;Relaxation;Cold HPI: Fabi Quinteros is a 31 year old female for a follow up visit for right knee US results. Pain history is noted as above. Denies calf pain, numbness, tingling, fever, chills or other constitutional symptoms. Is there any overall improvement in your condition? no Any new injury, since being seen last: No REVIEW OF SYMPTOMS: Patient did not have, and does not currently have, any weight loss, malaise, fever, chills, headache, chest pain, chest pressure, palpitations, cough, shortness of breath, orthopnea, paroxsymal nocturnal dyspnea, nausea, vomiting, diarrhea, constipation, melena, hematochezia, urinary difficulties, prolonged bleeding, easily bruising, heat or cold intolerance, new onset joint pain or swelling, new onset extremity weakness or numbness, new onset auditory or visual disturbances, lightheadedness, dizziness, partial loss of consciousness or full loss of consciousness. Current Outpatient Medications Medication Sig - dicyclomine (BENTYL) 20 mg tablet Take 1 tablet by mouth four times daily as needed. - sucralfate (CARAFATE) 1 gram tablet Take 1 tablet by mouth four times daily. - meloxicam (MOBIC) 15 mg tablet Take 1 tablet by mouth once daily. - pantoprazole DR (PROTONIX) 40 mg tablet Take 40 mg by mouth once daily. - hyoscyamine sublingual (LEVSIN/SL) 0.125 mg Dissolve 1 tablet under the tongue every 4 hours as needed (abdominal pain). - montelukast (SINGULAIR) 10 mg tablet Take 10 mg by mouth daily at bedtime. - CALCIUM CARBONATE (TUMS ORAL) Take by mouth as needed. No current facility-administered medications for this visit. Physical Exam Vitals: [facility] 11/12/2018 Psych: Pleasant, good affect and mood General Appearance: Well appearing, alert, in no acute distress, well-hydrated, well nourished.. Skin: Skin color, texture, turgor normal, no suspicious rashes or lesions. Peripheral Pulses: Normal. Neurologic: Gait normal. Reflexes normal and symmetric. Sensation grossly intact.. Lymph Nodes: No cervical lymphadenopathy, No supraclavicular lymphadenopathy, No axillary lymphadenopathy. and No inguinal lymphadenopathy.. Respiratory: No recent pulmonary infection, hemoptysis, chronic cough, or shortness of breath at rest Rheumatologic: Joint deformities: Right knee pain Right Knee Exam Right knee exam is normal. Muscle Strength The patient has normal right knee strength. Tenderness The patient is experiencing no tenderness. Range of Motion Extension: normal Flexion: normal Tests Pb: Anterior - negative Posterior - negative Drawer: Anterior - negative Posterior - negative Other Erythema: absent Sensation: normal Pulse: present Swelling: none Comments: Medial plica- snapping and ttp ttp post hamstrings/medial/distal pa 35 degrees Left Knee Exam Left knee exam is normal. Muscle Strength The patient has normal left knee strength. Tenderness The patient is experiencing no tenderness. Range of Motion Extension: normal Flexion: normal Tests Pb: Anterior - negative Posterior - negative Drawer: Anterior - negative Posterior - negative Other Erythema: absent Sensation: normal Pulse: present Swelling: none Assessment and Plan Radiographs: I have independently reviewed films and my findings are the same. and I have reviewed the images with the patient and family. Impression: Encounter Diagnosis ICD-10-CM 1. Hamstring tendinitis M76.899 2. Plica of knee, right M67.51 3. Chronic pain of right knee M25.561 G89.29 Additional Injections Informed Consent Consent Obtained: Verbal [place] Protocol A moment to CARE was completed. SIGN IN Personnel directly involved with the procedure wore the appropriate PPE. Special Equipment: N/A Patient/Surrogate Stated/Verified: Patient name, Date of , Relevant allergies and Intended procedure TIME OUT Intended patient and procedure match the source document(s). Consent documented and matches the intended procedure. Relevant labs, photos, and/or imaging studies have been reviewed. Correct side/site marked and visible. Medications required for procedure verified. Fire risk assessed and interventions discussed. No implant(s) inserted. 09/13/2021 12:05 PM The procedure site was prepped in the usual sterile fashion. Site: R Distal hamstring tendon Me (more content not included)...[facility]11-04-2021 NoteHNO ID: [id number] Author: Talat Julian APRN.[employer] Service: ? Author Type: Nurse Practitioner Type: Progress Notes Filed: 08/24/2021 3:03 PM Note Text: VIRTUAL VISIT FOLLOW UP I had a virtual visit with Ms. Quinteros today for follow up of abdominal pain. UPDATED HISTORY: Last appt with me 01/2020, hx ulcers Similar symptoms now Last couple weeks Symptoms are worse with eating Abdominal pain, between breast bone and belly button, radiates to chest and back Nothing makes the pain better No heartburn Some nausea in the mornings or when the pain is bad BMs typically daily, some green stools NSAIDs, meloxicam - only took 3 times No other NSAIDs Taking: Pantoprazole 40 mg once daily Sucralfate 1 g QID Hyoscyamine Tums as needed Mylanta as needed PAST MEDICAL HISTORY Diagnosis Date - Acute pharyngitis - Cough PAST SURGICAL HISTORY Procedure Laterality Date - LAP CHOLECYSTECT/CHOLANGIOGRAPHY 2017 FAMILY HISTORY Problem Relation Age of Onset - None Unknown Social History Tobacco Use - Smoking status: Never Smoker - Smokeless tobacco: Never Used Substance Use Topics - Alcohol use: Yes Alcohol/week: 2.0 standard drinks Types: 2 Cans of Beer (12oz) per week - Drug use: No Current Outpatient Medications Medication Sig Dispense Refill - meloxicam (MOBIC) 15 mg tablet Take 1 tablet by mouth once daily. 30 tablet 1 - escitalopram oxalate (LEXAPRO) 20 mg tablet Take 20 mg by mouth once daily. - pantoprazole DR (PROTONIX) 40 mg tablet Take 40 mg by mouth once daily. - hyoscyamine sublingual (LEVSIN/SL) 0.125 mg Dissolve 1 tablet under the tongue every 4 hours as needed (abdominal pain). 60 tablet 1 - montelukast (SINGULAIR) 10 mg tablet Take 10 mg by mouth daily at bedtime. - CALCIUM CARBONATE (TUMS ORAL) Take by mouth as needed. - Omeprazole (PRILOSEC) 40 mg capsule Take 1 capsule by mouth once daily. 30 capsule 4 No current facility-administered medications for this visit. ALLERGIES Allergen Reactions - Ciprofloxacin Rash, Hives, Other: See Comments rapid heart beat - Levaquin [Levofloxa* Other: See Comments - Prednisone Other: See Comments headache PHYSICAL FINDINGS OF NOTE: General ? Normal, cooperative, in no acute distress Able to interact verbally by video conference Psych ? ORIENTATION: normal to time place, person and situation Mood/Affect: AFFECT AND MOOD: Normal Head/Neuro ? Normal size and shape Facial appearance normal Pulmonary ? respiratory effort normal Abdominal ? Not performed Skin ? abnormal lesions not visualized Motor ? patient seen sitting with Normal appearing strength and coordination REVIEWED ITEMS 07/2019 CT abd/pelvis IMPRESSION: 2.6 cm x 2.3 cm septated cyst in the left ovary. Minimal amount of free fluid in the pelvis. ? 01/2019 EGD/Colonoscopy FINAL DIAGNOSIS A. DUODENUM, DUODENAL BULB, SECOND PART, BIOPSY: --DUODENAL MUCOSA, WITHIN NORMAL LIMITS. B. BODY, ANTRUM, STOMACH, BIOPSY: --GASTRIC BODY AND ANTRAL MUCOSA WITH MILD CHRONIC GASTRITIS. SEE NOTE. Note: An immunostain for H. pylori is in progress and the results will be issued in an addendum. C. RANDOM BIOPSIES: --COLONIC MUCOSA, WITHIN NORMAL LIMITS. IMPRESSION (R10.13) Epigastric pain (primary encounter diagnosis) (Z87.11) History of gastric ulcer (R52) Pain aggravated by eating or drinking RECOMMENDATION: RUQ US Mesenteric US EGD Increase pantoprazole to 40 mg twice daily Continue sucralfate QID Bentyl as needed for abdominal pain I spent a total of 25 minutes on the date of the service which included preparing to see the patient, [id number] patient care, completing clinical documentation, obtaining and/or reviewing separately obtained history, counseling and educating the patient/family/caregiver and ordering medications, tests, or procedures. 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 documented in this encounter [facility] Diagnosis Plica of knee, 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 documented in this encounter [facility]* Diagnosis Preoperative examination- Primary Preoperative examination, unspecified Plica of knee, 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 History of peptic ulcer disease Personal history of peptic ulcer disease Anxiety Anxiety state, unspecified Plica of knee, 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 documented in this encounter [facility] Diagnosis Hoffa's syndrome (HCC)- Primary Other disorders of lipoid metabolism documented in this encounter [facility] Diagnosis Chronic pain of right knee- Primary documented in this encounter [facility] Diagnosis Chronic pain of right knee- 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 H/O arthroscopic knee surgery Other postprocedural status [facility] Name Dates Details Patient Instructions Indication:BMI 31.0-31.9,adult Start:12-Feb-2022 Instruction Type:Provider Instructions for Treatment How to Access Health Informa tion Online using Patient Portal and [employer] Indication:BMI 31.0-31.9,adult Start:12-Feb-2022 Instruction Type:Patient Education How to access health informa tion online Indication:Need for prophylactic vaccination and inoculation against influenza (Renamed from Need for immunization against influenza) Start:06-Aug-2019 Instruction Type:Patient Education How to access health informa tion online - Detail Indication:Need for prophylactic vaccination and inoculation against influenza (Renamed from Need for immunization against influenza) Start:06-Aug-2019 Instruction Type:Patient Education Patient Instructions Indication:Need for prophylactic vaccination and inoculation against influenza (Renamed from Need for immunization against influenza) Start:06-Aug-2019 Instruction Type:Provider Instructions for Treatment How to access health informa tion online Indication:BMI 28.0-28.9,adult Start:08-May-2018 Instruction Type:Patient Education How to access health informa tion online - Detail Indication:BMI 28.0-28.9,adult Start:08-May-2018 Instruction Type:Patient Education Patient Instructions Indication:BMI 28.0-28.9,adult Start:08-May-2018 Instruction Type:Provider Instructions for Treatment How to access health informa tion online Indication:BMI 28.0-28.9,adult Start:05-Feb-2018 Instruction Type:Patient Education How to access health informa tion online - Detail Indication:BMI 28.0-28.9,adult Start:05-Feb-2018 Instruction Type:Patient Education Patient Instructions Indication:BMI 28.0-28.9,adult Start:05-Feb-2018 Instruction Type:Provider Instructions for Treatment How to access health informa tion online Indication:BMI 27.0-27.9,adult Start:27-Sep-2017 Instruction Type:Patient Education How to access health informa tion online - Detail Indication:BMI 27.0-27.9,adult Start:27-Sep-2017 Instruction Type:Patient Education Patient Instructions Indication:BMI 27.0-27.9,adult Start:27-Sep-2017 Instruction Type:Provider Instructions for Treatment How to access health informa tion online Indication:Pleurisy Start:10-Jun-2017 Instruction Type:Patient Education How to access health informa tion online - Detail Indication:Pleurisy Start:10-Jun-2017 Instruction Type:Patient Education Patient Instructions Indication:Pleurisy Start:10-Jun-2017 Instruction Type:Provider Instructions for Treatment How to access health informa tion online Indication:Non-smoker Start:06-Jun-2017 Instruction Type:Patient Education How to access health informa tion online - Detail Indication:Non-smoker Start:06-Jun-2017 Instruction Type:Patient Education Patient Instructions Indication:Non-smoker Start:06-Jun-2017 Instruction Type:Provider Instructions for Treatment How to access health informa tion online Indication:Non-smoker Start:04-Jan-2017 Instruction Type:Patient Education How to access health informa tion online - Detail Indication:Non-smoker Start:04-Jan-2017 Instruction Type:Patient Education Patient Instructions Indication:Non-smoker Start:04-Jan-2017 Instruction Type:Provider Instructions for Treatment Patient Instructions Indication:Sinus congestion Start:08-Aug-2016 Instruction Type:Provider Instructions for Treatment How to access health informa tion online Indication:Tremor Start:30-May-2016 Instruction Type:Patient Education How to access health informa tion online - Detail Indication:Tremor Start:30-May-2016 Instruction Type:Patient Education Patient Instructions Indication:Tremor Start:30-May-2016 Instruction Type:Provider Instructions for Treatment How to access health informa tion online Indication:Abdominal pain, acute, right upper quadrant (Renamed from Acute abdominal pain in right upper quadrant) Start:28-Dec-2015 Instruction Type:Patient Education How to access health informa tion online - Detail Indication:Abdominal pain, acute, right upper quadrant (Renamed from Acute abdominal pain in right upper quadrant) Start:28-Dec-2015 Instruction Type:Patient Education Patient Instructions Indication:Abdominal pain, acute, right upper quadrant (Renamed from Acute abdominal pain in right upper quadrant) Start:28-Dec-2015 Instruction Type:Provider Instructions for Treatment How to access health informa tion online Indication:Abdominal pain, acute, right upper quadrant (Renamed from Acute abdominal pain in right upper quadrant) Start:16-Dec-2015 Instruction Type:Patient Education How to access health informa tion online - Detail Indication:Abdominal pain, acute, right upper quadrant (Renamed from Acute abdominal pain in right upper quadrant) Start:16-Dec-2015 Instruction Type:Patient Education Patient Instructions Indication:Abdominal pain, acute, right upper quadrant (Renamed from Acute abdominal pain in right upper quadrant) Start:16-Dec-2015 Instruction Type:Provider Instructions for Treatment Patient Instructions Indication:Allergic reaction to drug Start:06-Sep-2015 Instruction Type:Provider Instructions for Treatment How to access health informa tion online Indication:Cough Start:26-Aug-2015 Instruction Type:Patient Education How to access health informa tion online - Detail Indication:Cough Start:26-Aug-2015 Instruction Type:Patient Education Patient Instructions Indication:Cough Start:26-Aug-2015 Instruction Type:Provider Instructions for Treatment How to access health informa tion online Indication:Acute sinusitis, unspecified Start:15-Aug-2015 Instruction Type:Patient Education How to access health informa tion online - Detail Indication:Acute sinusitis, unspecified Start:15-Aug-2015 Instruction Type:Patient Education Patient Instructions Indication:Acute sinusitis, unspecified Start:15-Aug-2015 Instruction Type:Provider Instructions for Treatment Patient Instructions Indication:SOB (shortness of breath) on exertion Start:09-May-2015 Instruction Type:Provider Instructions for Treatment s Indication:ACUTE PHARYNGITIS (462.) Start:15-Nov-2014 Instruction Type:Provider Instructions for Treatment Patient Instructions Indication:Abscess Start:21-Apr-2014 Instruction Type:Provider Instructions for Treatment Patient Instructions Indication:Unspecified Diagnosis Start:06-Apr-2014 Instruction Type:Provider Instructions for Treatment Patient Instructions Indication:Bronchitis Start:11-Nov-2013 Instruction Type:Provider Instructions for Treatment Patient Instructions Indication:CHEST PAIN Start:04-Nov-2012 Instruction Type:Provider Instructions for Treatment Patient Instructions Indication:Melena Start:18-Aug-2012 Instruction Type:Provider Instructions for Treatment [facility]; [facility] Work Phone: Summary Purpose Family History No Family History Records Found Grandparent Name Dates Details Family history of coronary a rtery disease(V17.3, Z82.49) Status:Active Family history of hypertensi on(V17.49, Z82.49) Status:Active Mother Name Dates Details No pertinent family history( V49.89, Z78.9) Status:Active Father Name Dates Details No pertinent family history( V49.89, Z78.9) Status:Active Grandparent Name Dates Details Family history of coronary a rtery disease(V17.3, Z82.49) Status:Active Family history of hypertensi on(V17.49, Z82.49) Status:Active Mother Name Dates Details No pertinent family history( V49.89, Z78.9) Status:Active Father Name Dates Details No pertinent family history( V49.89, Z78.9) Status:Active Unknown Family Member Name Dates Details Family history of coronary a rtery disease: Grandparent(V17.3, Z82.49) Status:Active Family history of hypertensi on: Grandparent(V17.49, Z82.49) Status:Active No pertinent family history: Mother, Father(V49.89, Z78.9) Status:Active Advance Directives No Advanced Directives Records FoundDocuments on File Type Date Recorded Patient Manager Care Management Expl anation Advance Directive(s) 01/24/2016 10:00 AM Advance Directive(s) 01/11/2016 2:43 PM Documents on File Type Date Recorded Patient Manager Care Management Expl anation Advance Directive(s) 04/16/2022 8:07 AM Advance Directive(s) 01/24/2016 10:00 AM Advance Directive(s) 01/11/2016 2:43 PM Documents on File Type Date Recorded Patient Manager Care Management Expl anation Advance Directive(s) 05/01/2022 8:51 AM Advance Directive(s) 04/16/2022 8:07 AM Advance Directive(s) 01/24/2016 10:00 AM Advance Directive(s) 01/11/2016 2:43 PM Instructions Name Dates Details How to access health informa tion online Indication:BMI 28.0-28.9,adult Start:08-May-2018 Instruction Type:Patient Education How to access health informa tion online - Detail Indication:BMI 28.0-28.9,adult Start:08-May-2018 Instruction Type:Patient Education Patient Instructions Indication:BMI 28.0-28.9,adult Start:08-May-2018 Instruction Type:Provider Instructions for Treatment How to access health informa tion online Indication:BMI 28.0-28.9,adult Start:05-Feb-2018 Instruction Type:Patient Education How to access health informa tion online - Detail Indication:BMI 28.0-28.9,adult Start:05-Feb-2018 Instruction Type:Patient Education Patient Instructions Indication:BMI 28.0-28.9,adult Start:05-Feb-2018 Instruction Type:Provider Instructions for Treatment How to access health informa tion online Indication:BMI 27.0-27.9,adult Start:27-Sep-2017 Instruction Type:Patient Education How to access health informa tion online - Detail Indication:BMI 27.0-27.9,adult Start:27-Sep-2017 Instruction Type:Patient Education Patient Instructions Indication:BMI 27.0-27.9,adult Start:27-Sep-2017 Instruction Type:Provider Instructions for Treatment How to access health informa tion online Indication:Pleurisy Start:10-Jun-2017 Instruction Type:Patient Education How to access health informa tion online - Detail Indication:Pleurisy Start:10-Jun-2017 Instruction Type:Patient Education Patient Instructions Indication:Pleurisy Start:10-Jun-2017 Instruction Type:Provider Instructions for Treatment How to access health informa tion online Indication:Non-smoker Start:06-Jun-2017 Instruction Type:Patient Education How to access health informa tion online - Detail Indication:Non-smoker Start:06-Jun-2017 Instruction Type:Patient Education Patient Instructions Indication:Non-smoker Start:06-Jun-2017 Instruction Type:Provider Instructions for Treatment How to access health informa tion online Indication:Non-smoker Start:04-Jan-2017 Instruction Type:Patient Education How to access health informa tion online - Detail Indication:Non-smoker Start:04-Jan-2017 Instruction Type:Patient Education Patient Instructions Indication:Non-smoker Start:04-Jan-2017 Instruction Type:Provider Instructions for Treatment Patient Instructions Indication:Sinus congestion Start:08-Aug-2016 Instruction Type:Provider Instructions for Treatment How to access health informa tion online Indication:Tremor Start:30-May-2016 Instruction Type:Patient Education How to access health informa tion online - Detail Indication:Tremor Start:30-May-2016 Instruction Type:Patient Education Patient Instructions Indication:Tremor Start:30-May-2016 Instruction Type:Provider Instructions for Treatment How to access health informa tion online Indication:Abdominal pain, acute, right upper quadrant (Renamed from Acute abdominal pain in right upper quadrant) Start:28-Dec-2015 Instruction Type:Patient Education How to access health informa tion online - Detail Indication:Abdominal pain, acute, right upper quadrant (Renamed from Acute abdominal pain in right upper quadrant) Start:28-Dec-2015 Instruction Type:Patient Education Patient Instructions Indication:Abdominal pain, acute, right upper quadrant (Renamed from Acute abdominal pain in right upper quadrant) Start:28-Dec-2015 Instruction Type:Provider Instructions for Treatment How to access health informa tion online Indication:Abdominal pain, acute, right upper quadrant (Renamed from Acute abdominal pain in right upper quadrant) Start:16-Dec-2015 Instruction Type:Patient Education How to access health informa tion online - Detail Indication:Abdominal pain, acute, right upper quadrant (Renamed from Acute abdominal pain in right upper quadrant) Start:16-Dec-2015 Instruction Type:Patient Education Patient Instructions Indication:Abdominal pain, acute, right upper quadrant (Renamed from Acute abdominal pain in right upper quadrant) Start:16-Dec-2015 Instruction Type:Provider Instructions for Treatment Patient Instructions Indication:Allergic reaction to drug Start:06-Sep-2015 Instruction Type:Provider Instructions for Treatment How to access health informa tion online Indication:Cough Start:26-Aug-2015 Instruction Type:Patient Education How to access health informa tion online - Detail Indication:Cough Start:26-Aug-2015 Instruction Type:Patient Education Patient Instructions Indication:Cough Start:26-Aug-2015 Instruction Type:Provider Instructions for Treatment How to access health informa tion online Indication:Acute sinusitis, unspecified Start:15-Aug-2015 Instruction Type:Patient Education How to access health informa tion online - Detail Indication:Acute sinusitis, unspecified Start:15-Aug-2015 Instruction Type:Patient Education Patient Instructions Indication:Acute sinusitis, unspecified Start:15-Aug-2015 Instruction Type:Provider Instructions for Treatment Patient Instructions Indication:SOB (shortness of breath) on exertion Start:09-May-2015 Instruction Type:Provider Instructions for Treatment s Indication:ACUTE PHARYNGITIS (462.) Start:15-Nov-2014 Instruction Type:Provider Instructions for Treatment Patient Instructions Indication:Abscess Start:21-Apr-2014 Instruction Type:Provider Instructions for Treatment Patient Instructions Indication:Unspecified Diagnosis Start:06-Apr-2014 Instruction Type:Provider Instructions for Treatment Patient Instructions Indication:Bronchitis Start:11-Nov-2013 Instruction Type:Provider Instructions for Treatment Patient Instructions Indication:CHEST PAIN Start:04-Nov-2012 Instruction Type:Provider Instructions for Treatment Patient Instructions Indication:Melena Start:18-Aug-2012 Instruction Type:Provider Instructions for Treatment Name Dates Details How to access health informa tion online Indication:BMI 28.0-28.9,adult Start:08-May-2018 Instruction Type:Patient Education How to access health informa tion online - Detail Indication:BMI 28.0-28.9,adult Start:08-May-2018 Instruction Type:Patient Education Patient Instructions Indication:BMI 28.0-28.9,adult Start:08-May-2018 Instruction Type:Provider Instructions for Treatment How to access health informa tion online Indication:BMI 28.0-28.9,adult Start:05-Feb-2018 Instruction Type:Patient Education How to access health informa tion online - Detail Indication:BMI 28.0-28.9,adult Start:05-Feb-2018 Instruction Type:Patient Education Patient Instructions Indication:BMI 28.0-28.9,adult Start:05-Feb-2018 Instruction Type:Provider Instructions for Treatment How to access health informa tion online Indication:BMI 27.0-27.9,adult Start:27-Sep-2017 Instruction Type:Patient Education How to access health informa tion online - Detail Indication:BMI 27.0-27.9,adult Start:27-Sep-2017 Instruction Type:Patient Education Patient Instructions Indication:BMI 27.0-27.9,adult Start:27-Sep-2017 Instruction Type:Provider Instructions for Treatment How to access health informa tion online Indication:Pleurisy Start:10-Jun-2017 Instruction Type:Patient Education How to access health informa tion online - Detail Indication:Pleurisy Start:10-Jun-2017 Instruction Type:Patient Education Patient Instructions Indication:Pleurisy Start:10-Jun-2017 Instruction Type:Provider Instructions for Treatment How to access health informa tion online Indication:Non-smoker Start:06-Jun-2017 Instruction Type:Patient Education How to access health informa tion online - Detail Indication:Non-smoker Start:06-Jun-2017 Instruction Type:Patient Education Patient Instructions Indication:Non-smoker Start:06-Jun-2017 Instruction Type:Provider Instructions for Treatment How to access health informa tion online Indication:Non-smoker Start:04-Jan-2017 Instruction Type:Patient Education How to access health informa tion online - Detail Indication:Non-smoker Start:04-Jan-2017 Instruction Type:Patient Education Patient Instructions Indication:Non-smoker Start:04-Jan-2017 Instruction Type:Provider Instructions for Treatment Patient Instructions Indication:Sinus congestion Start:08-Aug-2016 Instruction Type:Provider Instructions for Treatment How to access health informa tion online Indication:Tremor Start:30-May-2016 Instruction Type:Patient Education How to access health informa tion online - Detail Indication:Tremor Start:30-May-2016 Instruction Type:Patient Education Patient Instructions Indication:Tremor Start:30-May-2016 Instruction Type:Provider Instructions for Treatment How to access health informa tion online Indication:Abdominal pain, acute, right upper quadrant (Renamed from Acute abdominal pain in right upper quadrant) Start:28-Dec-2015 Instruction Type:Patient Education How to access health informa tion online - Detail Indication:Abdominal pain, acute, right upper quadrant (Renamed from Acute abdominal pain in right upper quadrant) Start:28-Dec-2015 Instruction Type:Patient Education Patient Instructions Indication:Abdominal pain, acute, right upper quadrant (Renamed from Acute abdominal pain in right upper quadrant) Start:28-Dec-2015 Instruction Type:Provider Instructions for Treatment How to access health informa tion online Indication:Abdominal pain, acute, right upper quadrant (Renamed from Acute abdominal pain in right upper quadrant) Start:16-Dec-2015 Instruction Type:Patient Education How to access health informa tion online - Detail Indication:Abdominal pain, acute, right upper quadrant (Renamed from Acute abdominal pain in right upper quadrant) Start:16-Dec-2015 Instruction Type:Patient Education Patient Instructions Indication:Abdominal pain, acute, right upper quadrant (Renamed from Acute abdominal pain in right upper quadrant) Start:16-Dec-2015 Instruction Type:Provider Instructions for Treatment Patient Instructions Indication:Allergic reaction to drug Start:06-Sep-2015 Instruction Type:Provider Instructions for Treatment How to access health informa tion online Indication:Cough Start:26-Aug-2015 Instruction Type:Patient Education How to access health informa tion online - Detail Indication:Cough Start:26-Aug-2015 Instruction Type:Patient Education Patient Instructions Indication:Cough Start:26-Aug-2015 Instruction Type:Provider Instructions for Treatment How to access health informa tion online Indication:Acute sinusitis, unspecified Start:15-Aug-2015 Instruction Type:Patient Education How to access health informa tion online - Detail Indication:Acute sinusitis, unspecified Start:15-Aug-2015 Instruction Type:Patient Education Patient Instructions Indication:Acute sinusitis, unspecified Start:15-Aug-2015 Instruction Type:Provider Instructions for Treatment Patient Instructions Indication:SOB (shortness of breath) on exertion Start:09-May-2015 Instruction Type:Provider Instructions for Treatment s Indication:ACUTE PHARYNGITIS (462.) Start:15-Nov-2014 Instruction Type:Provider Instructions for Treatment Patient Instructions Indication:Abscess Start:21-Apr-2014 Instruction Type:Provider Instructions for Treatment Patient Instructions Indication:Unspecified Diagnosis Start:06-Apr-2014 Instruction Type:Provider Instructions for Treatment Patient Instructions Indication:Bronchitis Start:11-Nov-2013 Instruction Type:Provider Instructions for Treatment Patient Instructions Indication:CHEST PAIN Start:04-Nov-2012 Instruction Type:Provider Instructions for Treatment Patient Instructions Indication:Melena Start:18-Aug-2012 Instruction Type:Provider Instructions for Treatment Name Dates Details How to access health informa tion online Indication:Need for prophylactic vaccination and inoculation against influenza (Renamed from Need for immunization against influenza) Start:06-Aug-2019 Instruction Type:Patient Education How to access health informa tion online - Detail Indication:Need for prophylactic vaccination and inoculation against influenza (Renamed from Need for immunization against influenza) Start:06-Aug-2019 Instruction Type:Patient Education Patient Instructions Indication:Need for prophylactic vaccination and inoculation against influenza (Renamed from Need for immunization against influenza) Start:06-Aug-2019 Instruction Type:Provider Instructions for Treatment How to access health informa tion online Indication:BMI 28.0-28.9,adult Start:08-May-2018 Instruction Type:Patient Education How to access health informa tion online - Detail Indication:BMI 28.0-28.9,adult Start:08-May-2018 Instruction Type:Patient Education Patient Instructions Indication:BMI 28.0-28.9,adult Start:08-May-2018 Instruction Type:Provider Instructions for Treatment How to access health informa tion online Indication:BMI 28.0-28.9,adult Start:05-Feb-2018 Instruction Type:Patient Education How to access health informa tion online - Detail Indication:BMI 28.0-28.9,adult Start:05-Feb-2018 Instruction Type:Patient Education Patient Instructions Indication:BMI 28.0-28.9,adult Start:05-Feb-2018 Instruction Type:Provider Instructions for Treatment How to access health informa tion online Indication:BMI 27.0-27.9,adult Start:27-Sep-2017 Instruction Type:Patient Education How to access health informa tion online - Detail Indication:BMI 27.0-27.9,adult Start:27-Sep-2017 Instruction Type:Patient Education Patient Instructions Indication:BMI 27.0-27.9,adult Start:27-Sep-2017 Instruction Type:Provider Instructions for Treatment How to access health informa tion online Indication:Pleurisy Start:10-Jun-2017 Instruction Type:Patient Education How to access health informa tion online - Detail Indication:Pleurisy Start:10-Jun-2017 Instruction Type:Patient Education Patient Instructions Indication:Pleurisy Start:10-Jun-2017 Instruction Type:Provider Instructions for Treatment How to access health informa tion online Indication:Non-smoker Start:06-Jun-2017 Instruction Type:Patient Education How to access health informa tion online - Detail Indication:Non-smoker Start:06-Jun-2017 Instruction Type:Patient Education Patient Instructions Indication:Non-smoker Start:06-Jun-2017 Instruction Type:Provider Instructions for Treatment How to access health informa tion online Indication:Non-smoker Start:04-Jan-2017 Instruction Type:Patient Education How to access health informa tion online - Detail Indication:Non-smoker Start:04-Jan-2017 Instruction Type:Patient Education Patient Instructions Indication:Non-smoker Start:04-Jan-2017 Instruction Type:Provider Instructions for Treatment Patient Instructions Indication:Sinus congestion Start:08-Aug-2016 Instruction Type:Provider Instructions for Treatment How to access health informa tion online Indication:Tremor Start:30-May-2016 Instruction Type:Patient Education How to access health informa tion online - Detail Indication:Tremor Start:30-May-2016 Instruction Type:Patient Education Patient Instructions Indication:Tremor Start:30-May-2016 Instruction Type:Provider Instructions for Treatment How to access health informa tion online Indication:Abdominal pain, acute, right upper quadrant (Renamed from Acute abdominal pain in right upper quadrant) Start:28-Dec-2015 Instruction Type:Patient Education How to access health informa tion online - Detail Indication:Abdominal pain, acute, right upper quadrant (Renamed from Acute abdominal pain in right upper quadrant) Start:28-Dec-2015 Instruction Type:Patient Education Patient Instructions Indication:Abdominal pain, acute, right upper quadrant (Renamed from Acute abdominal pain in right upper quadrant) Start:28-Dec-2015 Instruction Type:Provider Instructions for Treatment How to access health informa tion online Indication:Abdominal pain, acute, right upper quadrant (Renamed from Acute abdominal pain in right upper quadrant) Start:16-Dec-2015 Instruction Type:Patient Education How to access health informa tion online - Detail Indication:Abdominal pain, acute, right upper quadrant (Renamed from Acute abdominal pain in right upper quadrant) Start:16-Dec-2015 Instruction Type:Patient Education Patient Instructions Indication:Abdominal pain, acute, right upper quadrant (Renamed from Acute abdominal pain in right upper quadrant) Start:16-Dec-2015 Instruction Type:Provider Instructions for Treatment Patient Instructions Indication:Allergic reaction to drug Start:06-Sep-2015 Instruction Type:Provider Instructions for Treatment How to access health informa tion online Indication:Cough Start:26-Aug-2015 Instruction Type:Patient Education How to access health informa tion online - Detail Indication:Cough Start:26-Aug-2015 Instruction Type:Patient Education Patient Instructions Indication:Cough Start:26-Aug-2015 Instruction Type:Provider Instructions for Treatment How to access health informa tion online Indication:Acute sinusitis, unspecified Start:15-Aug-2015 Instruction Type:Patient Education How to access health informa tion online - Detail Indication:Acute sinusitis, unspecified Start:15-Aug-2015 Instruction Type:Patient Education Patient Instructions Indication:Acute sinusitis, unspecified Start:15-Aug-2015 Instruction Type:Provider Instructions for Treatment Patient Instructions Indication:SOB (shortness of breath) on exertion Start:09-May-2015 Instruction Type:Provider Instructions for Treatment s Indication:ACUTE PHARYNGITIS (462.) Start:15-Nov-2014 Instruction Type:Provider Instructions for Treatment Patient Instructions Indication:Abscess Start:21-Apr-2014 Instruction Type:Provider Instructions for Treatment Patient Instructions Indication:Unspecified Diagnosis Start:06-Apr-2014 Instruction Type:Provider Instructions for Treatment Patient Instructions Indication:Bronchitis Start:11-Nov-2013 Instruction Type:Provider Instructions for Treatment Patient Instructions Indication:CHEST PAIN Start:04-Nov-2012 Instruction Type:Provider Instructions for Treatment Patient Instructions Indication:Melena Start:18-Aug-2012 Instruction Type:Provider Instructions for Treatment Name Dates Details Instructions not documented Name Dates Details Instructions not documented Medications Administered Section Inactive Administered Medications - up to 3 most recent administrations Medication Order MAR Action Action Date Dose Rate Site ropivacaine (PF) 5 mg/mL (0.5 %) 8 mL injection (NAROPIN) 8 mL, Injection - FOR ORTHO USE ONLY, ONE TIME INJECTION, 1 dose, Starting on Sat03/07/22 at 1242, Until Sat03/07/22 at 1242 Given 03/07/2022 12:42 PM EDT 8 mL triamcinolone acetonide 80 mg injection (KeNALog 40) 80 mg, Injection - FOR ORTHO USE ONLY, ONE TIME INJECTION, 1 dose, Starting on Sat03/07/22 at 1242, Until Sat03/07/22 at 1242 Given 03/07/2022 12:42 PM EDT 80 mg Reason for Referral Specialty Diagnoses / Procedures Referred By Contac t Referred To Contact [facility] Diagnoses Hoffa's syndrome (HCC) Procedures CONSULT TO PHYSICAL THERAPY PHYSICAL THERAPY EVALUATION HIGH COMPLEX 45 MINS Jaylene Martínez DO [address] [place] [address] [facility] [address] [place] [id number] Referral ID Status Reason Start Date Expiration Date Visits Requested Visits Authorized [id number] Pending Review Auto-Generat ed Referral 05/16/2022 05/16/2023 1 1 Additional Source Comments INFORMATION SOURCE (unrecogn ized section and content) DATE CREATED AUTHOR AUTHOR'S ORGANIZ ATION 03/14/[address] [facility] DATE CREATED AUTHOR AUTHOR'S ORGANIZ ATION 10/22/2019 [facility] DATE CREATED AUTHOR AUTHOR'S ORGANIZ ATION 05/27/2020 [facility] DATE CREATED AUTHOR AUTHOR'S ORGANIZ ATION 08/18/2020 [facility] DATE CREATED AUTHOR AUTHOR'S ORGANIZ ATION 09/19/2020 [facility] DATE CREATED AUTHOR AUTHOR'S ORGANIZ ATION 05/01/2022 [facility] DATE CREATED AUTHOR AUTHOR'S ORGANIZ ATION 08/17/2022 [facility] Source Comments (unrecognize d section and content) In the event this informatio n is protected by the Federal Confidentiality of Alcohol and Drug Abuse Patient Records regulations: The Federal rules restrict any use of the information to criminally investigate or prosecute any alcohol or drug abuse patient.[facility] the event this information is protected by the Federal Confidentiality of Alcohol and Drug Abuse Patient Records regulations: The Federal rules restrict any use of the information to criminally investigate or prosecute any alcohol or drug abuse patient.[facility] the event this information is protected by the Federal Confidentiality of Alcohol and Drug Abuse Patient Records regulations: The Federal rules restrict any use of the information to criminally investigate or prosecute any alcohol or drug abuse patient.[facility] the event this information is protected by the Federal Confidentiality of Alcohol and Drug Abuse Patient Records regulations: The Federal rules restrict any use of the information to criminally investigate or prosecute any alcohol or drug abuse patient.[facility] the event this information is protected by the Federal Confidentiality of Alcohol and Drug Abuse Patient Records regulations: The Federal rules restrict any use of the information to criminally investigate or prosecute any alcohol or drug abuse patient.[facility] the event this information is protected by the Federal Confidentiality of Alcohol and Drug Abuse Patient Records regulations: The Federal rules restrict any use of the information to criminally investigate or prosecute any alcohol or drug abuse patient.[facility] the event this information is protected by the Federal Confidentiality of Alcohol and Drug Abuse Patient Records regulations: The Federal rules restrict any use of the information to criminally investigate or prosecute any alcohol or drug abuse patient.[facility] Reason for Visit (unrecogniz ed section and content) Reason Comments Consult Reason Comments Knee Pain Post Op Reason Comments Post Op Established Patient Follow Up Care Teams (unrecognized sec tion and content) 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 Relationship Specialty Start Date End Date Leroy Zayas DO [address] [place], [place] [phone] PCP - General Family Practice 08/09/21 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 Relationship Specialty Start Date End Date Leroy Zayas DO [address] [place] [address] PCP - General Family Practice 08/09/21 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 Relationship Specialty Start Date End Date Leroy Zayas DO [address] [place], [place] [phone] PCP - General Family Practice 08/09/21 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 Relationship Specialty Start Date End Date Leroy Zayas DO [address] [place] [address] PCP - General Family Practice 08/09/21 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 This clinical summary was aggregated from multiple sources. Caution should be exercised in using it in the provision of clinical care. This summary normalizes information from multiple sources, and as a consequence, information in this document may materially change the coding, format and clinical context of patient data. In addition, data may be omitted in some cases. CLINICAL DECISIONS SHOULD BE BASED ON THE PRIMARY CLINICAL RECORDS. [facility]. provides no warranty or guarantee of the accuracy or completeness of information in this document.
[2023-12-23 09:29] LABS: HIV - WCH Non-Reactive (Nonreactive); Hepatitis B Surface Antigen Non-Reactive (Nonreactive); Hepatitis C Antibody Non-Reactive (Nonreactive); Rubella IgG Reactive (Nonreactive); Syphilis Antibodies Non-reactive
== END | disposition home or self-care (01) ==
LOC: PAVLAB 08:01
PROVIDERS: PCP Family Medicine; Referring Provider Advanced Practice Midwife; Visit Provider Advanced Practice Midwife
DX: Z34.90 Encounter for supervision of normal pregnancy, unspecified, unspecified trimester (principal)
CPT/HCPCS: 36415; 85025; 86703; 86762; 86780; 86803; 86850; 86900; 86901; 87340

== ENCOUNTER → 2024-04-29 | Outpatient (CLI) | payer OTHER, SELFPAY ==
[2024-04-29 09:41] LABS: Absolute Lymphocyte Count 1.35 X10^3/uL (0.83-4.51); Absolute Neutrophil Count 6.9 X10^3/uL (2.0-7.7); Basophil# 0.05 X10^3/uL; Basophil% 0.5 % (0-1); Eosinophil# 0.25 X10^3/uL; Eosinophils% 2.7 % (0-5); Hematocrit 37.8 % (37-47); Lymphocyte # 1.35 X10^3/ul (0.83-4.51); Lymphocyte % 14.3 % (19-41); Mean Corp Hgb Conc 34.4 g/dL (32-36); Mean Corpuscular Hgb 32.3 pg (27.0-32.0); Mean Platelet Vol. 12.1 fl (6.2-12.0); Monocyte# 0.82 X10^3/uL; Monocyte% 8.7 % (0-10); NRBC Flagged by Analyzer 0 % (0-5); Neutrophil # 6.87 X10^3/uL (2.7-7.7); Platelet Count 145 K/mm3 (150-450); RBC Distribution Width CV 12.4 % (11.6-14.6); RBC Distribution Width SD 42.9 fl (35.1-43.9); Red Blood Count 4.02 M/mm3 (4.2-5.4); White Blood Count 9.4 K/mm3 (4.4-11.0)
[2024-04-29 10:26] LABS: Glucose Challenge Gest 1H 50g 95 mg/dL (70-140)
[2024-04-29 10:53] LABS: HIV - WCH Non-Reactive (Nonreactive); Syphilis Antibodies Non-reactive
== END | disposition home or self-care (01) ==
LOC: PAVLAB 09:14
PROVIDERS: Obstetrics & Gynecology; PCP Family Medicine; Visit Provider Nurse Practitioner Women's Health
DX: O09.92 Supervision of high risk pregnancy, unspecified, second trimester (principal); Z13.1 Encounter for screening for diabetes mellitus; Z3A.00 Weeks of gestation of pregnancy not specified
CPT/HCPCS: 36415; 82950; 85025; 86703; 86780

== ENCOUNTER → 2024-05-13 | Outpatient (CLI) | payer OTHER, SELFPAY ==
[2024-05-13 10:55] LABS: Absolute Lymphocyte Count 1.37 X10^3/uL (0.83-4.51); Absolute Neutrophil Count 6.6 X10^3/uL (2.0-7.7); Basophil# 0.05 X10^3/uL; Basophil% 0.5 % (0-1); Eosinophil# 0.24 X10^3/uL; Eosinophils% 2.6 % (0-5); Hemoglobin 13.2 g/dL (12.0-15.0); Lymphocyte # 1.37 X10^3/ul (0.83-4.51); Lymphocyte % 14.9 % (19-41); Mean Corp Hgb Conc 33.8 g/dL (32-36); Mean Corpuscular Hgb 32.5 pg (27.0-32.0); Mean Corpuscular Volume 96.1 fL (81-99); Mean Platelet Vol. 11.9 fl (6.2-12.0); Monocyte# 0.83 X10^3/uL; NRBC Flagged by Analyzer 0 % (0-5); Neutrophil # 6.62 X10^3/uL (2.7-7.7); Neutrophil % 71.9 % (47-70); Platelet Count 131 K/mm3 (150-450); RBC Distribution Width CV 12.5 % (11.6-14.6); RBC Distribution Width SD 42.8 fl (35.1-43.9); Red Blood Count 4.06 M/mm3 (4.2-5.4); White Blood Count 9.2 K/mm3 (4.4-11.0)
== END | disposition home or self-care (01) ==
LOC: PAVLAB 10:38
PROVIDERS: PCP Family Medicine; Referring Provider Nurse Practitioner Women's Health; Visit Provider Nurse Practitioner Women's Health
DX: D69.6 Thrombocytopenia, unspecified (principal)
CPT/HCPCS: 36415; 85025

== ENCOUNTER 2024-06-15 10:08 | Outpatient (CLI) | payer OTHER, SELFPAY ==
[2024-06-15 10:30] VITALS: RESP 16; TEMP 36.6
[2024-06-15 10:31] VITALS: BP 120/81; PULSE 67
[2024-06-15 10:37] VITALS: BMI 31.6
[2024-06-15 11:18] LABS: ROM Internal Control Test YES-OK TO RESULT pt. (Internal QC)
[2024-06-15 11:19] LABS: ROM Patient Test Negative (Negative); Record Kit Lot#, ROM+ K1866
--- NOTE | 2024-06-15 11:38 | OB.TRI.PN ---
Progress Notes Date of Service: 06/15/24 Progress Note: Patient presents for triage evaluation secondary to vaginal discharge FHT: 130 Moderate variability reactive no decelerations category I tracing [place]: irregular Contractions Assessment and plan: Negative ROM, Reactive NST, reassuring maternal and status patient discharged to home to follow-up in office . See problem list details for additional plan information. Laboratory Studies: Laboratory Tests 06/15/24 Range/Units 10:45 Vag Amniotic Fld Detect Negative (Negative) Charges/Coding Multi Select Codes Urinary/Genital Urinary/Genital CPT Codes: 16354-03 non-stress test Interp Assessment & Plan (1) Gestational thrombocytopenia: COMMENT: allergic to steroids. stable 130s. cbc at 36 weeks. (2) AMA (advanced maternal age) primigravida 35+: COMMENT: 36 wk growth US (3) Nausea and vomiting: QUALIFIERS: Vomiting type: unspecified Qualified Code(s): R11.2 - Nausea with vomiting, unspecified COMMENT: improving w zofran; phenergan added for evenings (4) Seasonal allergies: (5) Supervision of high-risk : QUALIFIERS: Trimester: third trimester Qualified Code(s): O09.93 - Supervision of high risk , unspecified, third trimester COMMENT: PRR,, TRISTON 07/19/24, girl Karlo (6) : QUALIFIERS: Weeks of gestation: 35 weeks Qualified Code(s): Z3A.35 - 35 weeks gestation of COMMENT: NIPT low risk, carrier neg. 4/4. Declines AFP. Normal Anatomy & consistent TRISTON. (7) Anxiety: COMMENT: stable (8) Vaginal discharge during : COMMENT: rom negative, reactive NST, D/C home PLAN: Rom negative reactive NST follow up in office
== END 2024-06-15 11:40 | disposition home or self-care (01) ==
LOC: WPOUT 10:15 → WP 10:16
PROVIDERS: PCP Family Medicine; Referring Provider Advanced Practice Midwife; Visit Provider Advanced Practice Midwife
DX: O47.03 False labor before 37 completed weeks of gestation, third trimester (principal); O09.513 Supervision of elderly primigravida, third trimester; Z3A.35 35 weeks gestation of pregnancy
CPT/HCPCS: 59050; 84112; 99221; G0378

== ENCOUNTER → 2024-06-15 | Outpatient (CLI) | payer OTHER, SELFPAY ==
--- NOTE | 2024-06-15 11:44 | US_ITS ---
STUDY: SECOND AND THIRD TRIMESTER OBSTETRICAL ULTRASOUND REASON FOR EXAM: Female, 34 years old wellbeing -- 36 Weeks LMP: TECHNIQUE: Transabdominal TECHNICAL QUALITY: Adequate. PRIOR ULTRASOUND: None. FINDINGS: There is a single intrauterine fetus. The fetus is in a cephalic presentation. There is demonstrated cardiac activity with a heart rate of 125 bpm. There is a normal amniotic fluid volume. The largest amniotic fluid pocket measures 5.9 cm. The amniotic fluid index (MAHESH) is 12.2 cm. The placenta is posterior in location and is not low lying. There are Grade 2 placental changes. The cervix measures in length. The bilateral adnexal regions are normal. BIOMETRY: BPD: 8.7 cm: 35 weeks, 2 days HC: 31.0 cm: 34 weeks, 4 days AC: 30.0 cm: 34 weeks, 0 days FL: 6.7 cm: 34 weeks, 2 days CI: 81.62 FL/BPD: 76.51 FL/HC: 21.53 FL/AC: 22.26 HC/AC: 1.03 age by current US: 34 weeks, 3 days. TRISTON by current US: 07/24/2024. Estimated weight: 2420 grams, +/- 363 grams, 28 %. age by prior US: weeks, days. TRISTON by prior US: . Age by LMP: 35 weeks, 1 days. TRISTON by LMP: 07/19/2024. US/OB Limited With Biometrics IMPRESSION: Living intrauterine of 34 weeks 3 days as described above. Electronically Signed: Phu Newton MD at 9:34 EDT ,
== END | disposition home or self-care (01) ==
LOC: US 11:43
PROVIDERS: PCP Family Medicine; Referring Provider Nurse Practitioner Women's Health; Visit Provider Nurse Practitioner Women's Health
DX: O09.519 Supervision of elderly primigravida, unspecified trimester (principal); Z3A.00 Weeks of gestation of pregnancy not specified
CPT/HCPCS: 76816

== ENCOUNTER → 2024-06-23 | Outpatient (CLI) | payer OTHER, SELFPAY ==
[2024-06-23 11:40] LABS: ALB/GLOB Ratio 0.7 RATIO (0.9-2.4); AST(SGOT) 16 U/L (15-37); Alanine Aminotransfer ALT/SGPT 17 U/L (13-56); Alkaline Phosphatase 63 U/L (45-117); Anion Gap 5 (5-15); BUN 9 mg/dL (7-18); BUN/Creat Ratio 12.7 RATIO (10-20); Calcium,Total 9.6 mg/dL (8.5-10.1); Chloride 106 mmol/L (98-107); Creatinine, Serum 0.71 mg/dL (0.55-1.02); EST Glomerular Filtration Rate 99 mL/min (>60); Est Glom Filt Rate - Afr Amer 120 mL/min (>60); Globulin 4.4 g/dL (2.2-4.2); Glucose 89 mg/dL (74-106); Potassium 3.8 mmol/L (3.5-5.1); Protein, Total 7.4 g/dL (6.4-8.2); Sodium Level 136 mmol/L (136-145)
[2024-06-23 15:55] LABS: Protein:Creat Ratio 323 mg/g CRE (0-200)
== END | disposition home or self-care (01) ==
LOC: PAVLAB 10:43 → LABSPEC 14:37
PROVIDERS: PCP Family Medicine; Referring Provider Advanced Practice Midwife; Visit Provider Advanced Practice Midwife
DX: O09.93 Supervision of high risk pregnancy, unspecified, third trimester (principal); Z3A.00 Weeks of gestation of pregnancy not specified
CPT/HCPCS: 36415; 80053; 82570; 84156; 87081

== ENCOUNTER → 2024-06-24 | Outpatient (CLI) | payer OTHER, SELFPAY ==
[2024-06-24 15:42] LABS: Absolute Lymphocyte Count 1.64 X10^3/uL (0.83-4.51); Basophil# 0.05 X10^3/uL; Basophil% 0.4 % (0-1); Eosinophil# 0.29 X10^3/uL; Eosinophils% 2.6 % (0-5); Hematocrit 39.1 % (37-47); Hemoglobin 13.5 g/dL (12.0-15.0); Lymphocyte # 1.64 X10^3/ul (0.83-4.51); Lymphocyte % 14.6 % (19-41); Mean Corp Hgb Conc 34.5 g/dL (32-36); Mean Corpuscular Hgb 33.2 pg (27.0-32.0); Mean Corpuscular Volume 96.1 fL (81-99); Mean Platelet Vol. 12.9 fl (6.2-12.0); Monocyte# 1.15 X10^3/uL; Monocyte% 10.3 % (0-10); NRBC Flagged by Analyzer 0 % (0-5); Neutrophil # 8.01 X10^3/uL (2.7-7.7); Neutrophil % 71.6 % (47-70); Platelet Count 136 K/mm3 (150-450); RBC Distribution Width CV 12.3 % (11.6-14.6); RBC Distribution Width SD 42.7 fl (35.1-43.9); Red Blood Count 4.07 M/mm3 (4.2-5.4); White Blood Count 11.2 K/mm3 (4.4-11.0)
== END | disposition home or self-care (01) ==
LOC: PAVLAB 15:32
PROVIDERS: PCP Family Medicine; Referring Provider Advanced Practice Midwife; Visit Provider Advanced Practice Midwife
DX: O99.119 Other diseases of the blood and blood-forming organs and certain disorders involving the immune mechanism complicating pregnancy, unspecified trimester (principal); D69.6 Thrombocytopenia, unspecified; Z3A.00 Weeks of gestation of pregnancy not specified
CPT/HCPCS: 36415; 85025

== ENCOUNTER → 2024-07-03 | Outpatient (CLI) | payer OTHER, SELFPAY | END | disposition home or self-care (01) | LOC: LABSPEC 16:53 | PROVIDERS: PCP Family Medicine; Referring Provider Advanced Practice Midwife; Visit Provider Advanced Practice Midwife | DX: R30.0 Dysuria (principal) | CPT/HCPCS: 87086 ==

== ENCOUNTER 2024-07-13 21:33 | Inpatient (IN) | payer OTHER, SELFPAY ==
[2024-07-13 21:26] VITALS: BMI 31.8
[2024-07-13 22:14] VITALS: PULSE 58; O2SAT 98
[2024-07-13 22:15] VITALS: BP 115/72; PULSE 56
[2024-07-13] MEDS: Lactated Ringers 1,000 ML 50 ML IV (22:25)
[2024-07-13 22:48] LABS: Absolute Lymphocyte Count 2.06 X10^3/uL (0.83-4.51); Absolute Neutrophil Count 6.5 X10^3/uL (2.0-7.7); Basophil# 0.05 X10^3/uL; Basophil% 0.5 % (0-1); Eosinophil# 0.25 X10^3/uL; Eosinophils% 2.5 % (0-5); Hematocrit 37.9 % (37-47); Hemoglobin 13.1 g/dL (12.0-15.0); Lymphocyte # 2.06 X10^3/ul (0.83-4.51); Lymphocyte % 20.5 % (19-41); Mean Corp Hgb Conc 34.6 g/dL (32-36); Mean Corpuscular Hgb 32.9 pg (27.0-32.0); Mean Corpuscular Volume 95.2 fL (81-99); Mean Platelet Vol. 13.8 fl (6.2-12.0); Monocyte# 1.11 X10^3/uL; Monocyte% 11.1 % (0-10); NRBC Flagged by Analyzer 0 % (0-5); Neutrophil # 6.51 X10^3/uL (2.7-7.7); Neutrophil % 64.9 % (47-70); Platelet Count 124 K/mm3 (150-450); RBC Distribution Width SD 41.4 fl (35.1-43.9); Red Blood Count 3.98 M/mm3 (4.2-5.4)
[2024-07-13] MEDS: miSOPROStol 25 MCG TABLET PO (23:29)
[2024-07-13 23:34] LABS: Syphilis Antibodies Non-reactive
[2024-07-13 23:43] VITALS: PULSE 59; O2SAT 99
[2024-07-13] MEDS: Lactated Ringers 1,000 ML 999 ML IV (23:45)
[2024-07-13 23:48] VITALS: PULSE 90; O2SAT 98
[2024-07-13 23:53] VITALS: PULSE 66; O2SAT 97
[2024-07-13 23:58] VITALS: PULSE 78; O2SAT 97
[2024-07-14] VITALS (114 sets, daily range): BP systolic 96–146; BP diastolic 53–87; PULSE 49–112; RESP 14–18; TEMP 36.4–37.4; O2SAT 79–100
[2024-07-14] MEDS: Terbutaline 1 MG/ML Vial 0.25 MG SC (01:26)
[2024-07-14] MEDS: LACTATED RINGERS 500 ML 999 ML IV ×2 (04:25→12:08)
[2024-07-14] MEDS: Lactated Ringers 1,000 ML 50 ML IV (05:14)
[2024-07-14] MEDS: Acetaminophen 500 MG Tablet PO ×2 (06:25→18:44)
[2024-07-14] MEDS: 0.9% Normal Saline Single 100 ML IV.SOLN. INTRA-UTER (07:10)
[2024-07-14] MEDS: fentaNYL-bupivacaine (epidural) 100 ML BAG EPIDURAL ×3 (07:33→16:39)
--- NOTE | 2024-07-14 07:35 | HP.PCM.OB_ITS ---
HPI - General General Date of Admission: 07/13/24 HPI Narrative MICHELLE ORDONEZ, is a 34y/o @39 weeks 2 days who presents for induction of labor. He arrived on the evening of 07/12/24 for a cytotec induction for advanced maternal age. She was given one dose of 25 mcg cytotec when she started showing signs of uterine hyperstimulation. There was an 8 minute deceleration with reassuring resolution. At that time her cervix was still noted to be closed. The tracing resolved for several hours until she had one more 2 minute deceleration. At that time terbutaline was ordered. Since then the tracing has shown moderate variability with accelerations. Occasional late decelerations have been noted, but rare. She now has an epidural catheter in place that is not dosed, in the case that she needs to be taken for a section. She is somewhat tearful this am but consents to a medrano balloon. Maternal Data Information TRISTON Calculator Estimated Delivery Date Method Current WG Current Estimate 07/19/24 LMP (Certain) 39w 2d PFSH PFS Medical History Septate uterus Rosacea Allergic dermatitis Strain of right wrist Right shoulder strain Epigastric pain Gastric ulcer Anemia GI bleed Abdominal pain Cough in adult Sinusitis, acute Home Medications ?Medication ?Instructions ?Recorded ?Last Taken ?Type montelukast 10 mg tablet 10 mg PO QPM allergies 08/04/19 07/13/24 History (Singulair) PNV 153-FA 400 mcg-om3 35 mg-dha tab PO 12/06/23 07/13/24 History 25 mg-epa 5 mg-fish oil chew tablet buspirone 15 mg tablet 15 mg PO BID anxiety 12/20/23 07/13/24 History ondansetron 4 mg disintegrating 4 mg PO Q6H PRN nausea and 03/02/24 Unknown Rx tablet vomiting #60 tabs Allergy/AdvReac Type Severity Reaction Status Date / Time ciprofloxacin (From Cipro) Allergy Hives Verified 07/09/24 15:58 ciprofloxacin HCl (From Allergy Hives Verified 07/09/24 15:58 Cipro) levofloxacin (From Levaquin) Allergy Hives Verified 07/09/24 15:58 prednisone Allergy Hives Verified 07/09/24 15:58 Family History Grandfather Myocardial infarction Grandmother Arrhythmia Mother Crohn's disease Surgical History [place] teeth extracted History of hysteroscopy (08/12/20) History of esophagogastroduodenoscopy (EGD) (~01/25/18) History of cholecystectomy Social History adopted: No household members: spouse current occupational status: employed 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 [employer] current occupational exposures/hazards: No pets and animals: Yes pets and animals: dog(s) history of recent travel: No sexually active: Yes Smoking Status: Never smoker alcohol intake: current alcohol intake frequency: holidays/special occasions only details: not while substance use type: does not use well-balanced diet: daily or most days caffeine: No eating out: rarely or never during the past year weight has: remained stable what type of physical activity do you participate in: running and weight training frequency: 5-6 times per week duration: 30-45 minutes/day jeremy/moravian: None seatbelt use: always do you feel safe at home: Yes additional social history: Karlo- [facility] [employer] History 1 Elective abortions Hx Para 0 Spontaneous abortions Hx # Term Pregnancies Ectopic pregnancies Hx # Pregnancies Multiple births # of living children Visit Details Expected Delivery Route/Plan Labor Preferences- CB/BF classes: yes labor support person: Karlo labor intervention preferences: [] pain management options preferred: epidural cut cord/dad catch: yes : yes PP control planned: discussed discussed possible routes of delivery and associated risks: [] special requests: [] Plans Covid status: [] Flu vaccine: [] Tdap vaccine: given Rhogam: na LARC form signed: yes movement and labor precautions reviewed. Problem list reviewed and updated with the most current plan of care details and appropriate orders placed. Relevant counseling for the gestational age provided. Continue routine care and follow up unless otherwise noted in visit notes/problem list details OB Flowsheet Initial Weight: Not Recorded Date -?-?-?-?-?-?-?-?-?-?-?-?- EGA Weight BP Urine Prot -?-?-?-?-?-?-?-?-?-?-?-?- Glucose FHR FuHt Pres Dilation -?-?-?-?-?-?-?-?-?-?-?-?- Effaced St Visit Note 12/13/23 -?-?-?-?-?-?-?-?-?-?-?-?- 8w 5d 185 lb 8 oz 122/76 -?-?-?-?-?-?-?-?-?-?-?-?- 168 -?-?-?-?-?-?-?-?-?-?-?-?- KW- CRL cons wit h LMP. wants NIPT and carrier. 01/13/24 -?-?-?-?-?-?-?-?-?-?-?-?- 13w 1d 185 lb 112/72 Negative -?-?-?-?-?--?-?-?-?-?-?-?- Negative 150 -?-?-?-?-?-?-?-?-?-?-?-?- MH-No VB. Nausea improved. Br US confirmed FHT. Reviewed normal PN labs and NIPT, genetics. MFM US ordered 02/10/24 -?-?-?-?-?-?-?-?-?-?-?-?- 17w 1d 187 lb 114/70 Negative -?-?-?-?-?-?-?-?-?-?-?-?- Negative 156 -?-?-?-?-?-?-?-?-?-?-?-?- MH-No VB. FHT ea sily audible. Nausea still problematic/evenings. Will try phenergan in evenings. 03/02/24 -?-?-?-?-?-?-?-?-?-?-?-?- 20w 1d 191 lb 4 oz 113/69 Nega tive -?-?-?-?-?-?-?-?-?-?-?-?- Negative 155 -?-?-?-?-?-?-?-?-?-?-?-?- JV- no cramping or spotting. indigestion and nausea. normal anatomy scan 04/01/24 -?-?-?-?-?-?-?-?-?-?-?-?- 24w 3d 193 lb 2 oz 94/67 Nega tive -?-?-?-?-?-?-?-?-?-?-?-?- Negative 146 26 -?-?-?-?-?-?-?-?-?-?-?-?- JV- some upper a bdominal discomfort but no other complaints. GCT ordered for next visit. 04/29/24 -?-?-?-?-?-?-?-?-?-?-?-?- 28w 3d 196 lb 2 oz 102/64 Nega tive -?-?-?-?-?-?-?-?-?-?-?-?- Negative 153 28 -?-?-?-?-?-?-?-?-?-?-?-?- MH-No Vb, LOF. G ood FM. 28 wk labs pending. Larc. Tdap next visit 05/13/24 -?--?-?-?-?-?-?-?-?-?-?-?- 30w 3d 196 lb 8 oz 110/82 Nega tive -?-?-?-?-?-?-?-?-?-?-?-?- Negative 158 31 -?-?-?-?-?-?-?-?-?-?-?-?- MH-No VB, LOF. G ood FM. Tdap. CBC 05/27/24 -?-?-?-?-?-?-?-?-?-?-?-?- 32w 3d 198 lb 112/67 Negative -?-?-?-?-?-?-?-?-?-?-?-?- Negative 150 32 -?-?-?-?-?-?-?--?-?-?-?-?- SM- no vb lof go od fm no regular ctx 06/12/24 -?-?-?-?-?-?-?-?-?-?-?-?- 34w 5d 201 lb 6 oz 112/79 Nega tive -?-?-?-?-?-?-?-?-?-?-?-?- Negative 144 34.5 -?-?-?-?-?-?-?-?-?-?-?-?- LC- no vb/ctx/lo f. +fm. headaches last week. non today. LC- no vb/ctx/lof. +fm.larc signed. growth scan next saturday. 06/23/24 -?-?-?-?-?-?-?-?-?-?-?-?- 36w 2d 203 lb 129/82 Negative -?-?-?-?-?-?-?-?-?-?-?-?- Negative 120 35 0 -?-?-?-?-?-?-?-?-?-?-?-?- KW- no vb/lof/ct x. good fm. growth at 28%. discussed IOL at 39 KW- no vb/lof/ctx. good fm. growth at 28%. GBS today and labs ordered-having increased amount of swelling during the day. no other ex of pre e. discussed IOL at 39 07/03/24 -?-?-?-?-?-?-?-?-?-?-?-?- 37w 5d 204 lb 2 oz 120/71 Nega tive -?-?-?-?-?-?-?-?-?-?-?-?- Negative 120 36 Cephalic 0 -?-?-?-?-?-?-?-?-?-?-?-?- KW- no vb/lof/re gular ctx. good fm. KW- no vb/lof/regular ctx. g ood fm. 39 week IOL set up. urine culture done for urinary frequency 07/06/24 -?-?-?-?-?-?-?-?-?-?-?-?- 38w 1d 204 lb 128/79 Negative -?-?-?-?-?-?-?-?-?-?-?-?- Negative 120 36 Cephalic 0 .5 -?-?-?-?-?-?-?-?-?-?-?-?- 80 -1 JV-pt comp lains of right flank pain. it radiates to her right side but no fevers, no labial pain. + urinary frequency. today there are leukocytes in the urine, no blood or nitrites. culture from saturday is negative. station is low. will start abx due to leukocytes. consent for IOL signed today. 07/09/24 -?-?-?-?-?-?-?-?-?-?-?-?- 38w 4d 203 lb 4 oz 120/81 Nega tive -?-?-?-?-?-?-?-?-?-?-?-?- Negative 135 36 Cephalic 0 .5 -?-?-?-?-?-?-?-?-?-?-?-?- -1 JV- MAHESH is 14 today. labor precautions discussed. IOL saturday. no lof, vaginal bleeding, or dec fm. ROS Constitutional Constitutional: Denies change in weight, fatigue, fever(s), headache(s), poor appetite or weakness Eyes Eyes: Denies blurry vision, change in vision, seeing flashes or spots in vision ENT HEENT: Denies dizziness, headache(s), loss taste/smell or sore throat Cardiovascular Cardiovascular: Denies chest pain, dizziness, dyspnea, irregular heart rhythm, leg edema, palpitations, rapid heart rate or vomiting Respiratory/Chest Respiratory/Chest: Denies chest tightness, cough, dyspnea or breast pain Gastrointestinal Gastrointestinal: Denies abdominal pain, anorexia, constipation, cramping, diar julia, hemorrhoids, vomiting or weight changes Genitourinary Genitourinary: Denies dysuria, flank pain, genital lesions, genital pain, urinary frequency or urinary urgency Musculoskeletal Musculoskeletal: Denies back pain, difficulty walking, joint pain, limited range of motion, muscle cramps or numbness Integumentary Integumentary: Denies lesions or unusual bruising Neurologic Neurologic: Denies abnormal movements, abnormal speech, dizziness, numbness, seizure-like activity or syncope Psychiatric Psychiatric: Denies anxiety, behavioral changes, change in appetite, change in libido, cognitive impairment, confusion, depression, difficulty concentrating, hallucinations or suicidal thoughts Endocrine Endocrinology: Denies excessive sweating, polydipsia or polyuria Hematologic/Lymphatic Hematologic/Lymphatic: Denies easy bleeding, easy bruising or lymphadenopathy Allergic/Immunologic Allergic/Immunologic: Denies itchy eyes, lip swelling, seasonal rhinorrhea, rhinitis, throat swelling, tongue swelling, eczemia, wheezing or asthma Vital Signs Vital Signs Vital Signs: 07/13/24 22:14 07/13/24 22:14 07/13/24 22:15 Temperature Temperature Source Pulse Rate 58 L Respiratory Rate Blood Pressure 115/72 Blood Pressure Mean BP Systolic 115 BP Diastolic 72 Blood Pressure Source Blood Pressure Position Blood Pressure Location Pulse Ox 98 Oxygen Delivery Method 07/13/24 22:15 07/13/24 23:43 07/13/24 23:43 Temperature Temperature Source Pulse Rate 56 L 59 L Respiratory Rate Blood Pressure Blood Pressure Mean BP Systolic BP Diastolic Blood Pressure Source Blood Pressure Position Blood Pressure Location Pulse Ox 99 Oxygen Delivery Method 07/13/24 23:48 07/13/24 23:48 07/13/24 23:53 Temperature Temperature Source Pulse Rate 90 66 Respiratory Rate Blood Pressure Blood Pressure Mean BP Systolic BP Diastolic Blood Pressure Source Blood Pressure Position Blood Pressure Location Pulse Ox 98 Oxygen Delivery Method 07/13/24 23:53 07/13/24 23:58 07/13/24 23:58 Temperature Temperature Source Pulse Rate 78 Respiratory Rate Blood Pressure Blood Pressure Mean BP Systolic BP Diastolic Blood Pressure Source Blood Pressure Position Blood Pressure Location Pulse Ox 97 97 Oxygen Delivery Method 07/14/24 00:07 07/14/24 00:09 07/14/24 00:09 Temperature 98 F Temperature Source Temporal Pulse Rate 59 L 58 L Respiratory Rate 18 Blood Pressure 122/67 H Blood Pressure Mean 85 BP Systolic BP Diastolic Blood Pressure Source Monitor Blood Pressure Position Semi-Fowlers Blood Pressure Location Right Arm Pulse Ox 97 97 Oxygen Delivery Method Room Air 07/14/24 00:12 07/14/24 00:12 07/14/24 00:14 Temperature Temperature Source Pulse Rate 60 82 Respiratory Rate Blood Pressure 122/67 H Blood Pressure Mean BP Systolic 122 BP Diastolic 67 Blood Pressure Source Blood Pressure Position Blood Pressure Location Pulse Ox Oxygen Delivery Method 07/14/24 00:14 07/14/24 00:19 07/14/24 00:19 Temperature Temperature Source Pulse Rate 82 Respiratory Rate Blood Pressure Blood Pressure Mean BP Systolic BP Diastolic Blood Pressure Source Blood Pressure Position Blood Pressure Location Pulse Ox 98 98 Oxygen Delivery Method 07/14/24 00:24 07/14/24 00:24 07/14/24 00:29 Temperature Temperature Source Pulse Rate 62 59 L Respiratory Rate Blood Pressure Blood Pressure Mean BP Systolic BP Diastolic Blood Pressure Source Blood Pressure Position Blood Pressure Location Pulse Ox 98 Oxygen Delivery Method 07/14/24 00:29 07/14/24 00:34 07/14/24 00:34 Temperature Temperature Source Pulse Rate 59 L Respiratory Rate Blood Pressure Blood Pressure Mean BP Systolic BP Diastolic Blood Pressure Source Blood Pressure Position Blood Pressure Location Pulse Ox 98 98 Oxygen Delivery Method 07/14/24 00:39 07/14/24 00:39 07/14/24 00:44 Temperature Temperature Source Pulse Rate 66 63 Respiratory Rate Blood Pressure Blood Pressure Mean BP Systolic BP Diastolic Blood Pressure Source Blood Pressure Position Blood Pressure Location Pulse Ox 97 Oxygen Delivery Method 07/14/24 00:44 07/14/24 00:49 07/14/24 00:49 Temperature Temperature Source Pulse Rate 63 Respiratory Rate Blood Pressure Blood Pressure Mean BP Systolic BP Diastolic Blood Pressure Source Blood Pressure Position Blood Pressure Location Pulse Ox 97 97 Oxygen Delivery Method 07/14/24 00:54 07/14/24 00:54 07/14/24 01:11 Temperature Temperature Source Pulse Rate 64 65 Respiratory Rate Blood Pressure Blood Pressure Mean BP Systolic BP Diastolic Blood Pressure Source Blood Pressure Position Blood Pressure Location Pulse Ox 98 Oxygen Delivery Method 07/14/24 01:11 07/14/24 01:16 07/14/24 01:16 Temperature Temperature Source Pulse Rate 67 Respiratory Rate Blood Pressure Blood Pressure Mean BP Systolic BP Diastolic Blood Pressure Source Blood Pressure Position Blood Pressure Location Pulse Ox 98 97 Oxygen Delivery Method 07/14/24 01:21 07/14/24 01:21 07/14/24 01:26 Temperature Temperature Source Pulse Rate 66 64 Respiratory Rate Blood Pressure Blood Pressure Mean BP Systolic BP Diastolic Blood Pressure Source Blood Pressure Position Blood Pressure Location Pulse Ox 97 Oxygen Delivery Method 07/14/24 01:26 07/14/24 01:31 07/14/24 01:31 Temperature Temperature Source Pulse Rate 75 Respiratory Rate Blood Pressure Blood Pressure Mean BP Systolic BP Diastolic Blood Pressure Source Blood Pressure Position Blood Pressure Location Pulse Ox 97 97 Oxygen Delivery Method 07/14/24 01:36 07/14/24 01:36 07/14/24 01:41 Temperature Temperature Source Pulse Rate 83 90 Respiratory Rate Blood Pressure Blood Pressure Mean BP Systolic BP Diastolic Blood Pressure Source Blood Pressure Position Blood Pressure Location Pulse Ox 97 Oxygen Delivery Method 07/14/24 01:41 07/14/24 01:46 07/14/24 01:46 Temperature Temperature Source Pulse Rate 94 Respiratory Rate Blood Pressure Blood Pressure Mean BP Systolic BP Diastolic Blood Pressure Source Blood Pressure Position Blood Pressure Location Pulse Ox 99 98 Oxygen Delivery Method 07/14/24 01:51 07/14/24 01:51 07/14/24 01:56 Temperature Temperature Source Pulse Rate 90 89 Respiratory Rate Blood Pressure Blood Pressure Mean BP Systolic BP Diastolic Blood Pressure Source Blood Pressure Position Blood Pressure Location Pulse Ox 97 Oxygen Delivery Method 07/14/24 01:56 07/14/24 02:07 07/14/24 02:07 Temperature Temperature Source Temporal Pulse Rate Respiratory Rate 16 Blood Pressure Blood Pressure Mean BP Systolic BP Diastolic Blood Pressure Source Blood Pressure Position Blood Pressure Location Pulse Ox 97 Oxygen Delivery Method 07/14/24 02:07 07/14/24 02:18 07/14/24 02:18 Temperature 98.7 F Temperature Source Pulse Rate 112 H Respiratory Rate Blood Pressure 146/87 H Blood Pressure Mean BP Systolic 146 BP Diastolic 87 Blood Pressure Source Blood Pressure Position Blood Pressure Location Pulse Ox Oxygen Delivery Method 07/14/24 02:18 07/14/24 02:18 07/14/24 02:23 Temperature Temperature Source Pulse Rate 104 H 92 Respiratory Rate Blood Pressure Blood Pressure Mean BP Systolic BP Diastolic Blood Pressure Source Blood Pressure Position Blood Pressure Location Pulse Ox 100 Oxygen Delivery Method 07/14/24 02:23 07/14/24 02:23 07/14/24 02:23 Temperature Temperature Source Pulse Rate 88 Respiratory Rate Blood Pressure Blood Pressure Mean BP Systolic BP Diastolic Blood Pressure Source Blood Pressure Position Blood Pressure Location Pulse Ox 93 96 Oxygen Delivery Method 07/14/24 02:26 07/14/24 02:26 07/14/24 02:28 Temperature Temperature Source Pulse Rate 81 Respiratory Rate Blood Pressure 113/58 L 117/63 Blood Pressure Mean BP Systolic 113 117 BP Diastolic 58 63 Blood Pressure Source Blood Pressure Position Blood Pressure Location Pulse Ox Oxygen Delivery Method 07/14/24 02:28 07/14/24 02:28 07/14/24 02:33 Temperature Temperature Source Pulse Rate 80 91 Respiratory Rate Blood Pressure Blood Pressure Mean BP Systolic BP Diastolic Blood Pressure Source Blood Pressure Position Blood Pressure Location Pulse Ox 96 Oxygen Delivery Method 07/14/24 02:33 07/14/24 02:34 07/14/24 02:34 Temperature Temperature Source Pulse Rate 87 Respiratory Rate Blood Pressure 119/67 Blood Pressure Mean BP Systolic 119 BP Diastolic 67 Blood Pressure Source Blood Pressure Position Blood Pressure Location Pulse Ox 96 Oxygen Delivery Method 07/14/24 02:38 07/14/24 02:38 07/14/24 02:40 Temperature Temperature Source Pulse Rate 87 Respiratory Rate Blood Pressure 130/58 H Blood Pressure Mean BP Systolic 130 BP Diastolic 58 Blood Pressure Source Blood Pressure Position Blood Pressure Location Pulse Ox 97 Oxygen Delivery Method 07/14/24 02:40 07/14/24 02:43 07/14/24 02:43 Temperature Temperature Source Pulse Rate 84 80 Respiratory Rate Blood Pressure Blood Pressure Mean BP Systolic BP Diastolic Blood Pressure Source Blood Pressure Position Blood Pressure Location Pulse Ox 96 Oxygen Delivery Method 07/14/24 02:44 07/14/24 02:44 07/14/24 02:48 Temperature Temperature Source Pulse Rate 80 Respiratory Rate Blood Pressure 110/53 L 110/58 L Blood Pressure Mean BP Systolic 110 110 BP Diastolic 53 58 Blood Pressure Source Blood Pressure Position Blood Pressure Location Pulse Ox Oxygen Delivery Method 07/14/24 02:48 07/14/24 02:48 07/14/24 02:48 Temperature Temperature Source Pulse Rate 90 85 Respiratory Rate Blood Pressure Blood Pressure Mean BP Systolic BP Diastolic Blood Pressure Source Blood Pressure Position Blood Pressure Location Pulse Ox 97 Oxygen Delivery Method 07/14/24 02:56 07/14/24 02:56 07/14/24 03:01 Temperature Temperature Source Pulse Rate 85 79 Respiratory Rate Blood Pressure Blood Pressure Mean BP Systolic BP Diastolic Blood Pressure Source Blood Pressure Position Blood Pressure Location Pulse Ox 96 Oxygen Delivery Method 07/14/24 03:01 07/14/24 03:06 07/14/24 03:06 Temperature Temperature Source Pulse Rate 91 Respiratory Rate Blood Pressure Blood Pressure Mean BP Systolic BP Diastolic Blood Pressure Source Blood Pressure Position Blood Pressure Location Pulse Ox 97 98 Oxygen Delivery Method 07/14/24 03:11 07/14/24 03:11 07/14/24 03:16 Temperature Temperature Source Pulse Rate 87 79 Respiratory Rate Blood Pressure Blood Pressure Mean BP Systolic BP Diastolic Blood Pressure Source Blood Pressure Position Blood Pressure Location Pulse Ox 97 Oxygen Delivery Method 07/14/24 03:16 07/14/24 03:21 07/14/24 03:21 Temperature Temperature Source Pulse Rate 80 Respiratory Rate Blood Pressure Blood Pressure Mean BP Systolic BP Diastolic Blood Pressure Source Blood Pressure Position Blood Pressure Location Pulse Ox 97 97 Oxygen Delivery Method 07/14/24 03:26 07/14/24 03:26 07/14/24 03:30 Temperature Temperature Source Pulse Rate 75 80 Respiratory Rate Blood Pressure Blood Pressure Mean BP Systolic BP Diastolic Blood Pressure Source Blood Pressure Position Blood Pressure Location Pulse Ox 97 Oxygen Delivery Method 07/14/24 03:30 07/14/24 03:31 07/14/24 03:31 Temperature Temperature Source Pulse Rate 82 Respiratory Rate Blood Pressure Blood Pressure Mean BP Systolic BP Diastolic Blood Pressure Source Blood Pressure Position Blood Pressure Location Pulse Ox 89 97 Oxygen Delivery Method 07/14/24 03:36 07/14/24 03:36 07/14/24 03:43 Temperature Temperature Source Pulse Rate 80 75 Respiratory Rate Blood Pressure Blood Pressure Mean BP Systolic BP Diastolic Blood Pressure Source Blood Pressure Position Blood Pressure Location Pulse Ox 98 Oxygen Delivery Method 07/14/24 03:43 07/14/24 03:48 07/14/24 03:48 Temperature Temperature Source Pulse Rate 71 Respiratory Rate Blood Pressure Blood Pressure Mean BP Systolic BP Diastolic Blood Pressure Source Blood Pressure Position Blood Pressure Location Pulse Ox 97 97 Oxygen Delivery Method 07/14/24 03:53 07/14/24 03:53 Temperature Temperature Source Pulse Rate 93 Respiratory Rate Blood Pressure Blood Pressure Mean BP Systolic BP Diastolic Blood Pressure Source Blood Pressure Position Blood Pressure Location Pulse Ox 97 Oxygen Delivery Method Weight Weight: 203 lb Body Mass Index (BMI) 31.8 Physical Exam Const alert, oriented x3, no apparent distress and healthy appearing General Appearance: cooperative; Negative for anxious HEENT normocephalic Face and Sinus: normal facial exam Eyes EOMs intact bilaterally and no scleral icterus General Eye: normal appearance of both eyes Neck full ROM and supple Lymph Lymphatic: no lymphadenopathy noted Chest Chest: abnormal inspection of the chest Resp normal respiratory effort Effort and Inspection: able to speak in complete sentences Cardio regular rate GI soft to palpation and non-tender Inspection: gravid Palpation: soft; Negative for tender external exam normal Manual OB Exam: other cervix: /-2. a 20 fr medrano was inserted and inflated with 60cc ns. Back/Spine no CVA tenderness Extremity normal to inspection, full ROM and no clubbing, cyanosis or edema General Extremity: Negative for calf tenderness or edema Skin Lesions: no lesions Rashes: no rashes Psych mental status grossly normal Labs Labs Labs: Blood Type A POSITIVE Antibody Screen NEGATIVE Hct 37.9 % (37-47) Hgb 13.1 g/dL (12.0-15.0) Obstetrics Ultrasound Syphilis Total Ab Non-reactive Rubella IgG Antibody Reactive (Nonreactive) Hep Bs Antigen Non-Reactive (Nonreactive) Hepatitis C Antibody Non-Reactive (Nonreactive) Chlamydia DNA (FARIHA) Negative (Negative) N.gonorrhoeae DNA (FARIHA) Negative (Negative) HIV 1&2 Antibody Non-Reactive (Nonreactive) Glucose 1 Hr 50 gm 95 mg/dL (70-140) Assessment & Plan (1) Gestational thrombocytopenia: COMMENT: allergic to steroids. stable 130s. cbc at 36 weeks. (2) AMA (advanced maternal age) primigravida 35+: COMMENT: 36 wk growth US EFW 28%, AC 23% (3) Nausea and vomiting: QUALIFIERS: Vomiting type: unspecified Qualified Code(s): R11.2 - Nausea with vomiting, unspecified COMMENT: improving w zofran; phenergan added for evenings (4) Seasonal allergies: (5) Supervision of high-risk : QUALIFIERS: Trimester: third trimester Qualified Code(s): O09.93 - Supervision of high risk , unspecified, third trimester COMMENT: PRR,, TRISTON 07/19/24, girl Karlo (6) : QUALIFIERS: Weeks of gestation: 38 weeks Qualified Code(s): Z3A.38 - 38 weeks gestation of COMMENT: GBS neg, NIPT low risk, carrier neg. /4. Declines AFP. Normal Anatomy & consistent TRISTON. (7) Anxiety: COMMENT: stable
[2024-07-14] MEDS: Ondansetron 4 MG/2 ML Vial IV ×3 (08:06→21:53)
[2024-07-14] MEDS: 0.9% Saline Lock 10 ML Syringe IV ×3 (08:06→21:53)
[2024-07-14] MEDS: Lactated Ringers 1,000 ML 200 ML IV ×3 (10:08→21:45)
--- NOTE | 2024-07-14 11:42 | NURSING ---
patient requests medrano be removed due to discomfort
[2024-07-14] MEDS: Oxytocin 15 Units/NS 250ml 15 UNITS/250 ML IV.SOLN 2 UNITS IV (15:34)
--- NOTE | 2024-07-14 23:28 | PCM.PN.BLA ---
Progress Note patient pushing, doing well. ANDRAE having late decels with last few contractions. if persistent will proceed with vacuum assisted delivery + 3 station at present.
--- NOTE | 2024-07-14 23:29 | OP.PCM_ITS ---
Assessment & Plan (1) Gestational thrombocytopenia: COMMENT: allergic to steroids. stable 130s. cbc at 36 weeks. (2) AMA (advanced maternal age) primigravida 35+: COMMENT: 36 wk growth US EFW 28%, AC 23% (3) : QUALIFIERS: Weeks of gestation: 38 weeks Qualified Code(s): Z3A.38 - 38 weeks gestation of COMMENT: GBS neg, NIPT low risk, carrier neg. 4/4. Declines AFP. Normal Anatomy & consistent TRISTON. (4) Anxiety: COMMENT: stable (5) Supervision of high-risk : QUALIFIERS: Trimester: third trimester Qualified Code(s): O09.93 - Supervision of high risk , unspecified, third trimester COMMENT: PRR,, TRISTON 07/19/24, girl Karlo (6) Nausea and vomiting: QUALIFIERS: Vomiting type: unspecified Qualified Code(s): R11.2 - Nausea with vomiting, unspecified COMMENT: improving w zofran; phenergan added for evenings Maternal Data Information TRISTON Calculator Estimated Delivery Date Method Current WG Current Estimate 07/19/24 LMP (Certain) 39w 3d Vaginal Delivery Operative Information Pre-Operative Diagnosis: see a/p diagnoses Post-Operative Diagnosis: same Surgery / Procedure Performed: Spontaneous Vaginal Delivery Type of Anesthesia: Epidural Special Medications: none Estimated Blood Loss: 200 Fluids Replaced: crystalloid Findings Description of Procedure: Patient began pushing and delivered the head in the ANDRAE presentation. The head was delivered atraumatically . The anterior and posterior shoulders delivered without complication followed by the rest of the and the infant was place d on the maternal abdomen. Delayed cord clamping was employed for approximately 60 seconds. Cord was clamped and cut and gentle traction was applied to the cord and the placenta delivered spontaneously immediately following it was noted to be intact with three-vessel cord. The perineum and vagina were inspected and noted to have a first degree perineal laceration which was repaired in the usual fashion with 3-0 vicryl rapide. . EBL was 200 cc. Patient and infant tolerated delivery well. Amniotic Fluid Description: Clear Placental Delivery Description: Spontaneous Placenta Disposition: [facility] Cord Vessel Description: 3 Vessels Cord Entanglement: None Delayed Cord Clamping: Yes Post Vaginal Delivery Medications Given After Delivery: IV Pitocin Episiotomy Description: None Complication Complications: None Procedures Urinary/Genital [id number]: [id number] Vaginal Delivery [facility]
--- NOTE | 2024-07-14 23:30 | DCINST_ITS ---
Discharge Instructions Diet Discharge Diet: No restrictions Activity Discharge Activity: Return to Normal Activity, May Not Drive (while taking narcotic pain medications.) and May Shower May resume sexual activity in: 4-6 weeks Dressing / Incision Call your doctor if your incision/area has: Continuous Slow Oozing, Sudden Increased Bleeding, Increased Pain/ Swelling, Increased Redness and Foul Smelling Discharge Follow Up Care Please Follow Up With: Camelia Olea MD When: Call [phone] to make an appointment with your doctor in 6 weeks. If you had elevated blood pressure or 4th degree laceration, you will need to be seen in 2 weeks. Test Results: Test results from this visit will be discussed in further detail at your follow- up appointment, if applicable. Discharge Plan Admission Admit Date/Time: 07/13/24 21:33 Attending Provider: Sil Rhodes Primary Care Provider: Torin Zayas Discharge Orders/Prescriptions Prescriptions: No Action montelukast [Singulair] 10 mg tablet 10 mg PO QPM PNV no.[id number] 400 mcg-35 mg- 25 mg-5 mg tablet,chewable PO ondansetron 4 mg tablet,disintegrating 4 mg PO Q6H PRN (Reason: nausea and vomiting) Qty: 60 2RF buspirone 15 mg tablet 15 mg PO BID Referrals / Follow Up: Torin Zayas DO [Primary Care Provider] - Disposition Disposition (needs filled in before D/C Order can be placed): Home, Self Care
[2024-07-15] VITALS (45 sets, daily range): BP systolic 100–145; BP diastolic 59–96; PULSE 45–62; RESP 14–16; TEMP 36.2–36.8; O2SAT 92–98
[2024-07-15] MEDS: Oxytocin 15 Units/NS 250ml 15 UNITS/250 ML IV.SOLN 334 UNITS IV (00:48)
[2024-07-15] MEDS: busPIRone 15 MG TABLET PO ×2 (11:00→21:33)
[2024-07-15] MEDS: Naproxen 500 MG Tablet PO ×2 (11:04→21:33)
--- NOTE | 2024-07-15 15:56 | NURSING ---
student nurse charting reviewed that is used for educational and learning purposes.
[2024-07-15] MEDS: Acetaminophen 500 MG Tablet 1000 MG PO (16:59)
[2024-07-16 01:05] VITALS: BP 131/74; PULSE 55; RESP 14; TEMP 36.2; O2SAT 98
[2024-07-16 01:19] VITALS: BP 131/74; PULSE 54
--- NOTE | 2024-07-16 08:12 | PCM.PN.OB ---
Subjective Subjective Patient doing well without complaints. Tolerating PO. Ambulating and voiding without difficulty. Feeding well. Denies chest pain, shortness of breath, calf pain/swelling, fevers, chills, lightheadedness. Objective Data Objective Data Vital Signs: Vital Signs Temp Pulse Resp BP Pulse Ox O2 Del Method 97.1 F L 54 L 14 131/74 H 98 Room Air 07/16/24 01:05 07/16/24 01:07/16/24 01:07/16/24 01:07/16/24 01:05 07/16/24 01:05 Oxygen Delivery Method Room Air Weight: 203 lb Body Mass Index (BMI) 31.8 Intake & Output: Intake and Output for Last 24 Hours 07/14/24 07/15/24 07/16/24 23:59 23:59 23:59 Intake Total 5999.09 / 5999.09 635.67 / 635.67 Output Total 1350 / 1350 1000 / 1000 Balance 4649.09 / 4649.09 -364.33 / -364.33 Lab / Micro Data 07/13/24 22:25 ROS Constitutional Constitutional: Denies chills, fatigue, fever(s), poor appetite or weakness Eyes Eyes: Denies blurry vision, change in vision, seeing flashes or spots in vision ENT HEENT: Denies dizziness, headache(s), loss taste/smell or sore throat Cardiovascular Cardiovascular: Denies chest pain, dizziness, dyspnea, irregular heart rhythm, palpitations or rapid heart rate Respiratory/Chest Respiratory/Chest: Denies chest tightness, cough, dyspnea or breast pain Gastrointestinal Gastrointestinal: Denies abdominal pain, constipation or vomiting Genitourinary Genitourinary: Denies dysuria or flank pain Musculoskeletal Musculoskeletal: Denies difficulty walking, joint pain, limited range of motion or numbness Neurologic Neurologic: Denies abnormal movements, abnormal speech, dizziness, numbness, seizure-like activity or syncope Psychiatric Psychiatric: Denies anxiety, behavioral changes, change in appetite, confusion, depression or suicidal thoughts Physical Exam Const alert, oriented x3 and no apparent distress General Appearance: cooperative and comfortable Resp normal respiratory effort Cardio regular rate GI normal to inspection, nondistended, normoactive bowel sounds GI Narrative: uterus is firm below umbilicus Palpation: soft Back/Spine no CVA tenderness and thoraco-lumbar ROM normal Extremity normal to inspection, no clubbing, cyanosis or edema, no calf tenderness and no pedal edema Psych mental status grossly normal, thought process normal, cooperative, affect normal, speech normal, activity/motor behavior normal, denies homicidal ideation and denies suicidal ideation Assessment & Plan (1) Gestational thrombocytopenia: COMMENT: allergic to steroids. stable 130s. cbc at 36 weeks. (2) AMA (advanced maternal age) primigravida 35+: COMMENT: 36 wk growth US EFW 28%, AC 23% (3) Status post normal vaginal delivery: (4) Anxiety: COMMENT: stable PLAN: Plan s/p PPD # 1 1. routine post delivery care 2. breast feeding- support given 3. rh positive 4. rubella immune 5. patient would like discharge to home today. She declines pain medicaiton.
[2024-07-16 08:45] VITALS: BP 130/78; PULSE 51; RESP 16; TEMP 36.4; O2SAT 99
[2024-07-16] MEDS: Naproxen 500 MG Tablet PO (08:59)
[2024-07-16] MEDS: Senna/Docusate Sodium 1 Tablet PO (08:59)
[2024-07-16 09:07] VITALS: PULSE 51; RESP 16; TEMP 36.4; O2SAT 99
[2024-07-16] MEDS: busPIRone 15 MG TABLET PO (10:23)
--- NOTE | 2024-07-17 12:03 | CASEMGMT ---
Social Work Assessment Labor and Delivery Unit Patient Address: [address] [place] [address] Phone number: [phone] Date of Referral: 07/16/24 Time of Referral:? 1001 Referred By: Dr. Gunn Date of Intervention: ??07/16/24 Time of Intervention:? 1200 Reason for Referral:? anxiety and depression, on buspar Sw completed chart review and acknowledges social work consult due to maternal mental health history. Sw presented to bedside and introduced self to mother of baby (MOB- Fabi) and father of baby (FOB- Karlo). Sw explained reason for sw involvement and completed psychosocial assessment. History obtained from: medical records, MOB and FOB. Household composition: Currently residing in the family home is MOB, FOB and baby when ready for discharge. Parents deny any issues or concerns with housing. Patient's parent/guardian status:?ARACELIS states that she and FOB met while she was at work at the [employer] and he came to the school with his K-9 unit and they started talking. Parents have now been together for 4 years, no concerns reported of domestic violence or intimate partner violence. ? Medical History: ?ARACELIS is 34 year old female who is 1, para 0- now 1 following labor and delivery of . ARACELIS received routine care during with [facility]. ARACELIS presented to hospital for scheduled induction of labor. ARACELIS delivered baby via vaginal delivery on 07/15/24 at 39 weeks gestation. Baby girl, named Vivienne, was born weighing 6lb 9oz with apgars of 8 and 9 at one and five minutes of life, respectfully. ARACELIS states that breast feeding is going okay and that baby will be followed by [facility]. Educational Status:? Both parents completed high school and obtained college educations. ARACELIS has her Master's degree and NINA has his Bachelor's. No concerns with reading, learning or comprehension. Financial Status: Both parents are gainfully employed outside of the home. 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 Both parents are able to take 12 weeks off of work. Supplies: Parents have obtained all necessary baby supplies, including: car seat, safe sleep space, clothes, diapers and wipes. Childcare/Caregiver(s):? When both parents have returned to work they have a childcare routine organized that includes help from: paternal grandma, NINA and a friend of theirs. Transportation:?? Both parents have their drivers license and reliable means of transportation. No barriers at this time. Programs/Agencies Involved: Parents are over income for community resources that provide financial assistance. ??? Children Services/Legal Issues:???No history of children services involvement, no issues or concerns warranting referral to be made at this time. Behavioral Health Issues: ??Mental Health History:??FOB states that he has been diagnosed with anxiety and is prescribed lexapro by his primary care doctor. MOB states that she has been diagnosed with anxiety and is prescribed buspar by her doctor as well. ARACELIS states that her OBGYN provider has been extremely supportive regarding her mental health during her and is who initally encouraged her to start a medication to help with her mental health during her . MOB states that she does not intend to stop the medication during this period. MOB reports to feeling really good mentally now that baby has been born. ? Substance Use History: Parents deny substance use prior to and during . ?? Family History:??Parents deny family history of addiction/ substance use or significant mental health diagnoses. ??? Drug Screens: No drug screens observed in chart review. Family/Social Stressors:? Parents deny any issues, concerns or stressors at this time. Parents report that they are happy that baby is here and that MOB and baby are doing well. Support Systems: ARACELIS identifies that NINA and her mom and her sister's are her biggest supports. Depression/Shaken Baby/Safe Sleeping: Brooks educated parents at length regarding signs and symptoms of baby blues and mood and anxiety disorders to be on the lookout for during this period. MOB states that she has been educated on these topics and believes that if she were to struggle she has the support and appropriate coping skills to help her manage. FOB states that if MOB were to struggle he would be able to recognize that and would know how to help and support MOB. Brooks educated parents on shaken baby prevention and ABCs of safe sleep. Parents express understanding. ASSESSMENT:? MOB and baby are admitted following labor and delivery. MOB with mental health history positive for anxiety- she is prescribed medication to help manage her symptoms and states that she mentally feels good right now. MOB was talkative and open during assessment. MOB observed holding baby lovingly and affectionately. MOB states at this time she is just worried about people holding baby and baby catching germs. Sw validated MOB's concerns for baby's health- especially going into cold and flu season. MOB and FOB have natural supports that they can reach out to. Parents have also obtained all necessary baby supplies for baby. PLAN:? ?No other services requested or indicated. MOB and baby to be discharged when medically ready. Parents were provided literature regarding: signs and symptoms of baby blues and mood and anxiety disorders, Help Me Grow, shaken baby prevention, ABCs of safe sleep and a list of county resources that are available for them should any needs present themselves. Norris Yip, SIDEROGRAPHER, MAINTENANCE EQUIPMENT OPERATOR
--- NOTE | 2024-07-20 14:46 | NURSING ---
07/18/24 Follow up phone call questions asked during a patient call. Patient called to ask questions regarding . Patient states she called the nurse line the night before due to infant crying, states she gave formula x1 and the infant calmed down. States Saturday is better and the infant is nursing regularly and she feels like her supply is going up. Patient denies any questions or concerns about herself, denies any pain. States her bleeding is minimal. Patient states she is tired from being up most of the night with the baby. Patient asking what to do if it happens again Saturday night. Instructed patient that she could pump after feeds and give what she pumps, states understanding. Patient denies any further questions at this time. States she has a follow up visit on Saturday.
== END 2024-07-16 11:45 | disposition home or self-care (01) | DRG 806 ==
PROVIDERS: Admitting Provider Advanced Practice Midwife; PCP Family Medicine; Visit Provider Advanced Practice Midwife
DX: O76 Abnormality in fetal heart rate and rhythm complicating labor and delivery (principal); Z37.0 Single live birth; O99.12 Other diseases of the blood and blood-forming organs and certain disorders involving the immune mechanism complicating childbirth; D69.6 Thrombocytopenia, unspecified; F41.9 Anxiety disorder, unspecified; O99.344 Other mental disorders complicating childbirth; O70.0 First degree perineal laceration during delivery; Z3A.39 39 weeks gestation of pregnancy; Z79.899 Other long term (current) drug therapy
CPT/HCPCS: 59025; 59050; 85025; 86780; 86850; 86900; 86901; 99221; J7120; A4216; G0378; J2405; J3490

== ENCOUNTER → 2024-07-29 | Outpatient (CLI) | payer OTHER, SELFPAY ==
--- NOTE | 2024-07-29 12:10 | US_ITS ---
STUDY: ULTRASOUND BREAST - RIGHT REASON FOR EXAM: Female, 34 years old. Right breast pain. The patient is 2 weeks . TECHNIQUE: Axial and longitudinal images of the RIGHT breast were performed with a high resolution ultrasound transducer. # OF IMAGES: 39 COMPARISON: None. FINDINGS: RIGHT Breast: The lateral half of the right breast was examined with ultrasound. Dense fibroglandular tissue is seen. No sonographic abnormality is present. US/Breast Limited Unilateral IMPRESSION: No sonographic abnormalities present. ASSESSMENT CATEGORY: BIRADS Category 1: Negative. A letter regarding these results will be sent to the patient by the facility within 30 days. Electronically Signed: Dinh Stone MD at 14:32 EDT ,
== END | disposition home or self-care (01) ==
PROVIDERS: PCP Family Medicine; Referring Provider Nurse Practitioner Family; Visit Provider Nurse Practitioner Family
DX: N64.4 Mastodynia (principal)
CPT/HCPCS: 76642

== ENCOUNTER → 2024-08-27 | Outpatient (CLI) | payer OTHER, SELFPAY ==
[2024-09-05 07:08] LABS: HPV APTIMA, High Risk Negative (Negative)
== END | disposition home or self-care (01) ==
LOC: LABSPEC 16:21
PROVIDERS: PCP Family Medicine; Referring Provider Obstetrics & Gynecology; Visit Provider Obstetrics & Gynecology
DX: Z12.4 Encounter for screening for malignant neoplasm of cervix (principal)
CPT/HCPCS: 87624; 88175; G0145

== ENCOUNTER → 2025-01-13 | Outpatient (CLI) | payer OTHER, SELFPAY ==
[2025-01-13 10:54] LABS: Absolute Lymphocyte Count 1.91 X10^3/uL (0.83-4.51); Absolute Neutrophil Count 4.6 X10^3/uL (2.0-7.7); Basophil# 0.06 X10^3/uL; Basophil% 0.7 % (0-1); Eosinophil# 1.65 X10^3/uL; Eosinophils% 18.3 % (0-5); Hematocrit 42.1 % (37-47); Hemoglobin 14.3 g/dL (12.0-15.0); Lymphocyte # 1.91 X10^3/ul (0.83-4.51); Lymphocyte % 21.2 % (19-41); Mean Corpuscular Hgb 31.4 pg (27.0-32.0); Mean Corpuscular Volume 92.3 fL (81-99); Mean Platelet Vol. 12.1 fl (6.2-12.0); Monocyte# 0.81 X10^3/uL; NRBC Flagged by Analyzer 0 % (0-5); Neutrophil # 4.55 X10^3/uL (2.7-7.7); Neutrophil % 50.5 % (47-70); Platelet Count 181 K/mm3 (150-450); RBC Distribution Width CV 12.2 % (11.6-14.6); RBC Distribution Width SD 41.5 fl (35.1-43.9); Red Blood Count 4.56 M/mm3 (4.2-5.4)
[2025-01-13 11:23] LABS: ALB/GLOB Ratio 1.4 RATIO (0.9-2.4); AST(SGOT) 20 U/L (<=31); Alanine Aminotransfer ALT/SGPT 15 U/L (<=34); Albumin, Serum 3.9 g/dL (3.5-5.0); Alkaline Phosphatase 44 U/L (35-104); Anion Gap 9 (5-15); BUN 15 mg/dL (4-19); BUN/Creat Ratio 17.8 RATIO (10-20); Carbon Dioxide 25.8 mmol/L (21.0-32.0); Chloride 106 mmol/L (98-108); Creatinine, Serum 0.82 mg/dL (0.70-1.20); EST Glomerular Filtration Rate 94 (>60); Globulin 2.7 g/dL (2.2-4.2); Glucose 88 mg/dL (70-99); Potassium 4.2 mmol/L (3.3-5.1); Protein, Total 6.6 g/dL (5.9-8.4); Sodium Level 141 mmol/L (133-145)
== END | disposition home or self-care (01) ==
LOC: LAB 10:30
PROVIDERS: PCP Family Medicine; Referring Provider Student in an Organized Health Care Education/Training Program; Visit Provider Student in an Organized Health Care Education/Training Program
DX: R10.13 Epigastric pain (principal)
CPT/HCPCS: 36415; 80053; 85025